=== PATIENT | female | born 1950 | race Caucasian/White ===

== ENCOUNTER 2019-03-22 09:45 | Inpatient (IN) | payer OTHER ==
[2019-03-22 09:58] VITALS: BMI 34.3
--- NOTE | 2019-03-22 10:36 | PDOC ---
History of Present Illness - General Chief Complaint: Shortness of Breath Stated Complaint: SOB/ CHEST PAIN Time Seen by Provider: 03/22/19 10:16 Past History - Past Medical History Allergies/Adverse Reactions: Allergies Allergy/AdvReac Type Severity Reaction Status Date / Time Penicillins Allergy Verified 03/22/19 09:58 Home Medications: Ambulatory Orders Allopurinol [Zyloprim -] 100 mg PO BID 03/22/19 Amiodarone HCl 200 mg PO DAILY 03/22/19 Cyanocobalamin (Vitamin B-12) [Vitamin B-12] 1,000 mcg PO DAILY 03/22/19 Doxazosin Mesylate 2 mg PO DAILY 03/22/19 Ergocalciferol (Vitamin D2) [Vitamin D2] 1 cap PO WEEKLY 03/22/19 Ergocalciferol (Vitamin D2) [Vitamin D2] 50,000 unit PO WEEKLY 03/22/19 Folic Acid - 1 mg PO DAILY 03/22/19 Furosemide 20 mg PO DAILY 03/22/19 Hydralazine HCl 100 mg PO TID 03/22/19 Levothyroxine [Synthroid -] 50 mcg PO DAILY 03/22/19 Metoprolol Succinate 200 mg PO DAILY 03/22/19 [place]-3/Dha/Epa/Fish Oil [[place] 3 500 Softgel] 350 mg PO DAILY 03/22/19 Potassium Chloride [Klor-Con M10] 10 mg PO DAILY 03/22/19 Rivaroxaban [Xarelto -] 20 mg PO DAILY 03/22/19 Rosuvastatin Calcium 10 mg PO DAILY 03/22/19 Cancer: Yes (uterine with spot on her kidney) COPD: No Diabetes: Yes HTN: Yes - Psycho Social/Smoking Cessation Hx Smoking History: Never smoked *Physical Exam - Vital Signs Last Vital Signs Temp Pulse Resp BP Pulse Ox 97.9 F 82 18 101/34 L 99 03/22/19 09:53 03/22/19 09:53 03/22/19 09:53 03/22/19 09:53 03/22/19 09:53 ED Treatment Course - LABORATORY CBC & Chemistry Diagram: 03/22/19 10:39 03/22/19 19:32 Medical Decision Making - Medical Decision Making HPI: 68yo F with PMH of uterine CA (with spot on her kidney), afib on xarelto, HTN, HLD, afib, gout, thyroid disorder, "low blood counts" presenting with weakness, dyspnea on exertion, poor appetite, and an abnormal feeling in her chest. Patient states she last received a radiation treatment five weeks ago and had a total hysterectomy in October 2018. She was told she had "low blood counts" by her doctor and referred to a GI specialist and has an appointment on 04/10. Denies melena, hematochezia, or hematemesis. The chest sensation is described as "gas" and she has never had it before. No associated nausea, vomiting, or diaphoresis. The patient cannot walk to the bathroom without feeling short of breath. Feels like she has enough help at home. No fevers or chills. PCP: Dr. Zhou Faculty Research Assistant Onc: Dr. Berger ([place]) Urologist: Dr. Zhang Rad Onc: Dr. Caro GI: has an appointment to see Dr. Garcia on 04/10 ROS: Constitutional: no fever, +poor appetite HEENT: no throat pain, no dysphagia Cardiovascular: +chest pain, no palpitations Respiratory: no cough, +dyspnea on exertion Gastrointestinal: no abdominal pain, no nausea Genitourinary: no dysuria, no hematuria Musculoskeletal: no myalgia, no arthralgia Skin: no rash, no itching Neurologic: no headache, +weakness PE: General: Awake, alert, and fully oriented, in no acute distress Head: No signs of trauma Eyes: EOMI, sclera anicteric ENT: Moist mucus membranes Neck: Normal ROM, supple Lungs: Lungs clear, Normal breath sounds Cardio: Irregular rhythm, S1 and S2 present Abdomen: Soft, nontender. No guarding, no rebound, no masses Extremities: Normal range of motion, Distal pulses present SKIN: Warm, Dry, normal turgor Neurologic: Cranial nerves II through XII grossly intact. Normal speech ED Course/MDM: DDX including but not limited to anemia, metabolic derangement, PE, ACS, GI bleed Labs, EKG, CXR Fluids Pepcid 03/22/19 10:36 CBC WBC 5.9 K/mm3 (4.0-10.0) 03/22/19 10:39 RBC 2.32 M/mm3 (3.60-5.2) L 03/22/19 10:39 Hgb 8.6 GM/dL (10.7-15.3) L 03/22/19 10:39 Hct 24.5 % (32.4-45.2) L D 03/22/19 10:39 MCV 105.5 fl (80-96) H 03/22/19 10:39 MCH 36.8 pg (25.7-33.7) H D 03/22/19 10:39 MCHC 34.9 g/dl (32.0-36.0) 03/22/19 10:39 RDW 17.1 % (11.6-15.6) H 03/22/19 10:39 Plt Count 285 K/MM3 (134-434) D 03/22/19 10:39 MPV 6.7 fl (7.5-11.1) L D 03/22/19 10:39 Absolute Neuts (auto) 5.4 K/mm3 (1.5-8.0) 03/22/19 10:39 Neutrophils % 91.0 % (42.8-82.8) H 03/22/19 10:39 Lymphocytes % 3.3 % (8-40) L 03/22/19 10:39 Monocytes % 5.2 % (3.8-10.2) 03/22/19 10:39 Eosinophils % 0.4 % (0-4.5) 03/22/19 10:39 Basophils % 0.1 % (0-2.0) 03/22/19 10:39 Nucleated RBC % 0 % (0-0) 03/22/19 10:39 No leukocytosis Hgb is low CMP Sodium 142 mmol/L (136-145) 03/22/19 10:39 Potassium 3.7 mmol/L (3.5-5.1) 03/22/19 10:39 Chloride 105 mmol/L (98-107) 03/22/19 10:39 Carbon Dioxide 25 mmol/L (21-32) 03/22/19 10:39 Anion Gap 11 MMOL/L (8-16) 03/22/19 10:39 BUN 26.5 mg/dL (7-18) H 03/22/19 10:39 Creatinine 1.6 mg/dL (0.55-1.3) H 03/22/19 10:39 Est GFR (CKD-EPI)AfAm 38.52 03/22/19 10:39 Est GFR (CKD-EPI)NonAf 33.23 03/22/19 10:39 Random Glucose 174 mg/dL (74-106) H 03/22/19 10:39 Calcium 8.6 mg/dL (8.5-10.1) 03/22/19 10:39 Magnesium 2.2 mg/dL (1.8-2.4) 03/22/19 10:39 Total Bilirubin 1.5 mg/dL (0.2-1) H 03/22/19 10:39 AST 15 U/L (15-37) 03/22/19 10:39 ALT 20 U/L (13-61) 03/22/19 10:39 Alkaline Phosphatase 97 U/L (45-117) 03/22/19 10:39 Troponin I < 0.02 ng/ml (0.00-0.05) 03/22/19 10:39 Total Protein 7.5 g/dl (6.4-8.2) 03/22/19 10:39 Albumin 2.9 g/dl (3.4-5.0) L 03/22/19 10:39 Electrolytes unremarkable Cr elevated Tpn undetectable CXR with opacity on Left lower lobe D-dimer elevated While PE is a possibility, elevated Cr precludes our ability to obtain CT with contrast. Patient without tachycardia or hypoxia. I believe PNA or metastasis better explains patient's presentation especially given abnormal CXR Decision made to order CT Chest without contrast to better characterize this abnormality seen on chest xray 03/22/19 14:00 Dr. Wallace received verbal report regarding Lower lobe PNA We will cover with Vancomycin, Aztreonam, and Azithromycin (patient is pcn allergic) CURB-65 score of 3 Plan for admission 03/22/19 15:[address] Zhou, Awaiting callback from JON Aviles 03/22/19 15:[address] Zhou 03/22/19 16:35 Discussed case with JON Aviles who accepted patient for admission under Dr. Zhou 03/22/19 16:[address], as read by Imaging tour production supervisor: "Findings: There is a heterogeneous area of consolidation within the anterior aspect of the right lower lobe associated with some heterogeneous right lower lobe groundglass opacities. There is also some subtle heterogeneous opacity within the anterior aspect of the left lobe. These findings are most consistent with pneumonia. The remainder of the pulmonary parenchyma is clear. Visualized portions of the airway are within normal limits. There is a small left and tiny right pleural effusions. There are no enlarged axillary, hilar or mediastinal lymph nodes, by size criteria. Within the medial aspect of segment 2 of the liver there is a 1.8 cm heterogeneously hypodense nodule which is indeterminate but could represent a cyst. The remainder of the wrist lies portions of the upper abdomen are unremarkable. The visualized bony structures are unremarkable for the patient's age. Impression: 1. There is a consolidation within the left lower and upper lobes most consistent with pneumonia. 2. Hypodense nodule within the left lateral lobe of the liver which is not completely characterized. Recommend further evaluation with a targeted hepatic sonogram to assess for cyst versus solid neoplasm. 3. Small left and tiny right pleural effusions." Discharge - Discharge Information Problems reviewed: Yes Clinical Impression/Diagnosis: Pneumonia Qualifiers: Pneumonia type: due to unspecified organism Laterality: left Lung location: lower lobe of lung Qualified Code(s): J18.1 - Lobar pneumonia, unspecified organism Condition: Guarded - Admission Yes - Follow up/Referral - Patient Discharge Instructions - Post Discharge Activity
[2019-03-22 10:52] LABS: BASO % 0.1 % (0-2.0); EOS % 0.4 % (0-4.5); HEMATOCRIT 24.5 % (32.4-45.2); HEMOGLOBIN 8.6 GM/dL (10.7-15.3); LYMPH % 3.3 % (8-40); MCH 36.8 pg (25.7-33.7); MCHC 34.9 g/dl (32.0-36.0); MEAN CELL VOLUME 105.5 fl (80-96); MEAN PLT VOLUME 6.7 fl (7.5-11.1); MONO % 5.2 % (3.8-10.2); PLATELET COUNT 285 K/MM3 (134-434); RBC 2.32 M/mm3 (3.60-5.2); RDW 17.1 % (11.6-15.6); WHITE BLOOD COUNT 5.9 K/mm3 (4.0-10.0)
--- NOTE | 2019-03-22 10:52 | PDOC ---
Attending Attestation - Resident Resident Name: Georgette Stahl - ED Attending Attestation I have performed the following: I have examined & evaluated the patient, The case was reviewed & discussed with the resident, I agree w/resident's findings & plan, Exceptions are as noted - HPI HPI: 03/22/19 12:26 68y F hx of uterine ca (with met to kidney, sp hysterecomy, sp recent radiation therapy for her kidney met), afib on xaralto, htn, hl, recently dx anemia, presents with SOB/CLAROS for the past few days and mild R sided cp with inhalation. pt deines any exertional cp, cough, feve/chills, hemoptysis, orthopnea, incerased leg swelling, diarrhea, dysuria. Pt notes her exercise tolerance is significantly deminished - she was formerly able to get up her stairs slowly in one attempt, but since sat, notes she has needed to get up on he hands and knees. PCP: Dr. Zhou Advance Agent Onc: Dr. Berger ([place]) Urologist: Dr. Zhang Rad Onc: Dr. Caro GI: has an appointment to see Dr. Garcia on 04/10 - Physicial Exam PE: 03/22/19 12:31 GENERAL: The patient is awake, alert, and fully oriented, Nontoxic - in no acute distress. HEAD: Normocephalic, atraumatic. EYES: extraocular movements intact, sclera anicteric, conjunctiva clear. LUNGS: Breath sounds equal, clear to auscultation bilaterally. No wheezes, no rhonchi, no rales. HEART: Regular rate and rhythm, ABDOMEN: Soft, nontender, No guarding, no rebound. No CVA tenderness NEUROLOGICAL: No facial assymetry, Normal speech, PSYCH: Normal mood, normal affect. SKIN: Warm, Dry, normal turgor, - Medical Decision Making 03/22/19 12:32 ddx - pe - but pt already on ac, pna cxr noted for LLL infiltrate - will obtain CT to further evalutae this infiltrate anticipate admission for further management 03/22/19 15:42 ct noted for pna gallo treat with abx gallo admit for further managmnt
[2019-03-22 11:04] LABS: INR 3.8 (0.83-1.09); PROTHROMBIN TIME (PATIENT) 45.5 SEC (9.7-13.0)
[2019-03-22 11:05] LABS: ALBUMIN 2.9 g/dl (3.4-5.0); BILIRUBIN,TOTAL 1.5 mg/dL (0.2-1); BLOOD UREA NITROGEN 26.5 mg/dL (7-18); CALCIUM 8.6 mg/dL (8.5-10.1); CREATININE 1.6 mg/dL (0.55-1.3); MAGNESIUM 2.2 mg/dL (1.8-2.4); POTASSIUM 3.7 mmol/L (3.5-5.1); TOT PROT 7.5 g/dl (6.4-8.2)
[2019-03-22] MEDS ORDERED: SODIUM CHLORIDE 0.9% 500 ML INFUS.BAG IV ONE (11:16)
[2019-03-22] MEDS ORDERED: FAMOTIDINE 20 MG/50 ML IVPB 20 MG/50 ML MG IVPB ONE ×2 (11:39→11:49)
[2019-03-22 15:00] LABS: ANISOCYTOSIS 1+; MACROCYTOSIS 1+; OVALOCYTE 1+; PLATELET ESTIMATE NORMAL; TOXIC GRANULATION 1+
[2019-03-22] MEDS ORDERED: VANCOMYCIN 1,000 MG in DEXTROSE 5%-WATER - 250 ML IVPB ONE (15:11)
[2019-03-22] MEDS ORDERED: AZITHROMYCIN IVPB 500 MG in DEXTROSE 5%-WATER - 250 ML IVPB ONE (15:14)
[2019-03-22] MEDS ORDERED: AZITHROMYCIN IVPB 500 MG/250 ML BAG IVPB ONE (16:00)
[2019-03-22] MEDS: AZTREONAM 2 GM in DEXTROSE 5%-WATER - 50 ML IVPB ONE ×2 (16:51→18:13)
[2019-03-22] MEDS ORDERED: ACETAMINOPHEN 325 MG TABLET (FP) PO PRN (19:01)
[2019-03-22] MEDS ORDERED: BENZOCAINE/MENTH/CETYLPYRD CL 1 EACH LOZENGE MM PRN (19:05)
[2019-03-22] MEDS ORDERED: guaiFENesin/D-METHORPHAN HB 10 ML UNIT-DOSE CUPS PO PRN (19:05)
[2019-03-22 20:30] LABS: ALBUMIN 2.7 g/dl (3.4-5.0); BILIRUBIN,TOTAL 1.2 mg/dL (0.2-1); BLOOD UREA NITROGEN 25.3 mg/dL (7-18); CALCIUM 7.4 mg/dL (8.5-10.1); CREATININE 1.5 mg/dL (0.55-1.3); POTASSIUM 3.5 mmol/L (3.5-5.1); TOT PROT 6.2 g/dl (6.4-8.2)
[2019-03-22] MEDS: ALLOPURINOL 100 MG TABLET (FP) PO SCH ×2 (21:05→21:08)
[2019-03-23 07:44] LABS: BASO % 0.3 % (0-2.0); EOS % 0.7 % (0-4.5); HEMATOCRIT 20.3 % (32.4-45.2); LYMPH % 4.7 % (8-40); MCH 36.4 pg (25.7-33.7); MCHC 34.3 g/dl (32.0-36.0); MEAN CELL VOLUME 106.1 fl (80-96); MEAN PLT VOLUME 7.2 fl (7.5-11.1); MONO % 6.9 % (3.8-10.2); NEUT % 87.4 % (42.8-82.8); PLATELET COUNT 271 K/MM3 (134-434); RBC 1.92 M/mm3 (3.60-5.2); RDW 17.1 % (11.6-15.6); WHITE BLOOD COUNT 5.4 K/mm3 (4.0-10.0)
[2019-03-23] MEDS: LEVOTHYROXINE NA 50 MCG TABLET (FP) PO SCH (08:16)
--- NOTE | 2019-03-23 09:59 | HP ---
Admitting History and Physical - Primary Care Physician PCP: Rosy Zhou - Admission Chief Complaint: Difficulty breathing History of Present Illness: Patient is a 68 y/o female with past medical history of Uterine CA (with mets to kidney, s/p hysterectomy, s/p recent RT [address] Berger at [facility]), Afib on Xarelto, HTN, HLD, Anemia. Patient presented to ER after experiencing difficulty breathing x 3-4 days at home. She states pain was exacerbated with movement and felt chest pain when she would take a deep breath. Denies fever, chills, dizziness, or cough. History Source: Patient Limitations to Obtaining History: No Limitations - Past Medical History Cardiovascular: Yes: AFIB, HTN, Hyperlipdemia Renal/: Yes: Other (Kidney Metastasis) Heme/Onc: Yes: Anemia, Current Radiation Therapy - Past Surgical History Past Surgical History: Yes: Hysterectomy - Smoking History Smoking history: Never smoked - Social History ADL: Independent History of Recent Travel: No Home Medications - Allergies Allergies/Adverse Reactions: Allergies Allergy/AdvReac Type Severity Reaction Status Date / Time Penicillins Allergy Verified 03/22/19 09:58 - Home Medications Home Medications: Ambulatory Orders Allopurinol [Zyloprim -] 100 mg PO BID 03/22/19 Amiodarone HCl 200 mg PO DAILY 03/22/19 Cyanocobalamin (Vitamin B-12) [Vitamin B-12] 1,000 mcg PO DAILY 03/22/19 Doxazosin Mesylate 2 mg PO DAILY 03/22/19 Ergocalciferol (Vitamin D2) [Vitamin D2] 1 cap PO WEEKLY 03/22/19 Ergocalciferol (Vitamin D2) [Vitamin D2] 50,000 unit PO WEEKLY 03/22/19 Folic Acid - 1 mg PO DAILY 03/22/19 Furosemide 20 mg PO DAILY 03/22/19 Hydralazine HCl 100 mg PO TID 03/22/19 Levothyroxine [Synthroid -] 50 mcg PO DAILY 03/22/19 Metoprolol Succinate 200 mg PO DAILY 03/22/19 [place]-3/Dha/Epa/Fish Oil [[place] 3 500 Softgel] 350 mg PO DAILY 03/22/19 Potassium Chloride [Klor-Con M10] 10 mg PO DAILY 03/22/19 Rivaroxaban [Xarelto -] 20 mg PO DAILY 03/22/19 Rosuvastatin Calcium 10 mg PO DAILY 03/22/19 Review of Systems - Review of Systems Constitutional: reports: No Symptoms Eyes: reports: No Symptoms HENT: reports: No Symptoms Neck: reports: No Symptoms Cardiovascular: reports: Chest Pain Respiratory: reports: SOB, SOB on Exertion Gastrointestinal: reports: No Symptoms Genitourinary: reports: No Symptoms Breasts: reports: No Symptoms Reported Musculoskeletal: reports: No Symptoms Integumentary: reports: No Symptoms Neurological: reports: No Symptoms Endocrine: reports: No Symptoms Hematology/Lymphatic: reports: No Symptoms Psychiatric: reports: No Symptoms Physical Examination Vital Signs: Vital Signs Temperature 99 F 03/22/19 22:50 Pulse Rate 72 03/22/19 22:50 Respiratory Rate 18 03/22/19 22:50 Blood Pressure 111/44 L 03/22/19 22:50 O2 Sat by Pulse Oximetry (%) 97 03/22/19 22:50 Constitutional: Yes: No Distress, Calm Eyes: Yes: Conjunctiva Clear HENT: Yes: Atraumatic Cardiovascular: Yes: Regular Rate and Rhythm Respiratory: Yes: Regular, Diminished, On Nasal O2, SOB on Exertion Gastrointestinal: Yes: Normal Bowel Sounds, Soft Musculoskeletal: Yes: WNL Extremities: Yes: WNL Edema: No Neurological: Yes: Alert, Oriented Psychiatric: Yes: Alert, Oriented Labs: CBC, BMP 03/23/19 06:45 03/22/19 19:32 Imaging - Results Cat Scan: Report Reviewed Problem List - Problems (1) Afib Assessment/Plan: -Xarelto -Amiodarone for rate control Code(s): I48.91 - UNSPECIFIED ATRIAL FIBRILLATION (2) HTN (hypertension) Assessment/Plan: -low Na diet -Cardura Code(s): I10 - ESSENTIAL (PRIMARY) HYPERTENSION (3) Uterine cancer Assessment/Plan: -Oncology consult -last RT 1 month ago Code(s): C55 - MALIGNANT NEOPLASM OF UTERUS, PART UNSPECIFIED (4) SOB (shortness of breath) Assessment/Plan: -Pulm Consult -Bronchodilators -O2 via NC -Chest CT scan shows 2.2 x 2.1cm subpleural mass MADHAVI anterolaterally, LLL mass measuring 4.4 x 7.1cm, prominence of interstitial markings within the left base suggesting fluid or lymphangitic spread, 5.8mm nodule noted within the lateral segment of the right middle lobe, small effusion on the left, trace effusion on the right, left hilar adenopathy measuring 1.8cm, pretracheal lymph node measuring 5mm, 1.8 x 1.8 low-density lesion segment IVb of the liver is noted Code(s): R06.02 - SHORTNESS OF BREATH (5) Pneumonia Assessment/Plan: -Pulm Consult -Bronchodilators -O2 via NC -Chest CT scan shows 2.2 x 2.1cm subpleural mass MADHAVI anterolaterally, LLL mass measuring 4.4 x 7.1cm, prominence of interstitial markings within the left base suggesting fluid or lymphangitic spread, 5.8mm nodule noted within the lateral segment of the right middle lobe, small effusion on the left, trace effusion on the right, left hilar adenopathy measuring 1.8cm, pretracheal lymph node measuring 5mm, 1.8 x 1.8 low-density lesion segment IVb of the liver is noted -ID consult -no leukocytosis -low grade temps -Azithromycin, Ertapenem -BC pending -Urine Legiionella pending Code(s): J18.9 - PNEUMONIA, UNSPECIFIED ORGANISM Qualifiers: Pneumonia type: due to unspecified organism Laterality: left Lung location: lower lobe of lung Qualified Code(s): J18.1 - Lobar pneumonia, unspecified organism (6) HLD (hyperlipidemia) Assessment/Plan: -Rosuvastatin Code(s): E78.5 - HYPERLIPIDEMIA, UNSPECIFIED (7) Anemia Assessment/Plan: -Hg 7.0 -will transfuse 1U PRBC -monitor Hg daily -transfuse for Hg <7.0 -Stool OB -iron panel Code(s): D64.9 - ANEMIA, UNSPECIFIED (8) Liver lesion Assessment/Plan: -GI consult -Abdominal US Code(s): K76.9 - LIVER DISEASE, UNSPECIFIED Assessment/Plan see problem list
[2019-03-23] MEDS ORDERED: AZITHROMYCIN IVPB 250 MG in DEXTROSE 5%-WATER - 250 ML IVPB SCH (10:00)
[2019-03-23] MEDS ORDERED: ERTAPENEM SODIUM 1 GM in SODIUM CHLORIDE 50 ML IVPB SCH (10:00)
[2019-03-23] MEDS ORDERED: DOXAZOSIN MESYLATE 2 MG TABLET (FP) PO SCH (10:00)
[2019-03-23] MEDS: FUROSEMIDE 20 MG TABLET (FP) PO SCH (10:25)
[2019-03-23] MEDS: CYANOCOBALAMIN 1,000 MCG TABLET (FP) PO SCH (10:25)
[2019-03-23] MEDS: AMIODARONE HCL 200 MG TABLET (FP) PO SCH (10:25)
[2019-03-23] MEDS: ROSUVASTATIN CA 10 MG TABLET (FP) PO SCH (10:25)
[2019-03-23] MEDS: POTASSIUM CHLORIDE TABS 10 MEQ TABLET.ER (FP) PO SCH (10:25)
[2019-03-23] MEDS: FOLIC ACID 1 MG TABLET (FP) PO SCH (10:26)
[2019-03-23] MEDS: RIVAROXABAN 20 MG TABLET PO SCH (10:27)
[2019-03-23] MEDS: ERGOCALCIFEROL (VIT D2) 50,000 UNIT (1.25 MG) CAPSULE PO SCH (10:29)
[2019-03-23] MEDS: DOXAZOSIN MESYLATE 2 MG TABLET (FP) PO SCH (10:29)
--- NOTE | 2019-03-23 10:29 | EKG ---
Test Reason : Blood Pressure : / mmHG Vent. Rate : 080 BPM Atrial Rate : 080 BPM P-R Int : 146 ms QRS Dur : 094 ms QT Int : 386 ms P-R-T Axes : 000 003 073 degrees QTc Int : 445 ms SINUS RHYTHM WITH PREMATURE SUPRAVENTRICULAR COMPLEXES AND WITH FREQUENT PREMATURE VENTRICULAR COMPLEXES INCOMPLETE RIGHT BUNDLE BRANCH BLOCK NONSPECIFIC ST AND T WAVE ABNORMALITY ABNORMAL ECG WHEN COMPARED WITH ECG OF 10-JUL-2011 11:09, PREMATURE SUPRAVENTRICULAR COMPLEXES ARE NOW PRESENT Confirmed by DAVINA SPEARS MD ([id number]) on 03/23/2019 10:28:30 AM Referred By: Confirmed By:DAVINA SPEARS MD
[2019-03-23] MEDS: ALLOPURINOL 100 MG TABLET (FP) PO SCH ×2 (10:30→21:36)
--- NOTE | 2019-03-23 10:53 | CON.PULM ---
Consult Consult Specialty:: PULMONARY Referred by:: Dr Zhou Reason for Consultation:: lung mass - History of Present Illness Chief Complaint: shortness of breath History of Present Illness: 68yo female with h/o HTN, hyperlipidemia, anemia, atrial fibrillation, uterine ca s/p hysterectomy/RT who was admitted with shortness of breath. Denies chest pain or discomfort to me but per chart had been experiencing left sided pleuritic chest pain. She denies fevers, chills or sweats. No unintentional weight loss. CT chest showing MADHAVI nodule and LLL mass like consolidation. She denies any prior lung involvement but last CXR was in October during her hysterectomy. She had a recent CT A/P 3 weeks ago as an outpt, results pending. - History Source History Provided By: Patient, Family Member, Medical Record Limitations to Obtaining History: No Limitations - Past Medical History Cardio/Vascular: Yes: AFIB, HTN, Hyperlipdemia Renal/: Yes: Other (Kidney Metastasis) - Past Surgical History Past Surgical History: Yes: Hysterectomy - Smoking History Smoking history: Never smoked - Social History ADL: Independent History of Recent Travel: No Home Medications - Allergies Allergies/Adverse Reactions: Allergies Allergy/AdvReac Type Severity Reaction Status Date / Time Penicillins Allergy Verified 03/22/19 09:58 - Home Medications Home Medications: Ambulatory Orders Allopurinol [Zyloprim -] 100 mg PO BID 03/22/19 Amiodarone HCl 200 mg PO DAILY 03/22/19 Cyanocobalamin (Vitamin B-12) [Vitamin B-12] 1,000 mcg PO DAILY 03/22/19 Doxazosin Mesylate 2 mg PO DAILY 03/22/19 Ergocalciferol (Vitamin D2) [Vitamin D2] 1 cap PO WEEKLY 03/22/19 Ergocalciferol (Vitamin D2) [Vitamin D2] 50,000 unit PO WEEKLY 03/22/19 Folic Acid - 1 mg PO DAILY 03/22/19 Furosemide 20 mg PO DAILY 03/22/19 Hydralazine HCl 100 mg PO TID 03/22/19 Levothyroxine [Synthroid -] 50 mcg PO DAILY 03/22/19 Metoprolol Succinate 200 mg PO DAILY 03/22/19 [place]-3/Dha/Epa/Fish Oil [[place] 3 500 Softgel] 350 mg PO DAILY 03/22/19 Potassium Chloride [Klor-Con M10] 10 mg PO DAILY 03/22/19 Rivaroxaban [Xarelto -] 20 mg PO DAILY 03/22/19 Rosuvastatin Calcium 10 mg PO DAILY 03/22/19 Review of Systems - Review of Systems Constitutional: denies: Chills, Fever, Weakness Eyes: denies: Recent Change in Vision HENT: denies: Nasal Congestion, Throat Pain Neck: denies: Stiffness, Tenderness Cardiovascular: reports: Chest Pain, Shortness of Breath. denies: Edema, Palpitations Respiratory: denies: Cough, Hemoptysis, Wheezing Gastrointestinal: denies: Abdominal Pain, Nausea, Vomiting Genitourinary: denies: Dysuria, Hematuria Neurological: denies: Dizziness, Headache Endocrine: denies: Unexplained Weight Loss Physical Exam Vital Sings: Vital Signs Temperature 99 F 03/22/19 22:50 Pulse Rate 72 03/22/19 22:50 Respiratory Rate 18 03/22/19 22:50 Blood Pressure 111/44 L 03/22/19 22:50 O2 Sat by Pulse Oximetry (%) 97 03/22/19 22:50 Constitutional: Yes: Calm Eyes: Yes: Conjunctiva Clear, EOM Intact HENT: Yes: Atraumatic, Normocephalic Neck: Yes: Supple, Trachea Midline Cardiovascular: Yes: Regular Rate and Rhythm Respiratory: Yes: Diminished (decreased breath sounds at the bases) ...Clubbing: No Gastrointestinal: Yes: Normal Bowel Sounds, Soft. No: Tenderness Edema: No Neurological: Yes: Alert, Oriented Labs: CBC, BMP 03/23/19 06:45 03/22/19 19:32 Imaging - Results Chest X-ray: Report Reviewed, Image Reviewed Cat Scan: Report Reviewed, Image Reviewed (MADHAVI pleural based nodule, left hilar lymphadenopathy, LLL mass like consolidation) Problem List - Problems (1) SOB (shortness of breath) Code(s): R06.02 - SHORTNESS OF BREATH (2) Afib Code(s): I48.91 - UNSPECIFIED ATRIAL FIBRILLATION (3) Anemia Code(s): D64.9 - ANEMIA, UNSPECIFIED (4) HLD (hyperlipidemia) Code(s): E78.5 - HYPERLIPIDEMIA, UNSPECIFIED (5) HTN (hypertension) Code(s): I10 - ESSENTIAL (PRIMARY) HYPERTENSION (6) Liver lesion Code(s): K76.9 - LIVER DISEASE, UNSPECIFIED (7) Pneumonia Code(s): J18.9 - PNEUMONIA, UNSPECIFIED ORGANISM Qualifiers: Pneumonia type: due to unspecified organism Laterality: left Lung location: lower lobe of lung Qualified Code(s): J18.1 - Lobar pneumonia, unspecified organism (8) Uterine cancer Code(s): C55 - MALIGNANT NEOPLASM OF UTERUS, PART UNSPECIFIED Assessment/Plan Uterine Ca s/p Hysterectomy/RT Lung Nodule/Mass/Liver Lesion suspect metastatic disease r/o Pneumonia Atrial Fibrillation HTN Hyperlipidemia - would treat for pneumonia empirically although imaging suggestive of metastatic disease - obtain results of last CT A/P - will likely need biopsy of lung mass via CT guided needle biopsy or bronchoscopy - DVT prophylaxis Thank you for this consult Ventura Johnson MD
--- NOTE | 2019-03-23 11:31 | CONSULT ---
Consult - text type - Consultation Consultation Note: Hematology and oncology consult Subjective: The patient is a 68 yo f w/ PMH Uterine ca (s/p total hysterectomy and b/l oophrectomy w/ radiation), afib on xeralto, HTN, Anemia who comes into the ED c/ o progressively worsening SOB and dyspnea on exertion. The patient associates these symptoms w/ mild right sided CP. CT chest from the ED showed several left sided masses and nodules with associated lymphadenopathy. Hematology/oncology were called for assistance with management. Patient states that she was diagnosed with uterine cancer in august of 2018. She underwent a total hysterectomy and b/l oophrectomy in october of 2018 w/ Dr. Berger (district associate judge onc) at [place]. She subsequently underwent pelvic radiation with Dr. German. Patient states that she did not receive chemotherapy. A abdomen/ pelvic CT done recently at [facility] showed a "spot on the kidney" per the patient, and she has been seeing a urology oncologist (Dr. Zhang) to follow with this finding. Per the patient, she did not receive any treatment for this and it was never biopsied. In the emergency department, A CT of the chest was performed. The CT revealed a 2.2 x 2.1 cm subplural mass in the left upper lobe, a 4.4 x 7.1 cm mass in the left lower lobe, 5.8 mm nodule, left hilar adenopathy and a pre-tracheal lymph node measuring 5 mm. The patient was admitted for the treatment of community acquired versus post obstructive pneumonia. On my interview, the patient was found lying in bed on supplemental O2. She was slightly short of breath but could speak in full sentences. The patient states that her shortness of breath is unchanged since admission. Patient denies abdominal pain, fever, constipation, diarrhea, bleeding, cough, hemoptysis. Family History: Mother w/ breast ca, father with laryngeal Ca (was a smoker) Social Hx: Former smoker. Patient denies recreational drug or alcohol use. Objective: Vital Signs Temperature 98.8 F 03/23/19 10:00 Pulse Rate 66 03/23/19 10:00 Respiratory Rate 18 03/23/19 10:00 Blood Pressure 121/67 03/23/19 10:00 O2 Sat by Pulse Oximetry (%) 97 03/22/19 22:50 Physical Exam: General: Patient well appearing and sitting up in bed. Lungs: Crackles on the left in the mid lung field Heart: regular rate a rhythm, s1, s2 heard. No murmurs, gallops or rubs auscultated Abdomen: soft, nontender, nondistended, bowel sounds heard CBC, BMP 03/23/19 06:45 03/22/19 19:32 Assessment and plan: The patient is a 68 yo f w/ PMH Uterine ca (s/p total hysterectomy and b/l oophrectomy w/ radiation), afib on xeralto, HTN, Anemia who comes into the ED c/ o progressively worsening SOB and dyspnea on exertion. She was found to have several masses and lymphadenopathy in the left lung on CT chest. She has been admitted for the treatment of pneumonia and further evaluation of these lung masses. #Shortness of breath, dyspnea on exertion likely secondary to post obstructive versus community acquired pneumonia. -Antibiotics per ID -blood cultures pending #New masses, nodules and lymphadenopathy in the lung rule out metastatic disease. -Patient follows at [facility] for the majority of her medical care (see HPI) -will contact Dr. German, who has treated her in the past, for more information regarding her disease staging and history. -Patient may elect to follow-up with her oncologists at [place]. #Anemia possibly secondary chronic disease versus iron deficiency -hemoglobin 7.0 today -iron found to be low this admission. -Last colonoscopy was six years ago and was unremarkable -patient had recent endoscopy which was unremarkable -status post when units PRBC -follow-up post transfusion CBC -monitor daily CBCs
[2019-03-23] MEDS ORDERED: DEXTROSE 5%-WATER 100 ML IVPB ONE (12:19)
[2019-03-23] MEDS: CEFTRIAXONE 2 GM in DEXTROSE 5%-WATER 100 ML IVPB SCH (13:20)
[2019-03-23] MEDS: CLINDAMYCIN 600MG PREMIX IVPB 600 MG/50 ML BAG IVPB SCH ×2 (13:21→17:02)
--- NOTE | 2019-03-23 14:03 | CON.GI ---
Consult Consult Specialty:: GI Referred by:: Medicine Reason for Consultation:: anemia - History of Present Illness Chief Complaint: SOB History of Present Illness: 68F with h/o metastatic uterine ca s/p TAHBSO 10/2018 with pelvic RT completed one week ago, HTN, AF, presenting for evaluation of SOB. CT chest obtained and concerning for PNA vs metastasis, now receiving abx for PNA. GI consulted for anemia and for liver lesion. hgb 8.5, macrocytic, iron studies as per chart. Patient reports no abdominal pain, normal daily bm without bleeding. No N/V, no dysphagia, good appetite. Last colonoscopy 6 years ago, ? small polyps. Had EGD and colonoscopy 10 years ago that per her report were unremarkable. She has an appointment to see Dr. Garcia as an outpatient on 04/10. Liver lesion - seen on CT chest. Patient denies prior knowledge of this. Had CT A/P recently as part of renal lesion eval at [facility]. - History Source History Provided By: Patient, Family Member - Past Medical History Cardio/Vascular: Yes: AFIB, HTN, Hyperlipdemia Renal/: Yes: Other (Kidney Metastasis) - Past Surgical History Past Surgical History: Yes: Hysterectomy - Smoking History Smoking history: Never smoked - Social History ADL: Independent History of Recent Travel: No Home Medications - Allergies Allergies/Adverse Reactions: Allergies Allergy/AdvReac Type Severity Reaction Status Date / Time Penicillins Allergy Verified 03/22/19 09:58 - Home Medications Home Medications: Ambulatory Orders Allopurinol [Zyloprim -] 100 mg PO BID 03/22/19 Amiodarone HCl 200 mg PO DAILY 03/22/19 Cyanocobalamin (Vitamin B-12) [Vitamin B-12] 1,000 mcg PO DAILY 03/22/19 Doxazosin Mesylate 2 mg PO DAILY 03/22/19 Ergocalciferol (Vitamin D2) [Vitamin D2] 1 cap PO WEEKLY 03/22/19 Ergocalciferol (Vitamin D2) [Vitamin D2] 50,000 unit PO WEEKLY 03/22/19 Folic Acid - 1 mg PO DAILY 03/22/19 Furosemide 20 mg PO DAILY 03/22/19 Hydralazine HCl 100 mg PO TID 03/22/19 Levothyroxine [Synthroid -] 50 mcg PO DAILY 03/22/19 Metoprolol Succinate 200 mg PO DAILY 03/22/19 Jenkins-3/Dha/Epa/Fish Oil [Jenkins 3 500 Softgel] 350 mg PO DAILY 03/22/19 Potassium Chloride [Klor-Con M10] 10 mg PO DAILY 03/22/19 Rivaroxaban [Xarelto -] 20 mg PO DAILY 03/22/19 Rosuvastatin Calcium 10 mg PO DAILY 03/22/19 Review of Systems - Review of Systems Constitutional: reports: No Symptoms Eyes: reports: No Symptoms HENT: reports: No Symptoms Neck: reports: No Symptoms Cardiovascular: reports: Shortness of Breath Respiratory: reports: SOB Gastrointestinal: reports: No Symptoms Musculoskeletal: reports: No Symptoms Integumentary: reports: No Symptoms Hematology/Lymphatic: reports: No Symptoms Psychiatric: reports: No Symptoms Physical Exam-GI Vital Signs: Vital Signs Temperature 98.8 F 03/23/19 10:00 Pulse Rate 66 03/23/19 10:00 Respiratory Rate 18 03/23/19 10:00 Blood Pressure 121/67 03/23/19 10:00 O2 Sat by Pulse Oximetry (%) 97 03/22/19 22:50 Constitutional: Yes: Well Nourished, No Distress Eyes: Yes: Conjunctiva Clear Cardiovascular: Yes: Regular Rate and Rhythm Respiratory: Yes: CTA Bilaterally ...Palpate: Yes: Soft. No: Guarding, Tenderness ...Rectal Exam: Yes: Deferred Musculoskeletal: Yes: WNL Integumentary: Yes: WNL Neurological: Yes: Alert, Oriented Psychiatric: Yes: Alert, Oriented Labs: CBC, BMP 03/23/19 06:45 03/22/19 19:32 INR, PTT INR 3.80 (0.83-1.09) H 03/22/19 10:39 Imaging - Results Cat Scan: Report Reviewed Assessment/Plan 68F with anemia - mixed picture with a component of Fe deficiency. Patient was not put on iron after JODY in 10/2018 so could represent operative blood loss that has not recovered as yet. Drop to 7 from 8.6 in the absence of overt bleeding may be bone marrow related. Would favor endoscopic evaluation, but given lung findings, would defer until patient is optimized from a pulmonary perspective. Patient prefers to follow up with Dr. Garcia as an outpatient regarding procedures, which is reasonable as there is no overt bleeding and the appt is in 2.5 weeks. Regarding liver lesion, would ask that primary team obtain records of CT [facility]. Discussed in detail with patient and
--- NOTE | 2019-03-23 14:32 | CONSULT ---
Consult Consult Specialty:: Infectious Disease Referred by:: Stefan Jarrett Reason for Consultation:: PNA - History of Present Illness Chief Complaint: SOB x 3 days History of Present Illness: Pt is a 68 yo f with PMHx Uterine ca (s/p THBO w/ radiation, with kidney mets), afib on xarelto, HTN, Anemia, gout, hypothyroidism, DM presenting from home with 3 days hx of worsening SOB. Pt denies cough, or sputum production, no hemoptysis, no chest pain, denies fevers,or chills, no leg swelling. Has dyspnea on exertion but no orthopnea. Pt Had 5 weeks of radiation, last session 4 weeks ago. Was noted to have been anemic from PCP's office _ Dr Zhou and scheduled for GI follow up. She had her surgery at [facility] and was being followed up for possible kidney mets. No sick contacts, denies pneumonia vaccine, or flu vaccine. No hematuria, no rectal bleed, no abdominal pain. No weight loss. Pt first diagnosed with afib during cancer diagnosis this year, surgery October 2018. PMHx: As Above PShx s/p total hysterctomy with b/l oophorectomy Allergies: Penicillin- rash Social hx: Worked a s a homemaker Lives with Smoked from age 11 years to about 42 years (quit 28 years a go 1PPD) - History Source History Provided By: Patient, Medical Record Limitations to Obtaining History: No Limitations - Past Medical History Cardio/Vascular: Yes: AFIB, HTN, Hyperlipdemia Renal/: Yes: Other (Kidney Metastasis) Heme/Onc: Yes: Anemia, Cancer Endocrine: Yes: Hypothyroidism - Past Surgical History Past Surgical History: Yes: Hysterectomy - Alcohol/Substance Use Hx Alcohol Use: Yes Number of Drinks Daily: 2 - Smoking History Smoking history: Former smoker Have you smoked in the past 12 months: No Aproximately how many cigarettes per day: 20 If you are a former smoker, when did you quit?: 28 years ago - Social History Usual Living Arrangement: With Spouse ADL: Independent History of Recent Travel: No Home Medications - Allergies Allergies/Adverse Reactions: Allergies Allergy/AdvReac Type Severity Reaction Status Date / Time Penicillins Allergy Verified 03/22/19 09:58 - Home Medications Home Medications: Ambulatory Orders Allopurinol [Zyloprim -] 100 mg PO BID 03/22/19 Amiodarone HCl 200 mg PO DAILY 03/22/19 Cyanocobalamin (Vitamin B-12) [Vitamin B-12] 1,000 mcg PO DAILY 03/22/19 Doxazosin Mesylate 2 mg PO DAILY 03/22/19 Ergocalciferol (Vitamin D2) [Vitamin D2] 1 cap PO WEEKLY 03/22/19 Ergocalciferol (Vitamin D2) [Vitamin D2] 50,000 unit PO WEEKLY 03/22/19 Folic Acid - 1 mg PO DAILY 03/22/19 Furosemide 20 mg PO DAILY 03/22/19 Hydralazine HCl 100 mg PO TID 03/22/19 Levothyroxine [Synthroid -] 50 mcg PO DAILY 03/22/19 Metoprolol Succinate 200 mg PO DAILY 03/22/19 Pauline-3/Dha/Epa/Fish Oil [Pauline 3 500 Softgel] 350 mg PO DAILY 03/22/19 Potassium Chloride [Klor-Con M10] 10 mg PO DAILY 03/22/19 Rivaroxaban [Xarelto -] 20 mg PO DAILY 03/22/19 Rosuvastatin Calcium 10 mg PO DAILY 03/22/19 Family Medical History Family Hx Cancer: Mother (Breast cancer), Father (Thraot cancer) Review of Systems - Review of Systems Constitutional: denies: Chills, Fever, Night Sweats Eyes: denies: Blurred Vision HENT: denies: Difficult Swallowing, Nasal Congestion Cardiovascular: reports: Shortness of Breath. denies: Chest Pain, Edema Respiratory: reports: SOB on Exertion. denies: Cough, Hemoptysis Gastrointestinal: denies: Abdominal Pain Genitourinary: denies: Burning, Hematuria Musculoskeletal: denies: Back Pain Neurological: denies: Change in LOC, Confusion Physical Exam Vital Signs: Vital Signs Temperature 98.8 F 03/23/19 10:00 Pulse Rate 66 03/23/19 10:00 Respiratory Rate 18 03/23/19 10:00 Blood Pressure 121/67 03/23/19 10:00 O2 Sat by Pulse Oximetry (%) 97 03/22/19 22:50 Constitutional: Yes: Anxious, Obese Eyes: Yes: Conjunctiva Clear. No: PERRL, Sclera Icterus HENT: Yes: Atraumatic, Other (reddish macule tip of nose and L nose). No: Drooling, Epistaxis, Nasal Congestion Neck: Yes: Supple Cardiovascular: Yes: Regular Rate and Rhythm, S1, S2 Respiratory: Yes: Rales Gastrointestinal: Yes: Abdomen, Obese Edema: No Neurological: Yes: Alert, Oriented ...Motor Strength: WNL Psychiatric: Yes: Alert, Oriented Labs: CBC, BMP 03/23/19 06:45 03/22/19 19:32 Imaging - Results Chest X-ray: Report Reviewed, Image Reviewed (Lingular atelectasis/infiltrate with fulness of L hilumand ill defined density MADHAVI above atelectasis. Claear apex on L. Clear R lung and large heart) Cat Scan: Report Reviewed, Image Reviewed (2.2 x2.1 subpleural mass MADHAVI and ant lat LL mass 4.4 x7.1 cm. Prominenct interstitial lung markingsL base suggesting fluid/lymphagitic spread 5.8mm nodule R segment of ZR mid lobe. Pleural effusion , mild on L, trace on R. Hiatal hernia. 1.8x1.8 lesion of liver) Assessment/Plan Ambulatory Orders Allopurinol [Zyloprim -] 100 mg PO BID 03/22/19 Amiodarone HCl 200 mg PO DAILY 03/22/19 Cyanocobalamin (Vitamin B-12) [Vitamin B-12] 1,000 mcg PO DAILY 03/22/19 Doxazosin Mesylate 2 mg PO DAILY 03/22/19 Ergocalciferol (Vitamin D2) [Vitamin D2] 1 cap PO WEEKLY 03/22/19 Ergocalciferol (Vitamin D2) [Vitamin D2] 50,000 unit PO WEEKLY 03/22/19 Folic Acid - 1 mg PO DAILY 03/22/19 Furosemide 20 mg PO DAILY 03/22/19 Hydralazine HCl 100 mg PO TID 03/22/19 Levothyroxine [Synthroid -] 50 mcg PO DAILY 03/22/19 Metoprolol Succinate 200 mg PO DAILY 03/22/19 Pauline-3/Dha/Epa/Fish Oil [Pauline 3 500 Softgel] 350 mg PO DAILY 03/22/19 Potassium Chloride [Klor-Con M10] 10 mg PO DAILY 03/22/19 Rivaroxaban [Xarelto -] 20 mg PO DAILY 03/22/19 Rosuvastatin Calcium 10 mg PO DAILY 03/22/19 Current Medications Acetaminophen (Tylenol -) 650 mg PO Q4H PRN PRN Reason: PAIN OR FEVER Albuterol Sulfate (Ventolin 0.083% Nebulizer Soln -) 1 amp NEB Q6H PRN PRN Reason: SHORT OF BREATH/WHEEZING Allopurinol (Zyloprim -) 100 mg PO BID [facility] Last Admin: 03/23/19 10:30 Dose: 100 mg Amiodarone HCl (Cordarone -) 200 mg PO DAILY [facility] Last Admin: 03/23/19 10:25 Dose: 200 mg Benzocaine/Menthol (Cepacol Lozenge -) 1 each MM PRN PRN PRN Reason: SORE THROAT Cyanocobalamin (Vitamin B12 -) 1,000 mcg PO DAILY [facility] Last Admin: 03/23/19 10:25 Dose: 1,000 mcg Doxazosin Mesylate (Cardura -) 2 mg PO DAILY [facility] Last Admin: 03/23/19 10:29 Dose: 2 mg Ergocalciferol (Drisdol -) 50,000 unit PO Q7D@1000 [facility] Last Admin: 03/23/19 10:29 Dose: 50,000 unit Folic Acid (Folic Acid -) 1 mg PO DAILY [facility] Last Admin: 03/23/19 10:26 Dose: 1 mg Furosemide (Lasix -) 20 mg PO DAILY [facility] Last Admin: 03/23/19 10:25 Dose: 20 mg Guaifenesin (Robitussin Dm -) 10 ml PO Q4H PRN PRN Reason: COUGH Ceftriaxone Sodium 2 gm/ (Dextrose) 100 mls @ 100 mls/hr IVPB DAILY [facility]; Protocol Last Admin: 03/23/19 13:20 Dose: 100 mls/hr Clindamycin Phosphate (Cleocin 600 Mg Premix Ivpb -) 600 mg in 50 mls @ 100 mls /hr IVPB Q8H-IV [facility]; Protocol Last Admin: 03/23/19 13:21 Dose: 100 mls/hr Levothyroxine Sodium (Synthroid -) 50 mcg PO DAILY@0700 [facility] Last Admin: 03/23/19 08:16 Dose: 50 mcg Metoprolol Succinate (Toprol Xl -) 200 mg PO DAILY [facility] Last Admin: 03/23/19 10:26 Dose: 200 mg Potassium Chloride (K-Dur -) 10 meq PO DAILY [facility] Last Admin: 03/23/19 10:25 Dose: 10 meq Rivaroxaban (Xarelto) 20 mg PO DAILY [facility] Last Admin: 03/23/19 10:27 Dose: 20 mg Rosuvastatin Calcium (Crestor -) 10 mg PO DAILY [facility] Last Admin: 03/23/19 10:25 Dose: 10 mg Assessment/Plan: Pt is a 68 yo f with PMHx Uterine ca (s/p THBO w/ radiation, with kidney mets), afib on xarelto, HTN, Anemia, gout, hypothyroidism, DM presenting from home with 3 days hx of worsening SOB. Uterine ca (s/p THBO w/ radiation, with kidney mets), afib on xarelto, HTN, Anemia, gout, hypothyroidism, DM worsening SOB Possible symptomatic anemia Possible post obstructive PNA MADHAVI nodule LL consolidation Possible liver mets Penicilin allergy-rash Rash on nose Plan: Possible post obstructive PNA PSI-96, risk class IV, 8.2-9.3% Sputum cx Legionella AG Bcx- pending Ceftriaxone 2g daily- will monitor (allergy to pen-rash) Clindamycin 600mg Q6H D/W Dr Jamari [facility] PGY 3 Visit type - Emergency Visit Emergency Visit: Yes ED Registration Date: 03/22/19 Care time: The patient presented to the Emergency Department on the above date and was hospitalized for further evaluation of their emergent condition. - New Patient This patient is new to me today: Yes Date on this admission: 03/23/19 - Critical Care Critical Care patient: No ATTENDING PHYSICIAN STATEMENT I saw and evaluated the patient. I reviewed the resident's note and discussed the case with the resident. I agree with the resident's findings and plan as documented. SUBJECTIVE: OBJECTIVE: ASSESSMENT AND PLAN:
[2019-03-23] MEDS ORDERED: FUROSEMIDE 40 MG/4 ML INJECTABLE VIAL IVPUSH ONE (18:31)
[2019-03-23] MEDS: ALBUTEROL SO4 0.083% IH SOL 2.5 MG/3 ML VIAL.NEB. NEB PRN (20:00)
--- NOTE | 2019-03-23 20:58 | PN ---
Teaching Attending Note Name of Resident: Shankar Boothe ATTENDING PHYSICIAN STATEMENT I saw and evaluated the patient. I reviewed the resident's note and discussed the case with the resident. I agree with the resident's findings and plan as documented. SUBJECTIVE: Patient seen and examined Hx of uterine Ca - s/p TAHBSO followed by pelvic RT. Presents with SOB , left sided chest pain. CT with pleural based MADHAVI nodule and left lung mass vs consolidation Patient is tachyneic at rest on oxygen FH- mother with breast ca, father with throat ca. PMH - atrial fib HBP, anemia - requiring transfusion in past Last Vital Signs Temp Pulse Resp BP Pulse Ox 99.3 F 60 18 114/51 L 97 03/23/19 15:00 03/23/19 15:00 03/23/19 15:00 03/23/19 15:00 03/22/19 22:50 HEENT: SUKHDE[place], EOM Intact Oropharynx: No thrush, No mucositis Neck: Supple Nodes: Without adenopathy Breasts: Without masses Cor: atrial fib , systolic murmur Lungs:rales LLL Abd: Soft, Normal bowel sounds, No organomegaly Ext:No significant edema Skin: No rashes, Integument intact CBC, BMP 03/23/19 06:45 03/22/19 19:32 Current Medications Generic Name Dose Route Start Last Admin Trade Name Freq PRN Reason Stop Dose Admin Acetaminophen 650 mg 03/22/19 19:01 Tylenol - PO Q4H PRN PAIN OR FEVER Albuterol Sulfate 1 amp 03/22/19 19:01 Ventolin 0.083% Nebulizer Soln - NEB Q6H PRN SHORT OF BREATH/WHEEZING Allopurinol 100 mg 03/22/19 22:00 03/23/19 10:30 Zyloprim - PO 100 mg BID [facility] Administration Amiodarone HCl 200 mg 03/23/19 10:00 03/23/19 10:25 Cordarone - PO 200 mg DAILY [facility] Administration Benzocaine/Menthol 1 each 03/22/19 19:05 Cepacol Lozenge - MM PRN PRN SORE THROAT Cyanocobalamin 1,000 mcg 03/23/19 10:00 03/23/19 10:25 Vitamin B12 - PO 1,000 mcg DAILY [facility] Administration Doxazosin Mesylate 2 mg 03/23/19 10:00 03/23/19 10:29 Cardura - PO 2 mg DAILY [facility] Administration Ergocalciferol 50,000 unit 03/23/19 10:00 03/23/19 10:29 Drisdol - PO 50,000 unit Q7D@1000 [facility] Administration Folic Acid 1 mg 03/23/19 10:00 03/23/19 10:26 Folic Acid - PO 1 mg DAILY [facility] Administration Furosemide 20 mg 03/23/19 10:00 03/23/19 10:25 Lasix - PO 20 mg DAILY [facility] Administration Guaifenesin 10 ml 03/22/19 19:05 Robitussin Dm - PO Q4H PRN COUGH Ceftriaxone Sodium 2 gm/ 100 mls @ 100 mls/hr 03/23/19 12:15 03/23/19 13:20 Dextrose IVPB 100 mls/hr DAILY [facility] Administration Protocol Clindamycin Phosphate 600 mg in 50 mls @ 100 mls/hr 03/23/19 12:00 03/23/19 17:02 Cleocin 600 Mg Premix Ivpb - IVPB 100 mls/hr Q8H-IV [facility] Administration Protocol Levothyroxine Sodium 50 mcg 03/23/19 07:00 03/23/19 08:16 Synthroid - PO 50 mcg DAILY@0700 [facility] Administration Metoprolol Succinate 200 mg 03/23/19 10:00 03/23/19 10:26 Toprol Xl - PO 200 mg DAILY [facility] Administration Potassium Chloride 10 meq 03/23/19 10:00 03/23/19 10:25 K-Dur - PO 10 meq DAILY [facility] Administration Rivaroxaban 20 mg 03/23/19 10:00 03/23/19 10:27 Xarelto PO 20 mg DAILY [facility] Administration Rosuvastatin Calcium 10 mg 03/23/19 10:00 03/23/19 10:25 Crestor - PO 10 mg DAILY [facility] Administration Impression: Endometrial ca--s/p JODY-BSO/RT Pleural based MADHAVI mass Left lung consolidation - mass vs pneumonia Liver lesion Atrial fib A/C Anemia Iron studies compatible with iron deficiency and chronic disease Has mild renal insufficiency Macrocytic anemia despite low Fe++ with normal LFT's, B-12, folate, ( receiving therapy),mild chemical hypothyroidism Plan: Stool guaics antibiotic therapy Will need biopsy of lung in future PET in future would also be useful Needs flow cytometry, retic . Macrocytosis - currently not explained [place] is that care will return to [facility] in future . If not , need details of endometrial ca--? MSI, tissue in future with MSI, PDL-1. and foundation studies OBJECTIVE: ASSESSMENT AND PLAN:
--- NOTE | 2019-03-23 21:17 | PN ---
Teaching Attending Note Name of Resident: Mercy Lyons ATTENDING PHYSICIAN STATEMENT I saw and evaluated the patient. I reviewed the resident's note and discussed the case with the resident. I agree with the resident's findings and plan as documented. SUBJECTIVE: OBJECTIVE: ASSESSMENT AND PLAN: ENDOMETRIAL CA PROBABLE LUNG METS ? POST OBSTRUCTVE PNEUMONIA SOFT TISSUE INFECTION, NOSE PCN ALLERGY AWAIT C/S EMPIRIC CLINDAMYCIN/ CEFTRIAXONE LUNG BX
[2019-03-24] MEDS: CLINDAMYCIN 600MG PREMIX IVPB 600 MG/50 ML BAG IVPB SCH ×3 (02:32→17:21)
[2019-03-24] MEDS: LEVOTHYROXINE NA 50 MCG TABLET (FP) PO SCH ×2 (06:05→11:55)
[2019-03-24] MEDS: ALBUTEROL SO4 0.083% IH SOL 2.5 MG/3 ML VIAL.NEB. NEB PRN ×2 (06:11→19:57)
[2019-03-24 08:09] LABS: HEMATOCRIT 23.6 % (32.4-45.2); MCH 34.7 pg (25.7-33.7); MCHC 33.9 g/dl (32.0-36.0); MEAN CELL VOLUME 102.5 fl (80-96); MEAN PLT VOLUME 7.1 fl (7.5-11.1); PLATELET COUNT 325 K/MM3 (134-434); RBC 2.31 M/mm3 (3.60-5.2); RDW 20.1 % (11.6-15.6); WHITE BLOOD COUNT 7.4 K/mm3 (4.0-10.0)
[2019-03-24 08:33] LABS: ALBUMIN 2.7 g/dl (3.4-5.0); BILIRUBIN,TOTAL 0.9 mg/dL (0.2-1); BLOOD UREA NITROGEN 20.7 mg/dL (7-18); CALCIUM 7.8 mg/dL (8.5-10.1); CREATININE 1.4 mg/dL (0.55-1.3); POTASSIUM 3.6 mmol/L (3.5-5.1); TOT PROT 6.6 g/dl (6.4-8.2)
[2019-03-24] MEDS ORDERED: DEXTROSE 5%-WATER 100 ML IVPB ONE (09:41)
--- NOTE | 2019-03-24 10:02 | PN ---
Progress Note, Physician - Current Medication List Current Medications: Active Medications Acetaminophen (Tylenol -) 650 mg PO Q4H PRN PRN Reason: PAIN OR FEVER Last Admin: 03/23/19 21:36 Dose: 650 mg Albuterol Sulfate (Ventolin 0.083% Nebulizer Soln -) 1 amp NEB Q6H PRN PRN Reason: SHORT OF BREATH/WHEEZING Last Admin: 03/24/19 06:11 Dose: 1 amp Allopurinol (Zyloprim -) 100 mg PO BID [facility] Last Admin: 03/23/19 21:36 Dose: 100 mg Amiodarone HCl (Cordarone -) 200 mg PO DAILY [facility] Last Admin: 03/23/19 10:25 Dose: 200 mg Benzocaine/Menthol (Cepacol Lozenge -) 1 each MM PRN PRN PRN Reason: SORE THROAT Cyanocobalamin (Vitamin B12 -) 1,000 mcg PO DAILY [facility] Last Admin: 03/23/19 10:25 Dose: 1,000 mcg Doxazosin Mesylate (Cardura -) 2 mg PO DAILY [facility] Last Admin: 03/23/19 10:29 Dose: 2 mg Ergocalciferol (Drisdol -) 50,000 unit PO Q7D@1000 [facility] Last Admin: 03/23/19 10:29 Dose: 50,000 unit Folic Acid (Folic Acid -) 1 mg PO DAILY [facility] Last Admin: 03/23/19 10:26 Dose: 1 mg Furosemide (Lasix -) 20 mg PO DAILY [facility] Last Admin: 03/23/19 10:25 Dose: 20 mg Guaifenesin (Robitussin Dm -) 10 ml PO Q4H PRN PRN Reason: COUGH Ceftriaxone Sodium 2 gm/ (Dextrose) 100 mls @ 100 mls/hr IVPB DAILY [facility]; Protocol Last Admin: 03/23/19 13:20 Dose: 100 mls/hr Clindamycin Phosphate (Cleocin 600 Mg Premix Ivpb -) 600 mg in 50 mls @ 100 mls /hr IVPB Q8H-IV [facility]; Protocol Last Admin: 03/24/19 02:32 Dose: 100 mls/hr Levothyroxine Sodium (Synthroid -) 50 mcg PO DAILY@0700 [facility] Last Admin: 03/24/19 06:05 Dose: Not Given Metoprolol Succinate (Toprol Xl -) 200 mg PO DAILY [facility] Last Admin: 03/23/19 10:26 Dose: 200 mg Potassium Chloride (K-Dur -) 10 meq PO DAILY [facility] Last Admin: 03/23/19 10:25 Dose: 10 meq Rivaroxaban (Xarelto) 20 mg PO DAILY [facility] Last Admin: 03/23/19 10:27 Dose: 20 mg Rosuvastatin Calcium (Crestor -) 10 mg PO DAILY [facility] Last Admin: 03/23/19 10:25 Dose: 10 mg - Objective Vital Signs: Vital Signs Temperature 98.1 F 03/24/19 06:33 Pulse Rate 64 03/24/19 06:33 Respiratory Rate 20 03/24/19 08:52 Blood Pressure 127/62 03/24/19 06:33 O2 Sat by Pulse Oximetry (%) 95 03/24/19 08:52 Labs: CBC, BMP 03/24/19 07:33 03/24/19 07:33 INR, PTT INR 3.80 (0.83-1.09) H 03/22/19 10:39 Assessment/Plan - Problems (1) Afib Assessment/Plan: -Xarelto--hold--cardio -Amiodarone for rate control Code(s): I48.91 - UNSPECIFIED ATRIAL FIBRILLATION (2) HTN (hypertension) Assessment/Plan: -low Na diet -Cardura Code(s): I10 - ESSENTIAL (PRIMARY) HYPERTENSION (3) Uterine cancer Assessment/Plan: -Oncology consult -last RT 1 month ago Code(s): C55 - MALIGNANT NEOPLASM OF UTERUS, PART UNSPECIFIED (4) SOB (shortness of breath) Assessment/Plan: -Pulm Consult -Bronchodilators -O2 via NC -Chest CT scan shows 2.2 x 2.1cm subpleural mass MADHAVI anterolaterally, LLL mass measuring 4.4 x 7.1cm, prominence of interstitial markings within the left base suggesting fluid or lymphangitic spread, 5.8mm nodule noted within the lateral segment of the right middle lobe, small effusion on the left, trace effusion on the right, left hilar adenopathy measuring 1.8cm, pretracheal lymph node measuring 5mm, 1.8 x 1.8 low-density lesion segment IVb of the liver is noted -Pet Scan Code(s): R06.02 - SHORTNESS OF BREATH (5) Pneumonia Assessment/Plan: -Pulm Consult -Bronchodilators -O2 via NC -Chest CT scan shows 2.2 x 2.1cm subpleural mass MADHAVI anterolaterally, LLL mass measuring 4.4 x 7.1cm, prominence of interstitial markings within the left base suggesting fluid or lymphangitic spread, 5.8mm nodule noted within the lateral segment of the right middle lobe, small effusion on the left, trace effusion on the right, left hilar adenopathy measuring 1.8cm, pretracheal lymph node measuring 5mm, 1.8 x 1.8 low-density lesion segment IVb of the liver is noted -ID consult -no leukocytosis -low grade temps -Azithromycin, Ertapenem -BC pending -Urine Legiionella pending Code(s): J18.9 - PNEUMONIA, UNSPECIFIED ORGANISM Qualifiers: Pneumonia type: due to unspecified organism Laterality: left Lung location: lower lobe of lung Qualified Code(s): J18.1 - Lobar pneumonia, unspecified organism (6) HLD (hyperlipidemia) Assessment/Plan: -Rosuvastatin Code(s): E78.5 - HYPERLIPIDEMIA, UNSPECIFIED (7) Anemia Assessment/Plan: -Hg 7.0 -will transfuse 1U PRBC -monitor Hg daily -transfuse for Hg <7.0 -Stool OB -iron panel Code(s): D64.9 - ANEMIA, UNSPECIFIED (8) Liver lesion Assessment/Plan: -GI consult -Abdominal US Code(s): K76.9 - LIVER DISEASE, UNSPECIFIED
--- NOTE | 2019-03-24 10:52 | PN ---
Progress Note (short form) - Note Progress Note: PULMONARY Feels better today. Less short of breath and chest pain resolved. Vital Signs Period Temp Pulse Resp BP Sys/Kenney Pulse Ox Last 24 Hr 98.1 F-100.0 F 60-78 13-24 114-153/46-64 95-97 Gen: less tachypneic Heart: RRR Lung: decreased breath sounds at the bases Abd: soft, nontender Ext: no edema CBC, BMP 03/24/19 07:33 03/24/19 07:33 Active Medications Acetaminophen (Tylenol -) 650 mg PO Q4H PRN PRN Reason: PAIN OR FEVER Last Admin: 03/23/19 21:36 Dose: 650 mg Albuterol Sulfate (Ventolin 0.083% Nebulizer Soln -) 1 amp NEB Q6H PRN PRN Reason: SHORT OF BREATH/WHEEZING Last Admin: 03/24/19 06:11 Dose: 1 amp Allopurinol (Zyloprim -) 100 mg PO BID [facility] Last Admin: 03/23/19 21:36 Dose: 100 mg Amiodarone HCl (Cordarone -) 200 mg PO DAILY [facility] Last Admin: 03/23/19 10:25 Dose: 200 mg Benzocaine/Menthol (Cepacol Lozenge -) 1 each MM PRN PRN PRN Reason: SORE THROAT Cyanocobalamin (Vitamin B12 -) 1,000 mcg PO DAILY [facility] Last Admin: 03/23/19 10:25 Dose: 1,000 mcg Doxazosin Mesylate (Cardura -) 2 mg PO DAILY [facility] Last Admin: 03/23/19 10:29 Dose: 2 mg Ergocalciferol (Drisdol -) 50,000 unit PO Q7D@1000 [facility] Last Admin: 03/23/19 10:29 Dose: 50,000 unit Folic Acid (Folic Acid -) 1 mg PO DAILY [facility] Last Admin: 03/23/19 10:26 Dose: 1 mg Furosemide (Lasix -) 20 mg PO DAILY [facility] Last Admin: 03/23/19 10:25 Dose: 20 mg Guaifenesin (Robitussin Dm -) 10 ml PO Q4H PRN PRN Reason: COUGH Ceftriaxone Sodium 2 gm/ (Dextrose) 100 mls @ 100 mls/hr IVPB DAILY [facility]; Protocol Last Admin: 03/23/19 13:20 Dose: 100 mls/hr Clindamycin Phosphate (Cleocin 600 Mg Premix Ivpb -) 600 mg in 50 mls @ 100 mls /hr IVPB Q8H-IV [facility]; Protocol Last Admin: 03/24/19 02:32 Dose: 100 mls/hr Levothyroxine Sodium (Synthroid -) 50 mcg PO DAILY@0700 [facility] Last Admin: 03/24/19 06:05 Dose: Not Given Metoprolol Succinate (Toprol Xl -) 200 mg PO DAILY [facility] Last Admin: 03/23/19 10:26 Dose: 200 mg Potassium Chloride (K-Dur -) 10 meq PO DAILY [facility] Last Admin: 03/23/19 10:25 Dose: 10 meq Rivaroxaban (Xarelto) 20 mg PO DAILY [facility] Last Admin: 03/23/19 10:27 Dose: 20 mg Rosuvastatin Calcium (Crestor -) 10 mg PO DAILY [facility] Last Admin: 03/23/19 10:25 Dose: 10 mg A/P Uterine Ca s/p Hysterectomy/RT Lung Nodule/Mass/Liver Lesion suspect metastatic disease r/o Pneumonia Atrial Fibrillation HTN Hyperlipidemia - continue antibiotics - obtain results of last CT A/P - repeat CT chest in 3-4 weeks to reassess lung nodules/mass - will need biopsy of lung mass via CT guided needle biopsy or bronchoscopy if findings persist - DVT prophylaxis Problem List - Problems (1) SOB (shortness of breath) Code(s): R06.02 - SHORTNESS OF BREATH (2) Afib Code(s): I48.91 - UNSPECIFIED ATRIAL FIBRILLATION (3) Anemia Code(s): D64.9 - ANEMIA, UNSPECIFIED (4) HLD (hyperlipidemia) Code(s): E78.5 - HYPERLIPIDEMIA, UNSPECIFIED (5) HTN (hypertension) Code(s): I10 - ESSENTIAL (PRIMARY) HYPERTENSION (6) Liver lesion Code(s): K76.9 - LIVER DISEASE, UNSPECIFIED (7) Pneumonia Code(s): J18.9 - PNEUMONIA, UNSPECIFIED ORGANISM Qualifiers: Pneumonia type: due to unspecified organism Laterality: left Lung location: lower lobe of lung Qualified Code(s): J18.1 - Lobar pneumonia, unspecified organism (8) Uterine cancer Code(s): C55 - MALIGNANT NEOPLASM OF UTERUS, PART UNSPECIFIED
[2019-03-24] MEDS: CYANOCOBALAMIN 1,000 MCG TABLET (FP) PO SCH (11:42)
[2019-03-24] MEDS: POTASSIUM CHLORIDE TABS 10 MEQ TABLET.ER (FP) PO SCH (11:42)
[2019-03-24] MEDS: ROSUVASTATIN CA 10 MG TABLET (FP) PO SCH (11:43)
[2019-03-24] MEDS: FUROSEMIDE 20 MG TABLET (FP) PO SCH (11:43)
[2019-03-24] MEDS: ALLOPURINOL 100 MG TABLET (FP) PO SCH ×2 (11:44→21:01)
[2019-03-24] MEDS: RIVAROXABAN 20 MG TABLET PO SCH (11:44)
[2019-03-24] MEDS: AMIODARONE HCL 200 MG TABLET (FP) PO SCH (11:44)
[2019-03-24] MEDS: FOLIC ACID 1 MG TABLET (FP) PO SCH (11:44)
[2019-03-24] MEDS ORDERED: PT OWN MED DRAWER 7, Y5N ONE (11:54)
--- NOTE | 2019-03-24 11:55 | CON.CARD ---
Consult Consult Specialty:: Cardiology Referred by:: Dr. Zhou Reason for Consultation:: Afib - History of Present Illness Chief Complaint: chest pain, sob. History of Present Illness: 68 yo f with PMHx Uterine ca (s/p THBO w/ radiation, with kidney mets), afib on xarelto, HTN, Anemia, gout, hypothyroidism, DM admitted with 3 days hx of worsening SOB. Noted to be anemic in PMD's office. Diagnosed with Pafib 10/2018 prior to hysterectomy for severe uterine bleeding. started on amiodarone at that time with a plan for 6 months of amio. started on xarelto after hysterectomy. denies chest pain, palpitations, pnd, orthopnea, LE edema. - History Source History Provided By: Patient, Family Member Limitations to Obtaining History: No Limitations - Past Medical History Cardio/Vascular: Yes: AFIB, HTN, Hyperlipdemia Renal/: Yes: Other (Kidney Metastasis) Endocrine: Yes: Hypothyroidism - Past Surgical History Past Surgical History: Yes: Hysterectomy - Alcohol/Substance Use Hx Alcohol Use: Yes Number of Drinks Daily: 2 - Smoking History Smoking history: Former smoker Have you smoked in the past 12 months: No Aproximately how many cigarettes per day: 20 If you are a former smoker, when did you quit?: 28 years ago - Social History Usual Living Arrangement: With Spouse ADL: Independent History of Recent Travel: No Home Medications - Allergies Allergies/Adverse Reactions: Allergies Allergy/AdvReac Type Severity Reaction Status Date / Time Penicillins Allergy Verified 03/22/19 09:58 - Home Medications Home Medications: Ambulatory Orders Allopurinol [Zyloprim -] 100 mg PO BID 03/22/19 Amiodarone HCl 200 mg PO DAILY 03/22/19 Cyanocobalamin (Vitamin B-12) [Vitamin B-12] 1,000 mcg PO DAILY 03/22/19 Doxazosin Mesylate 2 mg PO DAILY 03/22/19 Ergocalciferol (Vitamin D2) [Vitamin D2] 1 cap PO WEEKLY 03/22/19 Ergocalciferol (Vitamin D2) [Vitamin D2] 50,000 unit PO WEEKLY 03/22/19 Folic Acid - 1 mg PO DAILY 03/22/19 Furosemide 20 mg PO DAILY 03/22/19 Hydralazine HCl 100 mg PO TID 03/22/19 Levothyroxine [Synthroid -] 50 mcg PO DAILY 03/22/19 Metoprolol Succinate 200 mg PO DAILY 03/22/19 Mil[place]-3/Dha/Epa/Fish Oil [[place]aca 3 500 Softgel] 350 mg PO DAILY 03/22/19 Potassium Chloride [Klor-Con M10] 10 mg PO DAILY 03/22/19 Rivaroxaban [Xarelto -] 20 mg PO DAILY 03/22/19 Rosuvastatin Calcium 10 mg PO DAILY 03/22/19 Review of Systems - Review of Systems Constitutional: reports: Malaise, Weakness. denies: No Symptoms, Chills, Diaphoresis, Fever, Lethargy, Loss of Appetite, Night Sweats, Unintentional Wgt. Loss, Other Eyes: denies: No Symptoms, Blind Spots, Blurred Vision, Double Vision, Eye Pain , Floaters, Photophobia, Recent Change in Vision, Other HENT: denies: No Symptoms, Difficult Swallowing, Ear Discharge, Ear Pain, Epistaxis, Gingival Bleeding, Hearing Loss, Mouth Swelling, Nasal Congestion, Ocular Prosthesis, Throat Pain, Toothache, Ringing in Ears, Other Neck: denies: No Symptoms, Decreased ROM, Lumps, Pain on Movement, Stiffness, Swollen Glands, Tenderness, Other Cardiovascular: denies: No Symptoms, Chest Pain, Edema, Palpitations, Shortness of Breath, Other Respiratory: reports: Cough, SOB. denies: No Symptoms, Exercise Intolerance, Hemoptysis, Orthopnea, PND, Snoring, SOB on Exertion, Wheezing, Other Gastrointestinal: denies: No Symptoms, Abdominal Pain, Bloating, Constipation, Diarrhea, Dysphagia, Indigestion, Melena, Nausea, Rectal Bleeding, Vomiting, Vomiting Blood, Other Genitourinary: denies: No Symptoms, Burning, Discharge, Dysuria, Flank Pain, Frequency, Hematuria, Incontinence, Lesions, Menses, Pain, Testicular Mass, Testicular Pain, Testicular Swelling, Urgency, Vaginal Bleeding, Other Breasts: denies: No Symptoms Reported, See HPI, Breast Implants, Discharge from Nipple, Lumps, Pain, Skin Changes, Other Musculoskeletal: denies: No Symptoms, Back Pain, Crepitus, Decreased ROM, Extremity Pain, Joint Pain, Joint Swelling, Muscle Pain, Muscle Cramps, Muscle Weakness, Other Integumentary: denies: No Symptoms, Blister, Bruising, Change in Color, Eczema, Erythema, Incision, Lesions, Lump, Pallor, Pruritis, Rash, Wound, Other Neurological: denies: No Symptoms, Change in LOC, Change in Speech, Confusion, Dizziness, Headache, Incoordination, Numbness, Parasthesia, Pre-Existing Deficit , Seizure, Syncope, Tremors, Unsteady Gait, Weakness, Other Endocrine: denies: No Symptoms, Excessive Sweating, Flushing, Increased Hunger, Increased Thirst, Intolerance to Cold, Intolerance to Heat, Unexplained Weight Gain, Unexplained Weight Loss, Other Hematology/Lymphatic: denies: No Symptoms, Easily Bruised, Excessive Bleeding, Swollen Glands, Other Psychiatric: denies: No Symptoms, Altered Sleep Pattern, Anxiety, Depression, Hallucinations, Panic, Paranoia, Suicidal, Other - Risk Factors Known Risk Factors: Yes: Hypercholesterolemia, Hypertension Vital Signs: Vital Signs Temperature 98.7 F 03/24/19 10:41 Pulse Rate 78 03/24/19 10:41 Respiratory Rate 13 03/24/19 10:41 Blood Pressure 144/62 03/24/19 10:41 O2 Sat by Pulse Oximetry (%) 97 03/24/19 10:43 Constitutional: Yes: No Distress, Calm Eyes: Yes: Conjunctiva Clear, EOM Intact HENT: Yes: Atraumatic, Normocephalic Neck: Yes: Supple, Trachea Midline Respiratory: Yes: Regular, Rhonchi Gastrointestinal: Yes: Normal Bowel Sounds, Soft. No: Distention, Tenderness Cardiovascular: Yes: Regular Rate and Rhythm. No: Bradycardia, Tachycardia, Pulse Irregular, Gallop, Rub, Varicosities JVD: No Carotid Bruit: No PMI: Non-Displaced Heart Sounds: Yes: S1, S2. No: Split S2, S3, S4, Clicks, Gallop, Rub, Bruit Murmur: No: Systolic Murmur, Diastolic Murmur Musculoskeletal: Yes: WNL Extremities: Yes: WNL Edema: No Peripheral Pulses WNL: Yes Peripheral Pulses: 2+ Left Doralis Pedis, 2+ Right Dorsalis Pedis Neurological: Yes: Alert, Oriented Psychiatric: Yes: Alert, Oriented - Other Data Labs, Other Data: CBC, BMP 03/24/19 07:33 03/24/19 07:33 INR, PTT INR 3.80 (0.83-1.09) H 03/22/19 10:39 nsr 80bpm, pvcs, apcs Echo: Report Reviewed Imaging - Results Chest X-ray: Report Reviewed, Image Reviewed EKG: Report Reviewed, Image Reviewed Other: Report Reviewed, Image Reviewed Assessment/Plan 68 yo f with PMHx Uterine ca (s/p THBO w/ radiation, with kidney mets), afib on xarelto, HTN, Anemia, gout, hypothyroidism, DM admitted with 3 days hx of worsening SOB. Noted to be anemic in PMD's office. Diagnosed with Pafib 10/2018 prior to hysterectomy for severe uterine bleeding. started on amiodarone at that time with a plan for 6 months of amio. started on xarelto after hysterectomy. denies chest pain, palpitations, pnd, orthopnea, LE edema. Afib-known Pafib dx 10/2018 prior to hysterectomy -had significant uterine bleeding at that time and was not started on AC until after hysterectomy when xarelto was started -started on amiodarone 10/2018 with a plan for a 6 month treatment course -currently in NSR -anemic but no known current bleeding source identified -If concern for bleeding as source of anemia then would hold Xarelto. If from other sources it can be continued. 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 Newton as outpatient. No other additional inpatient cardiac work up is needed at this time. Will see as needed. Please call with any further questions.
[2019-03-24] MEDS: DOXAZOSIN MESYLATE 2 MG TABLET (FP) PO SCH ×2 (12:58→12:59)
[2019-03-24] MEDS: CEFTRIAXONE 2 GM in DEXTROSE 5%-WATER 100 ML IVPB SCH (12:59)
--- NOTE | 2019-03-24 13:58 | PN ---
Progress Note (short form) - Note Progress Note: Hematology and oncology follow-up Subjective: Patient seen and examined at bedside. She states that her breathing is improved today. She states it is a little easier on venturi mask, but wants NC as the mask is uncomfortable. Objective: Vital Signs Temperature 98.7 F 03/24/19 10:41 Pulse Rate 78 03/24/19 10:41 Respiratory Rate 13 03/24/19 10:41 Blood Pressure 144/62 03/24/19 10:41 O2 Sat by Pulse Oximetry (%) 97 03/24/19 10:43 Physical Exam: General: Patient well appearing and sitting up in bed. Lungs: Crackles heard at the left base Heart: regular rate a rhythm, s1, s2 heard. No murmurs, gallops or rubs auscultated Abdomen: soft, nontender, nondistended, bowel sounds heard CBC, BMP 03/24/19 07:33 03/24/19 07:33 Assessment and plan: The patient is a 68 yo f w/ PMH Uterine ca (s/p total hysterectomy and b/l oophrectomy w/ radiation), afib on xeralto, HTN, Anemia who comes into the ED c/ o progressively worsening SOB and dyspnea on exertion. She was found to have several masses and lymphadenopathy in the left lung on CT chest. She has been admitted for the treatment of pneumonia and further evaluation of these lung masses. #Shortness of breath, dyspnea on exertion likely secondary to post obstructive versus community acquired pneumonia. -Antibiotics per ID -blood cultures pending -improved today #New masses, nodules and lymphadenopathy in the lung rule out metastatic disease. -Patient follows at [facility] for the majority of her medical care (see HPI) -will contact Dr. German, who has treated her in the past, for more information regarding her disease staging and history. -Patient may elect to follow-up with her oncologists at [place]. -discussed the possibility of biopsy with patient; she states that she wants to think about whether she will have this procedure here or at [place]. Will continue to discuss. -Patient would also benefit from PET in the future #Anemia possibly secondary chronic disease versus iron deficiency -hemoglobin 8.0 today -iron found to be low this admission. -Last colonoscopy was six years ago and was unremarkable -patient had recent endoscopy which was unremarkable -status post 1 units PRBC yesterday -monitor daily CBCs -Hb transfusion goal should be 8 given cardiac comorbidities. <Shankar Boothe - Last Filed: 03/24/19 18:59> Teaching Attending Note Name of Resident: Shankar Boothe ATTENDING PHYSICIAN STATEMENT I saw and evaluated the patient. I reviewed the resident's note and discussed the case with the resident. I agree with the resident's findings and plan as documented. <Ruben Rocha - Last Filed: 03/24/19 20:57>
--- NOTE | 2019-03-24 14:03 | CONSULT ---
Consult - text type - Consultation Consultation Note: Renal consult for LUIS vs. CKD This is a 68 year old woman with history of uterine Ca with kidney meds s/p JODY on radiation tx, Afib on A/C, hypertension and hyperlipidemia who presented from home with SOB and found to have pleural lung mass/consolidation and noted to have Cr of 1.6-1.4. Denies any history of CKD. Has a metastatic lesion on her kidney. No radiation therapy was given to the kidney. Reprots good oral intake at home. Denies any N/V/D. No dysuria, frequency or urgency. s/p CT scan last week of the Abd/Pelvis, unclear if contrast was given. PMhx: As above Allergies: NKDA Family Hx: NC Social Hx; No T/A/D ROS: as per HPI Home Medications Medication Instructions Recorded Allopurinol [Zyloprim -] 100 mg PO BID 03/22/19 Amiodarone HCl 200 mg PO DAILY 03/22/19 Cyanocobalamin (Vitamin B-12) 1,000 mcg PO DAILY 03/22/19 [Vitamin B-12] Doxazosin Mesylate 2 mg PO DAILY 03/22/19 Ergocalciferol (Vitamin D2) 1 cap PO WEEKLY 03/22/19 [Vitamin D2] Ergocalciferol (Vitamin D2) 50,000 unit PO WEEKLY 03/22/19 [Vitamin D2] Folic Acid - 1 mg PO DAILY 03/22/19 Furosemide 20 mg PO DAILY 03/22/19 Hydralazine HCl 100 mg PO TID 03/22/19 Levothyroxine [Synthroid -] 50 mcg PO DAILY 03/22/19 Metoprolol Succinate 200 mg PO DAILY 03/22/19 [place]-3/Dha/Epa/Fish Oil [[place] 3 350 mg PO DAILY 03/22/19 500 Softgel] Potassium Chloride [Klor-Con M10] 10 mg PO DAILY 03/22/19 Rivaroxaban [Xarelto -] 20 mg PO DAILY 03/22/19 Rosuvastatin Calcium 10 mg PO DAILY 03/22/19 Vital Signs Temperature 98.7 F 03/24/19 10:41 Pulse Rate 78 03/24/19 10:41 Respiratory Rate 13 03/24/19 10:41 Blood Pressure 144/62 03/24/19 10:41 O2 Sat by Pulse Oximetry (%) 97 03/24/19 10:43 Intake & Output 03/21/19 03/22/19 03/23/19 03/24/19 23:59 23:59 23:59 23:59 Intake Total 1050 50 Balance 1050 50 Weight 90.804 kg NAD awake and alert neck supple no JVD Dec BS at lung bases, no rales soft NT/ND no LE edema CBC, BMP 03/24/19 07:33 03/24/19 07:33 Current Medications Acetaminophen (Tylenol -) 650 mg PO Q4H PRN PRN Reason: PAIN OR FEVER Last Admin: 03/23/19 21:36 Dose: 650 mg Albuterol Sulfate (Ventolin 0.083% Nebulizer Soln -) 1 amp NEB Q6H PRN PRN Reason: SHORT OF BREATH/WHEEZING Last Admin: 03/24/19 06:11 Dose: 1 amp Allopurinol (Zyloprim -) 100 mg PO BID [facility] Last Admin: 03/24/19 11:44 Dose: 100 mg Amiodarone HCl (Cordarone -) 200 mg PO DAILY [facility] Last Admin: 03/24/19 11:44 Dose: 200 mg Benzocaine/Menthol (Cepacol Lozenge -) 1 each MM PRN PRN PRN Reason: SORE THROAT Cyanocobalamin (Vitamin B12 -) 1,000 mcg PO DAILY [facility] Last Admin: 03/24/19 11:42 Dose: 1,000 mcg Doxazosin Mesylate (Cardura -) 2 mg PO DAILY [facility] Last Admin: 03/24/19 12:59 Dose: 2 mg Ergocalciferol (Drisdol -) 50,000 unit PO Q7D@1000 [facility] Last Admin: 03/23/19 10:29 Dose: 50,000 unit Folic Acid (Folic Acid -) 1 mg PO DAILY [facility] Last Admin: 03/24/19 11:44 Dose: 1 mg Furosemide (Lasix -) 20 mg PO DAILY [facility] Last Admin: 03/24/19 11:43 Dose: 20 mg Guaifenesin (Robitussin Dm -) 10 ml PO Q4H PRN PRN Reason: COUGH Ceftriaxone Sodium 2 gm/ (Dextrose) 100 mls @ 100 mls/hr IVPB DAILY [facility]; Protocol Last Admin: 03/24/19 12:59 Dose: 100 mls/hr Clindamycin Phosphate (Cleocin 600 Mg Premix Ivpb -) 600 mg in 50 mls @ 100 mls /hr IVPB Q8H-IV [facility]; Protocol Last Admin: 03/24/19 11:46 Dose: 100 mls/hr Levothyroxine Sodium (Synthroid -) 50 mcg PO DAILY@0700 [facility] Last Admin: 03/24/19 11:55 Dose: 50 mcg Metoprolol Succinate (Toprol Xl -) 200 mg PO DAILY [facility] Last Admin: 03/24/19 11:44 Dose: 200 mg Potassium Chloride (K-Dur -) 10 meq PO DAILY [facility] Last Admin: 03/24/19 11:42 Dose: 10 meq Rivaroxaban (Xarelto) 20 mg PO DAILY [facility] Last Admin: 03/24/19 11:44 Dose: 20 mg Rosuvastatin Calcium (Crestor -) 10 mg PO DAILY [facility] Last Admin: 03/24/19 11:43 Dose: 10 mg 68 year old woman with history of uterine Ca with kidney meds s/p JODY on radiation tx, Afib on A/C, hypertension and hyperlipidemia who presented from home with SOB and found to have pleural lung mass/consolidation and noted to have Cr of 1.6-1.4. 1. LUIS vs CKD 2. Pleural mass/consolidation 3. Uterine Ca with metastatic disease 4. Iron deficiency anemia 5. Hypertension Check urine studies for FeUra, UPCR, Urine Eosinphils Will try to obtain outpatient CT scan hold diuretics for now Give trial of IVF x 12 hours continue antibiotics as per primary team unlikely anemia is due to CKD alone Oncology follow up Thank you Juan Francisco Neely DO
[2019-03-24] MEDS: SODIUM CHLORIDE 1,000 ML IV SCH (14:21)
--- NOTE | 2019-03-24 17:59 | PN ---
Progress Note (short form) - Note Progress Note: Radiation Oncology Pt seen, chart films reviewed, dictated consult to follow. 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 She completed postop pelvic external beam RT (45Gy) on 02/20/19 with expected fatigue and loose BM, scheduled for office follow up tomorrow. She has a history of 2cm right renal lower pole mass which was being followed by her urologist, she had repeat CT scan at [facility] last month. Admitted to [facility] for SOB and pleuritic chest pain. Denies cough or hemoptysis but endorses fatigue. On antibiotics for presumed pneumonia. Chest CT reviewed with radiology, there is postobstructive left lower lung consolidation/mass and upper lobe mass suspicious for malignancy. Would consider CT biopsy to rule out a lung primary malignancy (former smoker) or metastasis (endometrial vs renal). Will need to review outside abdominal CT or repeat study. Continue present respiratory and ID mgt. Discussed with pt, , sister. They will further consider option to biopsy vs follow up CT scan.
--- NOTE | 2019-03-24 18:28 | PN ---
Progress Note (short form) - Note Progress Note: Patient seen, after returningGen: from [facility] [place]. Had increased dyspnea yesterday transitioning from NC to venturimask. Short of breath after transfer from wheel chair. Had low grade fever 100.0 overnight. Now with slight sputm production, no chest pain. Nose erythema and swelling improving, Facial redness improving. Vital Signs Temp 98.2 F 03/24/19 14:00 Pulse 67 03/24/19 14:00 Resp 20 03/24/19 14:00 BP 107/57 L 03/24/19 14:00 Pulse Ox 97 03/24/19 10:43 Intake & Output 03/23/19 03/24/19 03/24/19 23:59 11:59 23:59 Intake Total 1050 50 650 Balance 1050 50 650 Intake: IV 250 0 Saline lock 250 0 IVPB 450 50 150 Oral 500 Packed Cells 350 Other: Voiding Method Toilet Toilet # Unmeasured Voids Void 1 Bowel Movement Yes # Bowel Movements 1 Gen: Venturimask 40%, awake alert, oriented, not in any painful diistress HEENT: Red macules on face improving, nose tip swelling improving, L nose redness improved, R side of tongue with 0.5cm reddish growth with white coating Cards: S1, S2, Chest: Crackles lung bases Abd: Obese, non tender Extremities: Mild edema b/l CBC, BMP 03/24/19 07:33 03/24/19 07:33 Microbiology 03/22/19 16:30 Blood - Peripheral Venous Blood Culture - Preliminary NO GROWTH OBTAINED AFTER 48 HOURS, INCUBATION TO CONTINUE FOR 3 DAYS. 03/22/19 16:05 Blood - Peripheral Venous Blood Culture - Preliminary NO GROWTH OBTAINED AFTER 48 HOURS, INCUBATION TO CONTINUE FOR 3 DAYS. 03/22/19 22:50 Urine For Antigen Detection Legionella Antigen - Final 03/22/19 22:50 Urine For Antigen Detection Streptococcus pneumoniae Antigen (M - Final Current Medications Acetaminophen (Tylenol -) 650 mg PO Q4H PRN PRN Reason: PAIN OR FEVER Last Admin: 03/23/19 21:36 Dose: 650 mg Albuterol Sulfate (Ventolin 0.083% Nebulizer Soln -) 1 amp NEB Q6H PRN PRN Reason: SHORT OF BREATH/WHEEZING Last Admin: 03/24/19 06:11 Dose: 1 amp Allopurinol (Zyloprim -) 100 mg PO BID [facility] Last Admin: 03/24/19 11:44 Dose: 100 mg Amiodarone HCl (Cordarone -) 200 mg PO DAILY [facility] Last Admin: 03/24/19 11:44 Dose: 200 mg Benzocaine/Menthol (Cepacol Lozenge -) 1 each MM PRN PRN PRN Reason: SORE THROAT Cyanocobalamin (Vitamin B12 -) 1,000 mcg PO DAILY [facility] Last Admin: 03/24/19 11:42 Dose: 1,000 mcg Doxazosin Mesylate (Cardura -) 2 mg PO DAILY [facility] Last Admin: 03/24/19 12:59 Dose: 2 mg Ergocalciferol (Drisdol -) 50,000 unit PO Q7D@1000 [facility] Last Admin: 03/23/19 10:29 Dose: 50,000 unit Folic Acid (Folic Acid -) 1 mg PO DAILY [facility] Last Admin: 03/24/19 11:44 Dose: 1 mg Guaifenesin (Robitussin Dm -) 10 ml PO Q4H PRN PRN Reason: COUGH Ceftriaxone Sodium 2 gm/ (Dextrose) 100 mls @ 100 mls/hr IVPB DAILY [facility]; Protocol Last Admin: 03/24/19 12:59 Dose: 100 mls/hr Clindamycin Phosphate (Cleocin 600 Mg Premix Ivpb -) 600 mg in 50 mls @ 100 mls /hr IVPB Q8H-IV [facility]; Protocol Last Admin: 03/24/19 17:21 Dose: 100 mls/hr Sodium Chloride (Normal Saline -) 1,000 mls @ 83 mls/hr IV ASDIR [facility] Stop: 03/25/19 02:14 Last Admin: 03/24/19 14:21 Dose: 83 mls/hr Levothyroxine Sodium (Synthroid -) 50 mcg PO DAILY@0700 [facility] Last Admin: 03/24/19 11:55 Dose: 50 mcg Metoprolol Succinate (Toprol Xl -) 200 mg PO DAILY [facility] Last Admin: 03/24/19 11:44 Dose: 200 mg Potassium Chloride (K-Dur -) 10 meq PO DAILY [facility] Last Admin: 03/24/19 11:42 Dose: 10 meq Rivaroxaban (Xarelto) 20 mg PO DAILY [facility] Last Admin: 03/24/19 11:44 Dose: 20 mg Rosuvastatin Calcium (Crestor -) 10 mg PO DAILY [facility] Last Admin: 03/24/19 11:43 Dose: 10 mg Pt is a 68 yo f with PMHx Uterine ca (s/p THBO w/ radiation, with kidney mets), afib on xarelto, HTN, Anemia, gout, hypothyroidism, DM presenting from home with 3 days hx of worsening SOB. Uterine ca (s/p THBO w/ radiation, with kidney mets), afib on xarelto, HTN, Anemia, gout, hypothyroidism, DM worsening SOB Possible symptomatic anemia Possible post obstructive PNA MADHAVI nodule LL consolidation Possible liver mets Penicilin allergy-rash Rash on nose Plan: Possible post obstructive PNA Sputum cx pending Legionella AG -ve Bcx- pending Ceftriaxone 2g daily- (03/23/16)- day 2 Clindamycin 600mg Q6H (03/22/19)- D/W Dr Jamari Lyons PGY 3
--- NOTE | 2019-03-24 21:57 | PN ---
Teaching Attending Note Name of Resident: Mercy Lyons ATTENDING PHYSICIAN STATEMENT I saw and evaluated the patient. I reviewed the resident's note and discussed the case with the resident. I agree with the resident's findings and plan as documented. SUBJECTIVE: OBJECTIVE: ASSESSMENT AND PLAN: ENDOMETRIAL CA PROBABLE LUNG METS ? POST OBSTRUCTIVE PNEUMONIA SOFT TISSUE INFECTION, NOSE PCN ALLERGY AWAIT C/S CONTINUE EMPIRIC CLINDAMYCIN/ CEFTRIAXONE LUNG BX
[2019-03-25] MEDS: CLINDAMYCIN 600MG PREMIX IVPB 600 MG/50 ML BAG IVPB SCH ×3 (01:15→19:19)
[2019-03-25] MEDS: SODIUM CHLORIDE 1,000 ML IV SCH (01:16)
[2019-03-25] MEDS: LEVOTHYROXINE NA 50 MCG TABLET (FP) PO SCH (06:04)
[2019-03-25] MEDS ORDERED: DEXTROSE 5%-WATER 100 ML IVPB ONE (08:13)
[2019-03-25 08:24] LABS: BASO % 0.4 % (0-2.0); HEMATOCRIT 19.4 % (32.4-45.2); LYMPH % 4.7 % (8-40); MCH 35.2 pg (25.7-33.7); MCHC 34.1 g/dl (32.0-36.0); MEAN CELL VOLUME 103.3 fl (80-96); MEAN PLT VOLUME 7.2 fl (7.5-11.1); MONO % 5.9 % (3.8-10.2); PLATELET COUNT 277 K/MM3 (134-434); RBC 1.88 M/mm3 (3.60-5.2); RDW 19.7 % (11.6-15.6); WHITE BLOOD COUNT 5.2 K/mm3 (4.0-10.0)
--- NOTE | 2019-03-25 08:27 | PN ---
Progress Note, Physician - Current Medication List Current Medications: Active Medications Acetaminophen (Tylenol -) 650 mg PO Q4H PRN PRN Reason: PAIN OR FEVER Last Admin: 03/23/19 21:36 Dose: 650 mg Albuterol Sulfate (Ventolin 0.083% Nebulizer Soln -) 1 amp NEB Q6H PRN PRN Reason: SHORT OF BREATH/WHEEZING Last Admin: 03/24/19 19:57 Dose: 1 amp Allopurinol (Zyloprim -) 100 mg PO BID [facility] Last Admin: 03/24/19 21:01 Dose: 100 mg Amiodarone HCl (Cordarone -) 200 mg PO DAILY [facility] Last Admin: 03/24/19 11:44 Dose: 200 mg Benzocaine/Menthol (Cepacol Lozenge -) 1 each MM PRN PRN PRN Reason: SORE THROAT Cyanocobalamin (Vitamin B12 -) 1,000 mcg PO DAILY [facility] Last Admin: 03/24/19 11:42 Dose: 1,000 mcg Doxazosin Mesylate (Cardura -) 2 mg PO DAILY [facility] Last Admin: 03/24/19 12:59 Dose: 2 mg Ergocalciferol (Drisdol -) 50,000 unit PO Q7D@1000 [facility] Last Admin: 03/23/19 10:29 Dose: 50,000 unit Folic Acid (Folic Acid -) 1 mg PO DAILY [facility] Last Admin: 03/24/19 11:44 Dose: 1 mg Guaifenesin (Robitussin Dm -) 10 ml PO Q4H PRN PRN Reason: COUGH Ceftriaxone Sodium 2 gm/ (Dextrose) 100 mls @ 100 mls/hr IVPB DAILY [facility]; Protocol Last Admin: 03/24/19 12:59 Dose: 100 mls/hr Clindamycin Phosphate (Cleocin 600 Mg Premix Ivpb -) 600 mg in 50 mls @ 100 mls /hr IVPB Q8H-IV [facility]; Protocol Last Admin: 03/25/19 01:15 Dose: 100 mls/hr Levothyroxine Sodium (Synthroid -) 50 mcg PO DAILY@0700 [facility] Last Admin: 03/25/19 06:04 Dose: 50 mcg Metoprolol Succinate (Toprol Xl -) 200 mg PO DAILY [facility] Last Admin: 03/24/19 11:44 Dose: 200 mg Potassium Chloride (K-Dur -) 10 meq PO DAILY [facility] Last Admin: 03/24/19 11:42 Dose: 10 meq Rivaroxaban (Xarelto) 20 mg PO DAILY [facility] Last Admin: 03/24/19 11:44 Dose: 20 mg Rosuvastatin Calcium (Crestor -) 10 mg PO DAILY [facility] Last Admin: 03/24/19 11:43 Dose: 10 mg - Objective Vital Signs: Vital Signs Temperature 98.6 F 03/25/19 06:00 Pulse Rate 65 03/25/19 06:00 Respiratory Rate 20 03/25/19 06:00 Blood Pressure 123/54 L 03/25/19 06:00 O2 Sat by Pulse Oximetry (%) 90 L 03/24/19 21:33 Cardiovascular: Yes: S1, S2 Respiratory: Yes: Regular, CTA Bilaterally Gastrointestinal: Yes: Normal Bowel Sounds, Soft Labs: INR, PTT INR 3.80 (0.83-1.09) H 03/22/19 10:39 Assessment/Plan - Problems (1) Afib Assessment/Plan: -Xarelto--hold--cardio -Amiodarone for rate control Code(s): I48.91 - UNSPECIFIED ATRIAL FIBRILLATION (2) HTN (hypertension) Assessment/Plan: -low Na diet -Cardura Code(s): I10 - ESSENTIAL (PRIMARY) HYPERTENSION (3) Uterine cancer Assessment/Plan: -Oncology consult -last RT 1 month ago Code(s): C55 - MALIGNANT NEOPLASM OF UTERUS, PART UNSPECIFIED (4) SOB (shortness of breath) Assessment/Plan: -Pulm Consult -Bronchodilators -O2 via NC -Chest CT scan shows 2.2 x 2.1cm subpleural mass MADHAVI anterolaterally, LLL mass measuring 4.4 x 7.1cm, prominence of interstitial markings within the left base suggesting fluid or lymphangitic spread, 5.8mm nodule noted within the lateral segment of the right middle lobe, small effusion on the left, trace effusion on the right, left hilar adenopathy measuring 1.8cm, pretracheal lymph node measuring 5mm, 1.8 x 1.8 low-density lesion segment IVb of the liver is noted -Pet Scan Code(s): R06.02 - SHORTNESS OF BREATH (5) Pneumonia Assessment/Plan: -Pulm Consult -Bronchodilators -O2 via NC -Chest CT scan shows 2.2 x 2.1cm subpleural mass MADHAVI anterolaterally, LLL mass measuring 4.4 x 7.1cm, prominence of interstitial markings within the left base suggesting fluid or lymphangitic spread, 5.8mm nodule noted within the lateral segment of the right middle lobe, small effusion on the left, trace effusion on the right, left hilar adenopathy measuring 1.8cm, pretracheal lymph node measuring 5mm, 1.8 x 1.8 low-density lesion segment IVb of the liver is noted -ID consult -no leukocytosis -low grade temps -Azithromycin, Ertapenem -BC pending -Urine Legiionella pending Code(s): J18.9 - PNEUMONIA, UNSPECIFIED ORGANISM Qualifiers: Pneumonia type: due to unspecified organism Laterality: left Lung location: lower lobe of lung Qualified Code(s): J18.1 - Lobar pneumonia, unspecified organism (6) HLD (hyperlipidemia) Assessment/Plan: -Rosuvastatin Code(s): E78.5 - HYPERLIPIDEMIA, UNSPECIFIED (7) Anemia Assessment/Plan: -Hg 7.0 -will transfuse 1U PRBC -monitor Hg daily -transfuse for Hg <7.0 -Stool OB -iron panel Code(s): D64.9 - ANEMIA, UNSPECIFIED (8) Liver lesion Assessment/Plan: -GI consult -Abdominal US Code(s): K76.9 - LIVER DISEASE, UNSPECIFIED Biopsy discussed--considering
[2019-03-25 08:56] LABS: HEMOGLOBIN 6.6 GM/dL (10.7-15.3)
[2019-03-25 09:05] LABS: ALBUMIN 2.4 g/dl (3.4-5.0); BILIRUBIN,TOTAL 0.5 mg/dL (0.2-1); BLOOD UREA NITROGEN 16.3 mg/dL (7-18); CALCIUM 7.2 mg/dL (8.5-10.1); CREATININE 1.1 mg/dL (0.55-1.3); PHOSPHOROUS 3.3 mg/dL (2.5-4.9); POTASSIUM 3.9 mmol/L (3.5-5.1); TOT PROT 5.8 g/dl (6.4-8.2)
--- NOTE | 2019-03-25 09:50 | PN ---
Progress Note, Physician - Current Medication List Current Medications: Active Medications Acetaminophen (Tylenol -) 650 mg PO Q4H PRN PRN Reason: PAIN OR FEVER Last Admin: 03/23/19 21:36 Dose: 650 mg Albuterol Sulfate (Ventolin 0.083% Nebulizer Soln -) 1 amp NEB Q6H PRN PRN Reason: SHORT OF BREATH/WHEEZING Last Admin: 03/24/19 19:57 Dose: 1 amp Allopurinol (Zyloprim -) 100 mg PO BID [facility] Last Admin: 03/24/19 21:01 Dose: 100 mg Amiodarone HCl (Cordarone -) 200 mg PO DAILY [facility] Last Admin: 03/24/19 11:44 Dose: 200 mg Benzocaine/Menthol (Cepacol Lozenge -) 1 each MM PRN PRN PRN Reason: SORE THROAT Cyanocobalamin (Vitamin B12 -) 1,000 mcg PO DAILY [facility] Last Admin: 03/24/19 11:42 Dose: 1,000 mcg Doxazosin Mesylate (Cardura -) 2 mg PO DAILY [facility] Last Admin: 03/24/19 12:59 Dose: 2 mg Ergocalciferol (Drisdol -) 50,000 unit PO Q7D@1000 [facility] Last Admin: 03/23/19 10:29 Dose: 50,000 unit Folic Acid (Folic Acid -) 1 mg PO DAILY [facility] Last Admin: 03/24/19 11:44 Dose: 1 mg Guaifenesin (Robitussin Dm -) 10 ml PO Q4H PRN PRN Reason: COUGH Ceftriaxone Sodium 2 gm/ (Dextrose) 100 mls @ 100 mls/hr IVPB DAILY [facility]; Protocol Last Admin: 03/24/19 12:59 Dose: 100 mls/hr Clindamycin Phosphate (Cleocin 600 Mg Premix Ivpb -) 600 mg in 50 mls @ 100 mls /hr IVPB Q8H-IV [facility]; Protocol Last Admin: 03/25/19 01:15 Dose: 100 mls/hr Levothyroxine Sodium (Synthroid -) 50 mcg PO DAILY@0700 [facility] Last Admin: 03/25/19 06:04 Dose: 50 mcg Metoprolol Succinate (Toprol Xl -) 200 mg PO DAILY [facility] Last Admin: 03/24/19 11:44 Dose: 200 mg Potassium Chloride (K-Dur -) 10 meq PO DAILY [facility] Last Admin: 03/24/19 11:42 Dose: 10 meq Rivaroxaban (Xarelto) 20 mg PO DAILY [facility] Last Admin: 03/24/19 11:44 Dose: 20 mg Rosuvastatin Calcium (Crestor -) 10 mg PO DAILY [facility] Last Admin: 03/24/19 11:43 Dose: 10 mg - Objective Vital Signs: Vital Signs Temperature 97.7 F 03/25/19 09:48 Pulse Rate 70 03/25/19 09:48 Respiratory Rate 14 03/25/19 09:48 Blood Pressure 115/50 L 03/25/19 09:48 O2 Sat by Pulse Oximetry (%) 97 03/25/19 09:49 Labs: CBC, BMP 03/25/19 07:10 03/25/19 07:10 INR, PTT INR 3.80 (0.83-1.09) H 03/22/19 10:39
[2019-03-25] MEDS ORDERED: DOCUSATE SODIUM 100 MG CAPSULE (FP) PO PRN (10:25)
[2019-03-25] MEDS: AMIODARONE HCL 200 MG TABLET (FP) PO SCH (10:45)
[2019-03-25] MEDS: DOXAZOSIN MESYLATE 2 MG TABLET (FP) PO SCH (10:45)
[2019-03-25] MEDS: ALLOPURINOL 100 MG TABLET (FP) PO SCH ×2 (10:46→21:30)
[2019-03-25] MEDS: POTASSIUM CHLORIDE TABS 10 MEQ TABLET.ER (FP) PO SCH (10:46)
[2019-03-25] MEDS: RIVAROXABAN 20 MG TABLET PO SCH (10:46)
[2019-03-25] MEDS: CEFTRIAXONE 2 GM in DEXTROSE 5%-WATER 100 ML IVPB SCH (10:46)
[2019-03-25] MEDS: FOLIC ACID 1 MG TABLET (FP) PO SCH (10:46)
[2019-03-25] MEDS: CYANOCOBALAMIN 1,000 MCG TABLET (FP) PO SCH (10:46)
[2019-03-25] MEDS: ROSUVASTATIN CA 10 MG TABLET (FP) PO SCH (10:46)
[2019-03-25] MEDS ORDERED: MAGNESIUM HYDROX 2400MG/30ML ORAL SUSPENSION 30 ML CUP PO ONE (11:00)
--- NOTE | 2019-03-25 11:30 | PN ---
Progress Note (short form) - Note Progress Note: Doing well. Comfortable. No abdominal or GI complaints. VSS Abd soft, NTHgb=6.6 with elevated UAW=268; normal platelet count; retic count good: 3.95 INR=3.8 Anemia Multifactorial anemia in patient with uterine Ca (surgery and RT) with SOB likely from PNA or mets Liver lesion on CT Suggest Please obtain CT report from [facility] Please obtain iron studies Follow Hgb Possible EGD/colonoscopy if iron deficient and/or suggestion of overt GI bleeding Will follow with you
--- NOTE | 2019-03-25 13:06 | CONS ---
DATE OF CONSULTATION: 03/24/2019 REFERRING PHYSICIAN: Naresh Ruvalcaba MD REASON FOR CONSULTATION: History of endometrial cancer with new lung finding. 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 She required and completed postoperative pelvic external beam radiation therapy (45 Sanchez) on February 20, 2019. She had the usual expected fatigue and loose bowel movements when she completed treatment and was scheduled for an in-office follow up with me tomorrow. Of note, she has a history of a 2 cm right renal lower pole mass, which is being followed by her urologist at [facility]. She had repeat CT scans at [facility] last month and those results are not available at this time. She was admitted to [facility] for increasing shortness of breath, exertional dyspnea and pleuritic chest pain. She has commenced antibiotic therapy for a presumed pneumonia. She denied cough, hemoptysis, but again endorses fatigue. The chest CT, which I reviewed with the radiologist, showed a post obstructive left lower lobe mass/consolidation and upper lobe mass suspicious for malignancy. Her breathing has improved and she denied weight loss, loss of appetite. PAST MEDICAL HISTORY: Prior radiotherapy as noted in the HPI. She has anemia, atrial fibrillation, hypercholesterolemia and hypertension. She had a hysterectomy as noted. She had a parathyroidectomy in 2013. ALLERGIES: PENICILLIN. CURRENT MEDICATIONS: Allopurinol, Robitussin p.r.n., albuterol nebulizer p.r.n., Toprol-XL, Crestor, potassium chloride, Synthroid, vitamin B12, folic acid, vitamin D, Xarelto, clindamycin, ceftriaxone, amiodarone, Cardura. SOCIAL HISTORY: She is a former smoker, quit 30 years ago. She does not consume alcohol. Menarche at age 15. Parity at age 29. She breast fed and used control pills. She underwent menopause in her mid-50s. She did not use hormone replacement therapy. She is a homemaker. She is with 2 children. FAMILY HISTORY: Mother had breast cancer. Father had head and neck cancer. REVIEW OF SYSTEMS: See HPI. PHYSICAL EXAMINATION: General: woman appearing her chronological age in no acute distress. Her sister and are at the bedside. Vital signs: Temperature 98.7, blood pressure 144/62, pulse 78, respiratory rate 15, SAO2 97% on Venturi mask. HEENT: Normocephalic. Left superficial nasal abrasion and erythema. Mucous membranes are moist. Oral cavity is clear. Neck: Supple without mass. Chest: Bilateral rhonchi, left greater than right, no rales, or wheezes. Abdomen: Soft, nontender, nondistended without hyperpigmentation, no inguinal adenopathy, or abdominal mass. Extremities: No significant edema. Neurologic: Grossly nonfocal. RADIOLOGIC DATA: See HPI. LABORATORY DATA: WBC 7.4, hemoglobin 8.0, platelet count 325,000. Electrolytes within normal limits. BUN 20.7, creatinine 1.4, calcium 7.8. LFTs within normal limits. Albumin 2.7. TSH 5.07. IMPRESSION: Early endometrial cancer, status post hysterectomy and postoperative pelvic radiation therapy completed 1 month ago. There is a history of a right renal mass, which is being followed. Repeat CT scans done at outside facility are not available. She has new respiratory findings on CT scan consistent with infectious and/or neoplastic process. I reviewed the imaging studies with the radiologist who feels that the left upper lobe peripheral mass is accessible for a needle biopsy. We will consider biopsy to rule out a primary lung malignancy, or metastasis from either endometrial or renal origin. Will need to review the outside abdominal CT or repeat the study here. She will continue the present respiratory and ID management. I discussed the findings with the patient, her , and sister. They will further consider their options with their physician. Thank you for the courtesy of this consultation. PAULINE MITTAL M.D. [id number]
[2019-03-25] MEDS ORDERED: FUROSEMIDE 40 MG/4 ML INJECTABLE VIAL IVPUSH ONE (14:08)
--- NOTE | 2019-03-25 14:08 | PN ---
Progress Note (short form) - Note Progress Note: PULMONARY Breathing better today. Chest pain resolved. Vital Signs Period Temp Pulse Resp BP Sys/Kenney Pulse Ox Last 24 Hr 97.7 F-98.6 F 65-70 14-88 115-136/50-84 90-97 Gen: less tachypneic Heart: RRR Lung: decreased breath sounds at the bases Abd: soft, nontender Ext: no edema CBC, BMP 03/25/19 07:10 03/25/19 07:10 Active Medications Acetaminophen (Tylenol -) 650 mg PO Q4H PRN PRN Reason: PAIN OR FEVER Last Admin: 03/23/19 21:36 Dose: 650 mg Albuterol Sulfate (Ventolin 0.083% Nebulizer Soln -) 1 amp NEB Q6H PRN PRN Reason: SHORT OF BREATH/WHEEZING Last Admin: 03/24/19 19:57 Dose: 1 amp Allopurinol (Zyloprim -) 100 mg PO BID [facility] Last Admin: 03/25/19 10:46 Dose: 100 mg Amiodarone HCl (Cordarone -) 200 mg PO DAILY [facility] Last Admin: 03/25/19 10:45 Dose: 200 mg Benzocaine/Menthol (Cepacol Lozenge -) 1 each MM PRN PRN PRN Reason: SORE THROAT Cyanocobalamin (Vitamin B12 -) 1,000 mcg PO DAILY [facility] Last Admin: 03/25/19 10:46 Dose: 1,000 mcg Docusate Sodium (Colace -) 100 mg PO Q8H PRN PRN Reason: CONSTIPATION Doxazosin Mesylate (Cardura -) 2 mg PO DAILY [facility] Last Admin: 03/25/19 10:45 Dose: 2 mg Ergocalciferol (Drisdol -) 50,000 unit PO Q7D@1000 [facility] Last Admin: 03/23/19 10:29 Dose: 50,000 unit Folic Acid (Folic Acid -) 1 mg PO DAILY [facility] Last Admin: 03/25/19 10:46 Dose: 1 mg Guaifenesin (Robitussin Dm -) 10 ml PO Q4H PRN PRN Reason: COUGH Ceftriaxone Sodium 2 gm/ (Dextrose) 100 mls @ 100 mls/hr IVPB DAILY [facility]; Protocol Last Admin: 03/25/19 10:46 Dose: 100 mls/hr Clindamycin Phosphate (Cleocin 600 Mg Premix Ivpb -) 600 mg in 50 mls @ 100 mls /hr IVPB Q8H-IV [facility]; Protocol Last Admin: 03/25/19 11:30 Dose: 100 mls/hr Levothyroxine Sodium (Synthroid -) 50 mcg PO DAILY@0700 [facility] Last Admin: 03/25/19 06:04 Dose: 50 mcg Metoprolol Succinate (Toprol Xl -) 200 mg PO DAILY [facility] Last Admin: 03/25/19 10:46 Dose: 200 mg Potassium Chloride (K-Dur -) 10 meq PO DAILY [facility] Last Admin: 03/25/19 10:46 Dose: 10 meq Rivaroxaban (Xarelto) 20 mg PO DAILY [facility] Last Admin: 03/25/19 10:46 Dose: 20 mg Rosuvastatin Calcium (Crestor -) 10 mg PO DAILY [facility] Last Admin: 03/25/19 10:46 Dose: 10 mg A/P Uterine Ca s/p Hysterectomy/RT Lung Nodule/Mass/Liver Lesion suspect metastatic disease r/o Pneumonia Atrial Fibrillation HTN Hyperlipidemia Anemia - continue antibiotics - obtain results of last CT A/P - repeat CT chest in 3-4 weeks to reassess lung nodules/mass - will need biopsy of lung mass via CT guided needle biopsy or bronchoscopy if findings persist - transfuse PRBC - monitor H/H - DVT prophylaxis Problem List - Problems (1) SOB (shortness of breath) Code(s): R06.02 - SHORTNESS OF BREATH (2) Afib Code(s): I48.91 - UNSPECIFIED ATRIAL FIBRILLATION (3) Anemia Code(s): D64.9 - ANEMIA, UNSPECIFIED (4) HLD (hyperlipidemia) Code(s): E78.5 - HYPERLIPIDEMIA, UNSPECIFIED (5) HTN (hypertension) Code(s): I10 - ESSENTIAL (PRIMARY) HYPERTENSION (6) Liver lesion Code(s): K76.9 - LIVER DISEASE, UNSPECIFIED (7) Pneumonia Code(s): J18.9 - PNEUMONIA, UNSPECIFIED ORGANISM Qualifiers: Pneumonia type: due to unspecified organism Laterality: left Lung location: lower lobe of lung Qualified Code(s): J18.1 - Lobar pneumonia, unspecified organism (8) Uterine cancer Code(s): C55 - MALIGNANT NEOPLASM OF UTERUS, PART UNSPECIFIED
--- NOTE | 2019-03-25 16:53 | PN ---
Progress Note (short form) - Note Progress Note: pt noted to have a drop in Hgb to 6.6 today. Would stop Xarelto until confirmed whether or not there is a bleeding source.
[2019-03-25] MEDS ORDERED: BACITRACIN 15 GM TUBE TOPICAL OINTMENT ONE (18:52)
[2019-03-25] MEDS: BACITRACIN 15 GM TUBE TOPICAL OINTMENT TP SCH (21:30)
[2019-03-26] MEDS: CLINDAMYCIN 600MG PREMIX IVPB 600 MG/50 ML BAG IVPB SCH ×3 (03:38→17:46)
[2019-03-26] MEDS: ALBUTEROL SO4 0.083% IH SOL 2.5 MG/3 ML VIAL.NEB. NEB PRN ×3 (05:16→20:44)
[2019-03-26] MEDS: LEVOTHYROXINE NA 50 MCG TABLET (FP) PO SCH (06:23)
[2019-03-26 08:03] LABS: HEMATOCRIT 23.4 % (32.4-45.2); HEMOGLOBIN 8.2 GM/dL (10.7-15.3); MCH 34.7 pg (25.7-33.7); MEAN CELL VOLUME 99.1 fl (80-96); MEAN PLT VOLUME 7.2 fl (7.5-11.1); PLATELET COUNT 268 K/MM3 (134-434); RBC 2.36 M/mm3 (3.60-5.2); RDW 19.4 % (11.6-15.6)
[2019-03-26 08:07] LABS: BLOOD UREA NITROGEN 15.5 mg/dL (7-18); CALCIUM 7.6 mg/dL (8.5-10.1); POTASSIUM 4.1 mmol/L (3.5-5.1)
--- NOTE | 2019-03-26 10:02 | PN ---
Progress Note (short form) - Note Progress Note: PULMONARY Reports streaky hemoptysis overnight mixed with mucous. No fevers or chest pain. Vital Signs Period Temp Pulse Resp BP Sys/Kennye Pulse Ox Last 24 Hr 98.4 F-98.5 F 60-67 20-20 125-131/58-59 97 Gen: NAD at rest Heart: RRR Lung: decreased breath sounds at the bases Abd: soft, nontender Ext: no edema CBC, BMP 03/26/19 07:00 03/26/19 07:00 Active Medications Acetaminophen (Tylenol -) 650 mg PO Q4H PRN PRN Reason: PAIN OR FEVER Last Admin: 03/23/19 21:36 Dose: 650 mg Albuterol Sulfate (Ventolin 0.083% Nebulizer Soln -) 1 amp NEB Q6H PRN PRN Reason: SHORT OF BREATH/WHEEZING Last Admin: 03/26/19 05:16 Dose: 1 amp Allopurinol (Zyloprim -) 100 mg PO BID [facility] Last Admin: 03/25/19 21:30 Dose: 100 mg Amiodarone HCl (Cordarone -) 200 mg PO DAILY [facility] Last Admin: 03/25/19 10:45 Dose: 200 mg Bacitracin (Bacitracin -) 1 applic TP BID [facility] Last Admin: 03/25/19 21:30 Dose: 1 applic Benzocaine/Menthol (Cepacol Lozenge -) 1 each MM PRN PRN PRN Reason: SORE THROAT Cyanocobalamin (Vitamin B12 -) 1,000 mcg PO DAILY [facility] Last Admin: 03/25/19 10:46 Dose: 1,000 mcg Docusate Sodium (Colace -) 100 mg PO Q8H PRN PRN Reason: CONSTIPATION Last Admin: 03/25/19 14:08 Dose: 100 mg Doxazosin Mesylate (Cardura -) 2 mg PO DAILY [facility] Last Admin: 03/25/19 10:45 Dose: 2 mg Ergocalciferol (Drisdol -) 50,000 unit PO Q7D@1000 [facility] Last Admin: 03/23/19 10:29 Dose: 50,000 unit Folic Acid (Folic Acid -) 1 mg PO DAILY [facility] Last Admin: 03/25/19 10:46 Dose: 1 mg Guaifenesin (Robitussin Dm -) 10 ml PO Q4H PRN PRN Reason: COUGH Last Admin: 03/25/19 14:09 Dose: 10 ml Ceftriaxone Sodium 2 gm/ (Dextrose) 100 mls @ 100 mls/hr IVPB DAILY [facility]; Protocol Last Admin: 03/25/19 10:46 Dose: 100 mls/hr Clindamycin Phosphate (Cleocin 600 Mg Premix Ivpb -) 600 mg in 50 mls @ 100 mls /hr IVPB Q8H-IV [facility]; Protocol Last Admin: 03/26/19 03:38 Dose: 100 mls/hr Levothyroxine Sodium (Synthroid -) 50 mcg PO DAILY@0700 [facility] Last Admin: 03/26/19 06:23 Dose: 50 mcg Metoprolol Succinate (Toprol Xl -) 200 mg PO DAILY [facility] Last Admin: 03/25/19 10:46 Dose: 200 mg Potassium Chloride (K-Dur -) 10 meq PO DAILY [facility] Last Admin: 03/25/19 10:46 Dose: 10 meq Rosuvastatin Calcium (Crestor -) 10 mg PO DAILY [facility] Last Admin: 03/25/19 10:46 Dose: 10 mg A/P Uterine Ca s/p Hysterectomy/RT Lung Nodule/Mass/Liver Lesion suspect metastatic disease r/o Pneumonia Hemoptysis Atrial Fibrillation HTN Hyperlipidemia Anemia - monitor/quantify hemoptysis - continue antibiotics - obtain results of last CT A/P - repeat CT chest in 3-4 weeks to reassess lung nodules/mass - will need biopsy of lung mass via CT guided needle biopsy or bronchoscopy if findings persist - monitor H/H - anticoagulation on hold - DVT prophylaxis Problem List - Problems (1) SOB (shortness of breath) Code(s): R06.02 - SHORTNESS OF BREATH (2) Afib Code(s): I48.91 - UNSPECIFIED ATRIAL FIBRILLATION (3) Anemia Code(s): D64.9 - ANEMIA, UNSPECIFIED (4) HLD (hyperlipidemia) Code(s): E78.5 - HYPERLIPIDEMIA, UNSPECIFIED (5) HTN (hypertension) Code(s): I10 - ESSENTIAL (PRIMARY) HYPERTENSION (6) Liver lesion Code(s): K76.9 - LIVER DISEASE, UNSPECIFIED (7) Pneumonia Code(s): J18.9 - PNEUMONIA, UNSPECIFIED ORGANISM Qualifiers: Pneumonia type: due to unspecified organism Laterality: left Lung location: lower lobe of lung Qualified Code(s): J18.1 - Lobar pneumonia, unspecified organism (8) Uterine cancer Code(s): C55 - MALIGNANT NEOPLASM OF UTERUS, PART UNSPECIFIED
--- NOTE | 2019-03-26 10:16 | PN ---
Progress Note, Physician Chief Complaint: Pneumonia Afib Anemia Uterine CA History of Present Illness: Previous notes and events reviewed awake and alert NAD complain of hemoptysis during the night continue to have SOB with exertion Stool OB positive - Current Medication List Current Medications: Active Medications Acetaminophen (Tylenol -) 650 mg PO Q4H PRN PRN Reason: PAIN OR FEVER Last Admin: 03/23/19 21:36 Dose: 650 mg Albuterol Sulfate (Ventolin 0.083% Nebulizer Soln -) 1 amp NEB Q6H PRN PRN Reason: SHORT OF BREATH/WHEEZING Last Admin: 03/26/19 05:16 Dose: 1 amp Allopurinol (Zyloprim -) 100 mg PO BID [facility] Last Admin: 03/25/19 21:30 Dose: 100 mg Amiodarone HCl (Cordarone -) 200 mg PO DAILY [facility] Last Admin: 03/25/19 10:45 Dose: 200 mg Bacitracin (Bacitracin -) 1 applic TP BID [facility] Last Admin: 03/25/19 21:30 Dose: 1 applic Benzocaine/Menthol (Cepacol Lozenge -) 1 each MM PRN PRN PRN Reason: SORE THROAT Cyanocobalamin (Vitamin B12 -) 1,000 mcg PO DAILY [facility] Last Admin: 03/25/19 10:46 Dose: 1,000 mcg Docusate Sodium (Colace -) 100 mg PO Q8H PRN PRN Reason: CONSTIPATION Last Admin: 03/25/19 14:08 Dose: 100 mg Doxazosin Mesylate (Cardura -) 2 mg PO DAILY [facility] Last Admin: 03/25/19 10:45 Dose: 2 mg Ergocalciferol (Drisdol -) 50,000 unit PO Q7D@1000 [facility] Last Admin: 03/23/19 10:29 Dose: 50,000 unit Folic Acid (Folic Acid -) 1 mg PO DAILY [facility] Last Admin: 03/25/19 10:46 Dose: 1 mg Guaifenesin (Robitussin Dm -) 10 ml PO Q4H PRN PRN Reason: COUGH Last Admin: 03/25/19 14:09 Dose: 10 ml Ceftriaxone Sodium 2 gm/ (Dextrose) 100 mls @ 100 mls/hr IVPB DAILY [facility]; Protocol Last Admin: 03/25/19 10:46 Dose: 100 mls/hr Clindamycin Phosphate (Cleocin 600 Mg Premix Ivpb -) 600 mg in 50 mls @ 100 mls /hr IVPB Q8H-IV [facility]; Protocol Last Admin: 03/26/19 03:38 Dose: 100 mls/hr Levothyroxine Sodium (Synthroid -) 50 mcg PO DAILY@0700 [facility] Last Admin: 03/26/19 06:23 Dose: 50 mcg Metoprolol Succinate (Toprol Xl -) 200 mg PO DAILY [facility] Last Admin: 03/25/19 10:46 Dose: 200 mg Potassium Chloride (K-Dur -) 10 meq PO DAILY [facility] Last Admin: 03/25/19 10:46 Dose: 10 meq Rosuvastatin Calcium (Crestor -) 10 mg PO DAILY [facility] Last Admin: 03/25/19 10:46 Dose: 10 mg - Objective Vital Signs: Vital Signs Temperature 98.5 F 03/26/19 06:00 Pulse Rate 67 03/26/19 06:00 Respiratory Rate 20 03/26/19 06:00 Blood Pressure 131/58 L 03/26/19 06:00 O2 Sat by Pulse Oximetry (%) 97 03/25/19 21:00 Constitutional: Yes: No Distress, Calm Eyes: Yes: Conjunctiva Clear HENT: Yes: Atraumatic Cardiovascular: Yes: Pulse Irregular Respiratory: Yes: Regular, On Nasal O2, Rhonchi Gastrointestinal: Yes: Normal Bowel Sounds, Soft Musculoskeletal: Yes: Muscle Weakness Extremities: Yes: WNL Edema: No Neurological: Yes: Alert, Oriented Psychiatric: Yes: Alert, Oriented Labs: CBC, BMP 03/26/19 07:00 03/26/19 07:00 INR, PTT INR 3.80 (0.83-1.09) H 03/22/19 10:39 Microbiology 03/22/19 16:30 Blood - Peripheral Venous Blood Culture - Preliminary NO GROWTH OBTAINED AFTER 72 HOURS, INCUBATION TO CONTINUE FOR 2 DAYS. 03/22/19 16:05 Blood - Peripheral Venous Blood Culture - Preliminary NO GROWTH OBTAINED AFTER 72 HOURS, INCUBATION TO CONTINUE FOR 2 DAYS. 03/24/19 07:10 Sputum - Expectorated Gram Stain - Final 03/24/19 07:10 Sputum - Expectorated Sputum Culture - Preliminary NORMAL RESPIRATORY LEIDY 03/22/19 22:50 Urine For Antigen Detection Legionella Antigen - Final 03/22/19 22:50 Urine For Antigen Detection Streptococcus pneumoniae Antigen (M - Final Problem List - Problems (1) Afib Assessment/Plan: -Xarelto -Amiodarone for rate control Code(s): I48.91 - UNSPECIFIED ATRIAL FIBRILLATION (2) HTN (hypertension) Assessment/Plan: -low Na diet -Cardura Code(s): I10 - ESSENTIAL (PRIMARY) HYPERTENSION (3) Uterine cancer Assessment/Plan: -Oncology consult -last RT 1 month ago -Radiation Oncology on board Code(s): C55 - MALIGNANT NEOPLASM OF UTERUS, PART UNSPECIFIED (4) SOB (shortness of breath) Assessment/Plan: -Pulm Consult -Bronchodilators -O2 via NC -Chest CT scan shows 2.2 x 2.1cm subpleural mass MADHAVI anterolaterally, LLL mass measuring 4.4 x 7.1cm, prominence of interstitial markings within the left base suggesting fluid or lymphangitic spread, 5.8mm nodule noted within the lateral segment of the right middle lobe, small effusion on the left, trace effusion on the right, left hilar adenopathy measuring 1.8cm, pretracheal lymph node measuring 5mm, 1.8 x 1.8 low-density lesion segment IVb of the liver is noted Code(s): R06.02 - SHORTNESS OF BREATH (5) Pneumonia Assessment/Plan: -Pulm Consult -Bronchodilators -O2 via NC -Chest CT scan shows 2.2 x 2.1cm subpleural mass MADHAVI anterolaterally, LLL mass measuring 4.4 x 7.1cm, prominence of interstitial markings within the left base suggesting fluid or lymphangitic spread, 5.8mm nodule noted within the lateral segment of the right middle lobe, small effusion on the left, trace effusion on the right, left hilar adenopathy measuring 1.8cm, pretracheal lymph node measuring 5mm, 1.8 x 1.8 low-density lesion segment IVb of the liver is noted -ID consult -no leukocytosis -low grade temps -Ceftriaxone and CLindamycin -BC pending -Urine Legiionella pending Code(s): J18.9 - PNEUMONIA, UNSPECIFIED ORGANISM Qualifiers: Pneumonia type: due to unspecified organism Laterality: left Lung location: lower lobe of lung Qualified Code(s): J18.1 - Lobar pneumonia, unspecified organism (6) HLD (hyperlipidemia) Assessment/Plan: -Rosuvastatin Code(s): E78.5 - HYPERLIPIDEMIA, UNSPECIFIED (7) Anemia Assessment/Plan: -Hg 8.2 -s/p PRBC transfusion yesterday -monitor Hg daily -transfuse for Hg <7.0 -Stool OB positive -iron panel -patient taking Xareltyo for Afib, will need to speak with cardiology in regard to risk vs benefits of holding medication due to anemia and now positive Stool OB -GI on board Code(s): D64.9 - ANEMIA, UNSPECIFIED (8) Liver lesion Assessment/Plan: -GI consult -Abdominal US Code(s): K76.9 - LIVER DISEASE, UNSPECIFIED Assessment/Plan see problem list
[2019-03-26] MEDS ORDERED: PT OWN MED DRAWER 7, Y5N ONE (10:52)
[2019-03-26] MEDS ORDERED: DEXTROSE 5%-WATER 100 ML IVPB ONE (10:53)
[2019-03-26] MEDS: POTASSIUM CHLORIDE TABS 10 MEQ TABLET.ER (FP) PO SCH (10:56)
[2019-03-26] MEDS: CYANOCOBALAMIN 1,000 MCG TABLET (FP) PO SCH (10:56)
[2019-03-26] MEDS: ROSUVASTATIN CA 10 MG TABLET (FP) PO SCH (10:56)
[2019-03-26] MEDS: CEFTRIAXONE 2 GM in DEXTROSE 5%-WATER 100 ML IVPB SCH (10:56)
[2019-03-26] MEDS: AMIODARONE HCL 200 MG TABLET (FP) PO SCH (10:56)
[2019-03-26] MEDS: DOXAZOSIN MESYLATE 2 MG TABLET (FP) PO SCH (10:57)
[2019-03-26] MEDS: ALLOPURINOL 100 MG TABLET (FP) PO SCH ×2 (10:57→21:28)
[2019-03-26] MEDS: FOLIC ACID 1 MG TABLET (FP) PO SCH (10:57)
[2019-03-26] MEDS: BACITRACIN 15 GM TUBE TOPICAL OINTMENT TP SCH ×2 (10:57→21:29)
--- NOTE | 2019-03-26 14:35 | PN.GI ---
GI Progress Note Subjective: Dark BM noted yesterday per patient, some blood streaked sputum as well. No mavis rectal bleeding or melena noted today. Guaiac positive from specimen sent yesterday. S/P 3 U PRBC yesterday. Tachypnic on exam. No abdominal pain. She believes that last EGD/colonoscopy were performed about 5-[address] Muñoz. Colon polyps may have been removed. - Objective Vital Signs: Vital Signs Temperature 98.2 F 03/26/19 11:08 Pulse Rate 63 03/26/19 11:08 Respiratory Rate 20 03/26/19 11:08 Blood Pressure 118/56 L 03/26/19 11:08 O2 Sat by Pulse Oximetry (%) 97 03/26/19 09:00 Constitutional: Calm Eyes: No: Sclera Icterus Cardiovascular: Yes: Regular Rate and Rhythm Respiratory: Yes: Rhonchi (bilaterally) ...Auscultate: Yes: Normoactive Bowel Sounds ...Palpate: Yes: Soft. No: Hepatomegaly, Splenomegaly, Tenderness ...Rectal Exam: Yes: Other (Consultant Education present: no external lesions, no masses, no blood/stool present in rectal vault.) Edema: No (No LE edema) Neurological: Yes: Alert Labs: CBC, BMP 03/26/19 07:00 03/26/19 07:00 INR, PTT INR 3.80 (0.83-1.09) H 03/22/19 10:39 Problem List - Problems (1) Anemia Assessment/Plan: Likely multifactorial. With recent drop and dark bowel movement described yesterday, GI source of blood loos contributing to it must be considered. Xarelto has been held with last dose being given yesterday per medex. As part of initial evaluation discussed upper endoscopy to exclude upper GI source followed by possible colonoscopy. Discussed potential risks of the procedures like but not limited to bleeding, perforation requiring surgery to repair, infection, sedation medication effects all of which could be potentially life threatening. She has agreed to the procedure. Discussed possible banding of varices if necessary as well. NPO after midnight. Will be off of xarelto x 2 days tomorrow Protonix 40mg PO BID for now. If development of gross melena, NPO, change to PPI drip and transfer to ICU setting Discussed respiratory status with Dr. Johnson. She thinks that she is optimized for ebdoscopic evaluation, however, given finding of bilateral rhonchi on exam, PA/ LAT CXR has been ordered and will be reviewed. Monitor H/H and for signs of active GI bleeding Hematology following Code(s): D64.9 - ANEMIA, UNSPECIFIED
--- NOTE | 2019-03-26 14:38 | PN ---
Progress Note, Physician Chief Complaint: Symptomatically improved History of Present Illness: This is a 68 year old female with a PMH of Uterine ca (s/p THBO w/ radiation, with kidney mets), afib on xarelto, HTN, Anemia, gout, hypothyroidism, DM admitted with 3 days hx of worsening SOB. Noted to be anemic in PMD's office. Diagnosed with Pafib 10/2018 prior to hysterectomy for severe uterine bleeding. started on amiodarone at that time with a plan for 6 months of amio. started on xarelto after hysterectomy. Xarelto now held and she has received PRBC's. 03/26/19 HR 63 BPM and BP 118/56 mmHg - Current Medication List Current Medications: Active Medications Acetaminophen (Tylenol -) 650 mg PO Q4H PRN PRN Reason: PAIN OR FEVER Last Admin: 03/23/19 21:36 Dose: 650 mg Albuterol Sulfate (Ventolin 0.083% Nebulizer Soln -) 1 amp NEB Q6H PRN PRN Reason: SHORT OF BREATH/WHEEZING Last Admin: 03/26/19 05:16 Dose: 1 amp Allopurinol (Zyloprim -) 100 mg PO BID [facility] Last Admin: 03/26/19 10:57 Dose: 100 mg Amiodarone HCl (Cordarone -) 200 mg PO DAILY [facility] Last Admin: 03/26/19 10:56 Dose: 200 mg Bacitracin (Bacitracin -) 1 applic TP BID [facility] Last Admin: 03/26/19 10:57 Dose: 1 applic Benzocaine/Menthol (Cepacol Lozenge -) 1 each MM PRN PRN PRN Reason: SORE THROAT Cyanocobalamin (Vitamin B12 -) 1,000 mcg PO DAILY [facility] Last Admin: 03/26/19 10:56 Dose: 1,000 mcg Docusate Sodium (Colace -) 100 mg PO Q8H PRN PRN Reason: CONSTIPATION Last Admin: 03/25/19 14:08 Dose: 100 mg Doxazosin Mesylate (Cardura -) 2 mg PO DAILY [facility] Last Admin: 03/26/19 10:57 Dose: 2 mg Ergocalciferol (Drisdol -) 50,000 unit PO Q7D@1000 [facility] Last Admin: 03/23/19 10:29 Dose: 50,000 unit Folic Acid (Folic Acid -) 1 mg PO DAILY [facility] Last Admin: 03/26/19 10:57 Dose: 1 mg Guaifenesin (Robitussin Dm -) 10 ml PO Q4H PRN PRN Reason: COUGH Last Admin: 03/25/19 14:09 Dose: 10 ml Ceftriaxone Sodium 2 gm/ (Dextrose) 100 mls @ 100 mls/hr IVPB DAILY [facility]; Protocol Last Admin: 03/26/19 10:56 Dose: 100 mls/hr Clindamycin Phosphate (Cleocin 600 Mg Premix Ivpb -) 600 mg in 50 mls @ 100 mls /hr IVPB Q8H-IV [facility]; Protocol Last Admin: 03/26/19 10:56 Dose: 100 mls/hr Levothyroxine Sodium (Synthroid -) 50 mcg PO DAILY@0700 [facility] Last Admin: 03/26/19 06:23 Dose: 50 mcg Metoprolol Succinate (Toprol Xl -) 50 mg PO DAILY [facility] Potassium Chloride (K-Dur -) 10 meq PO DAILY [facility] Last Admin: 03/26/19 10:56 Dose: 10 meq Rosuvastatin Calcium (Crestor -) 10 mg PO DAILY [facility] Last Admin: 03/26/19 10:56 Dose: 10 mg - Objective Vital Signs: Vital Signs Temperature 98.2 F 03/26/19 11:08 Pulse Rate 63 03/26/19 11:08 Respiratory Rate 20 03/26/19 11:08 Blood Pressure 118/56 L 03/26/19 11:08 O2 Sat by Pulse Oximetry (%) 97 03/26/19 09:00 Constitutional: Yes: Well Nourished HENT: Yes: WNL Neck: Yes: WNL Cardiovascular: Yes: Regular Rate and Rhythm, S1, S2 Respiratory: Yes: CTA Bilaterally Gastrointestinal: Yes: Soft Extremities: Yes: WNL Edema: No Integumentary: Yes: Other (Nose lesion) Neurological: Yes: Alert, Oriented Labs: CBC, BMP 03/26/19 07:00 03/26/19 07:00 INR, PTT INR 3.80 (0.83-1.09) H 03/22/19 10:39 Assessment/Plan 68 year old female with a PMH of Uterine ca (s/p THBO w/ radiation, with kidney mets), afib on xarelto, HTN, Anemia, gout, hypothyroidism, DM admitted with 3 days hx of worsening SOB. Noted to be anemic in PMD's office. Diagnosed with Pafib 10/2018 prior to hysterectomy for severe uterine bleeding. started on amiodarone at that time with a plan for 6 months of amio. started on xarelto after hysterectomy. Xarelto now held and she has received PRBC's. 03/26/19 HR 63 BPM and BP 118/56 mmHg I recommended decreasing the Toprol XL from 200 mg PO daily to 50 mg PO daily given the current vitals. If the heart rate goes fast again, would increase Toprol XL tp 100 mg PO daily. Continue to hold Xarelto. Continue amiodarone 200 mg PO daily.
--- NOTE | 2019-03-26 14:54 | PN ---
Progress Note (short form) - Note Progress Note: Renal function is improved and stable s/p IVF. Continue remainder of management as per primary. Will sign off case at this time. please call if there is any change in clinical status Juan Francisco Neely DO
[2019-03-27] MEDS: CLINDAMYCIN 600MG PREMIX IVPB 600 MG/50 ML BAG IVPB SCH ×3 (01:25→17:29)
[2019-03-27] MEDS: LEVOTHYROXINE NA 50 MCG TABLET (FP) PO SCH (06:24)
[2019-03-27] MEDS: ALBUTEROL SO4 0.083% IH SOL 2.5 MG/3 ML VIAL.NEB. NEB PRN (07:40)
[2019-03-27 08:11] LABS: HEMOGLOBIN 8.1 GM/dL (10.7-15.3); MCH 33.8 pg (25.7-33.7); MCHC 33.9 g/dl (32.0-36.0); MEAN CELL VOLUME 99.5 fl (80-96); MEAN PLT VOLUME 7.2 fl (7.5-11.1); PLATELET COUNT 301 K/MM3 (134-434); RBC 2.41 M/mm3 (3.60-5.2); RDW 19.4 % (11.6-15.6); WHITE BLOOD COUNT 5.8 K/mm3 (4.0-10.0)
[2019-03-27 08:44] LABS: ALBUMIN 2.5 g/dl (3.4-5.0); BILIRUBIN,TOTAL 0.8 mg/dL (0.2-1); BLOOD UREA NITROGEN 12.2 mg/dL (7-18); CALCIUM 7.7 mg/dL (8.5-10.1); POTASSIUM 3.9 mmol/L (3.5-5.1); TOT PROT 5.8 g/dl (6.4-8.2)
--- NOTE | 2019-03-27 09:03 | PN ---
Progress Note, Physician - Current Medication List Current Medications: Active Medications Acetaminophen (Tylenol -) 650 mg PO Q4H PRN PRN Reason: PAIN OR FEVER Last Admin: 03/23/19 21:36 Dose: 650 mg Albuterol Sulfate (Ventolin 0.083% Nebulizer Soln -) 1 amp NEB Q6H PRN PRN Reason: SHORT OF BREATH/WHEEZING Last Admin: 03/26/19 20:44 Dose: 1 amp Allopurinol (Zyloprim -) 100 mg PO BID [facility] Last Admin: 03/26/19 21:28 Dose: 100 mg Amiodarone HCl (Cordarone -) 200 mg PO DAILY [facility] Last Admin: 03/26/19 10:56 Dose: 200 mg Bacitracin (Bacitracin -) 1 applic TP BID [facility] Last Admin: 03/26/19 21:29 Dose: 1 applic Benzocaine/Menthol (Cepacol Lozenge -) 1 each MM PRN PRN PRN Reason: SORE THROAT Cyanocobalamin (Vitamin B12 -) 1,000 mcg PO DAILY [facility] Last Admin: 03/26/19 10:56 Dose: 1,000 mcg Docusate Sodium (Colace -) 100 mg PO Q8H PRN PRN Reason: CONSTIPATION Last Admin: 03/25/19 14:08 Dose: 100 mg Doxazosin Mesylate (Cardura -) 2 mg PO DAILY [facility] Last Admin: 03/26/19 10:57 Dose: 2 mg Ergocalciferol (Drisdol -) 50,000 unit PO Q7D@1000 [facility] Last Admin: 03/23/19 10:29 Dose: 50,000 unit Folic Acid (Folic Acid -) 1 mg PO DAILY [facility] Last Admin: 03/26/19 10:57 Dose: 1 mg Guaifenesin (Robitussin Dm -) 10 ml PO Q4H PRN PRN Reason: COUGH Last Admin: 03/25/19 14:09 Dose: 10 ml Ceftriaxone Sodium 2 gm/ (Dextrose) 100 mls @ 100 mls/hr IVPB DAILY [facility]; Protocol Last Admin: 03/26/19 10:56 Dose: 100 mls/hr Clindamycin Phosphate (Cleocin 600 Mg Premix Ivpb -) 600 mg in 50 mls @ 100 mls /hr IVPB Q8H-IV [facility]; Protocol Last Admin: 03/27/19 01:25 Dose: 100 mls/hr Sodium Chloride (1/2 Normal Saline) 1,000 mls @ 42 mls/hr IV ASDIR [facility] Levothyroxine Sodium (Synthroid -) 50 mcg PO DAILY@0700 [facility] Last Admin: 03/27/19 06:24 Dose: 50 mcg Metoprolol Succinate (Toprol Xl -) 50 mg PO DAILY [facility] Last Admin: 03/26/19 17:16 Dose: Not Given Potassium Chloride (K-Dur -) 10 meq PO DAILY [facility] Last Admin: 03/26/19 10:56 Dose: 10 meq Rosuvastatin Calcium (Crestor -) 10 mg PO DAILY [facility] Last Admin: 03/26/19 10:56 Dose: 10 mg - Objective Vital Signs: Vital Signs Temperature 98.7 F 03/27/19 06:00 Pulse Rate 104 H 03/27/19 06:00 Respiratory Rate 20 03/27/19 06:00 Blood Pressure 117/71 03/27/19 06:00 O2 Sat by Pulse Oximetry (%) 95 03/26/19 21:00 Cardiovascular: Yes: Regular Rate and Rhythm Respiratory: Yes: Diminished, On Nasal O2, Rales Gastrointestinal: Yes: Normal Bowel Sounds, Soft Labs: CBC, BMP 03/27/19 07:20 03/27/19 07:20 INR, PTT INR 3.80 (0.83-1.09) H 03/22/19 10:39 Assessment/Plan - Problems (1) Afib Assessment/Plan: -Xarelto on hold -Amiodarone for rate control -metoprolol 50 -cardio on board Code(s): I48.91 - UNSPECIFIED ATRIAL FIBRILLATION (2) HTN (hypertension) Assessment/Plan: -low Na diet -Cardura Code(s): I10 - ESSENTIAL (PRIMARY) HYPERTENSION (3) Uterine cancer Assessment/Plan: -Oncology consult -last RT 1 month ago -Radiation Oncology on board Code(s): C55 - MALIGNANT NEOPLASM OF UTERUS, PART UNSPECIFIED (4) SOB (shortness of breath) Assessment/Plan: -Pulm Consult -Bronchodilators -O2 via NC -Lasix -Chest CT scan shows 2.2 x 2.1cm subpleural mass MADHAVI anterolaterally, LLL mass measuring 4.4 x 7.1cm, prominence of interstitial markings within the left base suggesting fluid or lymphangitic spread, 5.8mm nodule noted within the lateral segment of the right middle lobe, small effusion on the left, trace effusion on the right, left hilar adenopathy measuring 1.8cm, pretracheal lymph node measuring 5mm, 1.8 x 1.8 low-density lesion segment IVb of the liver is noted Code(s): R06.02 - SHORTNESS OF BREATH (5) Pneumonia Assessment/Plan: -Pulm Consult -Bronchodilators -O2 via NC -Chest CT scan shows 2.2 x 2.1cm subpleural mass MADHAVI anterolaterally, LLL mass measuring 4.4 x 7.1cm, prominence of interstitial markings within the left base suggesting fluid or lymphangitic spread, 5.8mm nodule noted within the lateral segment of the right middle lobe, small effusion on the left, trace effusion on the right, left hilar adenopathy measuring 1.8cm, pretracheal lymph node measuring 5mm, 1.8 x 1.8 low-density lesion segment IVb of the liver is noted -ID consult -no leukocytosis -low grade temps -Ceftriaxone and CLindamycin -BC pending -Urine Legiionella pending Code(s): J18.9 - PNEUMONIA, UNSPECIFIED ORGANISM Qualifiers: Pneumonia type: due to unspecified organism Laterality: left Lung location: lower lobe of lung Qualified Code(s): J18.1 - Lobar pneumonia, unspecified organism (6) HLD (hyperlipidemia) Assessment/Plan: -Rosuvastatin Code(s): E78.5 - HYPERLIPIDEMIA, UNSPECIFIED (7) Anemia Assessment/Plan: -Hg 8.2 -s/p PRBC transfusion yesterday -monitor Hg daily -transfuse for Hg <7.0 -Stool OB positive -iron panel -patient taking Xareltyo for Afib, will need to speak with cardiology in regard to risk vs benefits of holding medication due to anemia and now positive Stool OB -GI on board Code(s): D64.9 - ANEMIA, UNSPECIFIED (8) Liver lesion Assessment/Plan: -GI consult -Abdominal US Code(s): K76.9 - LIVER DISEASE, UNSPECIFIED
[2019-03-27] MEDS ORDERED: DEXTROSE 5%-WATER 100 ML IVPB ONE (09:32)
[2019-03-27] MEDS: SODIUM CHLORIDE 0.45% 1,000 ML IV SCH (09:37)
[2019-03-27] MEDS: BACITRACIN 15 GM TUBE TOPICAL OINTMENT TP SCH ×2 (09:44→21:47)
[2019-03-27] MEDS: CEFTRIAXONE 2 GM in DEXTROSE 5%-WATER 100 ML IVPB SCH (10:22)
[2019-03-27] MEDS ORDERED: FUROSEMIDE 40 MG/4 ML INJECTABLE VIAL IVPUSH ONE (11:44)
--- NOTE | 2019-03-27 13:10 | PN ---
Progress Note (short form) - Note Progress Note: EGD complete. Report left in procedural section of physical chart and will be scanned into [facility]. Blood in posterior pharynx arytenoids. Coincides with hemoptysis history. Pulm reveal, ENT eval. D/C protonix Problem List - Problems (1) Anemia Code(s): D64.9 - ANEMIA, UNSPECIFIED
--- NOTE | 2019-03-27 14:23 | PN ---
Progress Note (short form) - Note Progress Note: PULMONARY RETURNS FROM EGD APPEARS STABLE VSS/AFEBRILE REPORTS NO FURTHER HEMOPTYSIS Gen: NAD at rest Heart: RRR Lung: decreased breath sounds at the bases Abd: soft, nontender Ext: no edema A/P Uterine Ca s/p Hysterectomy/RT Lung Nodule/Mass/Liver Lesion suspect metastatic disease r/o Pneumonia Hemoptysis Atrial Fibrillation HTN Hyperlipidemia Anemia - continue to monitor/quantify hemoptysis - continue antibiotics - obtain results of last CT A/P - repeat CT chest in 3-4 weeks to reassess lung nodules/mass - will need biopsy of lung mass via CT guided needle biopsy or bronchoscopy if findings persist - monitor H/H - anticoagulation on hold - DVT prophylaxis Vera AYON MD
[2019-03-27] MEDS ORDERED: PT OWN MED DRAWER 7, Y5N ONE ×3 (14:27→17:27)
[2019-03-27] MEDS: FOLIC ACID 1 MG TABLET (FP) PO SCH (14:31)
[2019-03-27] MEDS: AMIODARONE HCL 200 MG TABLET (FP) PO SCH (14:31)
[2019-03-27] MEDS: DOXAZOSIN MESYLATE 2 MG TABLET (FP) PO SCH ×2 (14:31→14:45)
[2019-03-27] MEDS: ROSUVASTATIN CA 10 MG TABLET (FP) PO SCH (14:31)
[2019-03-27] MEDS: POTASSIUM CHLORIDE TABS 10 MEQ TABLET.ER (FP) PO SCH (14:32)
[2019-03-27] MEDS: CYANOCOBALAMIN 1,000 MCG TABLET (FP) PO SCH (14:32)
[2019-03-27] MEDS: ALLOPURINOL 100 MG TABLET (FP) PO SCH ×2 (14:34→21:45)
--- NOTE | 2019-03-27 16:03 | PN ---
Progress Note (short form) - Note Progress Note: Hematology and oncology follow-up Subjective: Patient seen and examined at bedside. Patient's breathing continues to improve daily. She states that she feels much better today than on admission. Objective: Vital Signs Temperature 97.5 F L 03/27/19 14:00 Pulse Rate 96 H 03/27/19 14:00 Respiratory Rate 20 03/27/19 14:00 Blood Pressure 149/66 03/27/19 14:00 O2 Sat by Pulse Oximetry (%) 92 L 03/27/19 13:21 Physical Exam: General: Patient well appearing and sitting up in bed. Lungs: Crackles heard at the left base; improved today than on my last exam Heart: regular rate a rhythm, s1, s2 heard. No murmurs, gallops or rubs auscultated Abdomen: soft, nontender, nondistended, bowel sounds heard CBC, BMP 03/27/19 07:20 03/27/19 07:20 Active Medications Acetaminophen (Tylenol -) 650 mg PO Q4H PRN PRN Reason: PAIN OR FEVER Last Admin: 03/23/19 21:36 Dose: 650 mg Albuterol Sulfate (Ventolin 0.083% Nebulizer Soln -) 1 amp NEB Q6H PRN PRN Reason: SHORT OF BREATH/WHEEZING Last Admin: 03/27/19 07:40 Dose: 1 amp Allopurinol (Zyloprim -) 100 mg PO BID [facility] Last Admin: 03/27/19 14:34 Dose: 100 mg Amiodarone HCl (Cordarone -) 200 mg PO DAILY [facility] Last Admin: 03/27/19 14:31 Dose: 200 mg Bacitracin (Bacitracin -) 1 applic TP BID [facility] Last Admin: 03/27/19 09:44 Dose: 1 applic Benzocaine/Menthol (Cepacol Lozenge -) 1 each MM PRN PRN PRN Reason: SORE THROAT Cyanocobalamin (Vitamin B12 -) 1,000 mcg PO DAILY [facility] Last Admin: 03/27/19 14:32 Dose: 1,000 mcg Docusate Sodium (Colace -) 100 mg PO Q8H PRN PRN Reason: CONSTIPATION Last Admin: 03/25/19 14:08 Dose: 100 mg Doxazosin Mesylate (Cardura -) 2 mg PO DAILY [facility] Last Admin: 03/27/19 14:45 Dose: Not Given Ergocalciferol (Drisdol -) 50,000 unit PO Q7D@1000 [facility] Last Admin: 03/23/19 10:29 Dose: 50,000 unit Folic Acid (Folic Acid -) 1 mg PO DAILY [facility] Last Admin: 03/27/19 14:31 Dose: 1 mg Guaifenesin (Robitussin Dm -) 10 ml PO Q4H PRN PRN Reason: COUGH Last Admin: 03/25/19 14:09 Dose: 10 ml Ceftriaxone Sodium 2 gm/ (Dextrose) 100 mls @ 100 mls/hr IVPB DAILY [facility]; Protocol Last Admin: 03/27/19 10:22 Dose: 100 mls/hr Clindamycin Phosphate (Cleocin 600 Mg Premix Ivpb -) 600 mg in 50 mls @ 100 mls /hr IVPB Q8H-IV [facility]; Protocol Last Admin: 03/27/19 09:43 Dose: 100 mls/hr Sodium Chloride (1/2 Normal Saline) 1,000 mls @ 42 mls/hr IV ASDIR [facility] Last Admin: 03/27/19 09:37 Dose: 42 mls/hr Levothyroxine Sodium (Synthroid -) 50 mcg PO DAILY@0700 [facility] Last Admin: 03/27/19 06:24 Dose: 50 mcg Metoprolol Succinate (Toprol Xl -) 50 mg PO DAILY [facility] Last Admin: 03/27/19 14:32 Dose: 50 mg Potassium Chloride (K-Dur -) 10 meq PO DAILY [facility] Last Admin: 03/27/19 14:32 Dose: 10 meq Rosuvastatin Calcium (Crestor -) 10 mg PO DAILY [facility] Last Admin: 03/27/19 14:31 Dose: 10 mg Home Medications Medication Instructions Recorded Allopurinol [Zyloprim -] 100 mg PO BID 03/22/19 Amiodarone HCl 200 mg PO DAILY 03/22/19 Cyanocobalamin (Vitamin B-12) 1,000 mcg PO DAILY 03/22/19 [Vitamin B-12] Doxazosin Mesylate 2 mg PO DAILY 03/22/19 Ergocalciferol (Vitamin D2) 1 cap PO WEEKLY 03/22/19 [Vitamin D2] Ergocalciferol (Vitamin D2) 50,000 unit PO WEEKLY 03/22/19 [Vitamin D2] Folic Acid - 1 mg PO DAILY 03/22/19 Furosemide 20 mg PO DAILY 03/22/19 Hydralazine HCl 100 mg PO TID 03/22/19 Levothyroxine [Synthroid -] 50 mcg PO DAILY 03/22/19 Metoprolol Succinate 200 mg PO DAILY 03/22/19 Afton-3/Dha/Epa/Fish Oil [Afton 3 350 mg PO DAILY 03/22/19 500 Softgel] Potassium Chloride [Klor-Con M10] 10 mg PO DAILY 03/22/19 Rivaroxaban [Xarelto -] 20 mg PO DAILY 03/22/19 Rosuvastatin Calcium 10 mg PO DAILY 03/22/19 Allergies Allergy/AdvReac Type Severity Reaction Status Date / Time Penicillins Allergy Verified 03/22/19 09:58 Assessment and plan: The patient is a 68 yo f w/ PMH Uterine ca (s/p total hysterectomy and b/l oophrectomy w/ radiation), afib on xeralto, HTN, Anemia who comes into the ED c/ o progressively worsening SOB and dyspnea on exertion. She was found to have several masses and lymphadenopathy in the left lung on CT chest. She has been admitted for the treatment of pneumonia and further evaluation of these lung masses. #Shortness of breath, dyspnea on exertion likely secondary to post obstructive versus community acquired pneumonia. -Antibiotics per ID -blood cultures pending -Patient improving daily #New masses, nodules and lymphadenopathy in the lung rule out metastatic disease. -Patient follows at [facility] for the majority of her medical care (see HPI) -Patient has elected to go forward with the biopsy at [facility]. -Patient would also benefit from PET in the future #Anemia possibly secondary chronic disease versus iron deficiency -hemoglobin 8.1 today -Patient endorses hemoptysis and dark colored stools -GI following; patient for endoscopy today and colonoscopy in the future -would recommend awaiting GIB stabilization before proceeding with biopsy. -Hb transfusion goal should be 8 given cardiac comorbidities.
--- NOTE | 2019-03-27 18:10 | PN ---
Teaching Attending Note Name of Resident: Shankar Boothe ATTENDING PHYSICIAN STATEMENT I saw and evaluated the patient. I reviewed the resident's note and discussed the case with the resident. I agree with the resident's findings and plan as documented. SUBJECTIVE: Patient seen and examined Remains somewhat dyspneic Underwent EGD For colonoscopy and for lung biopsy thereafter Maintain Hb at 8 gm% or higher Last Vital Signs Temp Pulse Resp BP Pulse Ox 97.5 F L 96 H 20 149/66 92 L 03/27/19 14:00 03/27/19 14:00 03/27/19 14:00 03/27/19 14:00 03/27/19 13:21 HEENT: [place], EOM Intact; tip of nose and left lateral nares blackened area ?? MRSA ? other Cor: RSR, No murmurs, No gallops Lungs: scattered rhonchi Abd: Soft, Normal bowel sounds, No organomegaly Ext:No significant edema Skin: tip of nose and left lateral area of nares - blackened area raised, nodular CBC, BMP 03/27/19 07:20 03/27/19 07:20 Current Medications Generic Name Dose Route Start Last Admin Trade Name Freq PRN Reason Stop Dose Admin Acetaminophen 650 mg 03/22/19 19:01 03/23/19 21:36 Tylenol - PO 650 mg Q4H PRN Administration PAIN OR FEVER Albuterol Sulfate 1 amp 03/22/19 19:01 03/27/19 07:40 Ventolin 0.083% Nebulizer Soln - NEB 1 amp Q6H PRN Administration SHORT OF BREATH/WHEEZING Allopurinol 100 mg 03/22/19 22:00 03/27/19 14:34 Zyloprim - PO 100 mg BID [facility] Administration Amiodarone HCl 200 mg 03/23/19 10:00 03/27/19 14:31 Cordarone - PO 200 mg DAILY [facility] Administration Bacitracin 1 applic 03/25/19 22:00 03/27/19 09:44 Bacitracin - TP 1 applic BID [facility] Administration Benzocaine/Menthol 1 each 03/22/19 19:05 Cepacol Lozenge - MM PRN PRN SORE THROAT Cyanocobalamin 1,000 mcg 03/23/19 10:00 03/27/19 14:32 Vitamin B12 - PO 1,000 mcg DAILY [facility] Administration Docusate Sodium 100 mg 03/25/19 10:25 03/25/19 14:08 Colace - PO 100 mg Q8H PRN Administration CONSTIPATION Doxazosin Mesylate 2 mg 03/23/19 10:00 03/27/19 14:45 Cardura - PO Not Given DAILY [facility] Ergocalciferol 50,000 unit 03/23/19 10:00 03/23/19 10:29 Drisdol - PO 50,000 unit Q7D@1000 [facility] Administration Folic Acid 1 mg 03/23/19 10:00 03/27/19 14:31 Folic Acid - PO 1 mg DAILY [facility] Administration Guaifenesin 10 ml 03/22/19 19:05 03/25/19 14:09 Robitussin Dm - PO 10 ml Q4H PRN Administration COUGH Ceftriaxone Sodium 2 gm/ 100 mls @ 100 mls/hr 03/23/19 12:15 03/27/19 10:22 Dextrose IVPB 100 mls/hr DAILY [facility] Administration Protocol Clindamycin Phosphate 600 mg in 50 mls @ 100 mls/hr 03/23/19 12:00 03/27/19 17:29 Cleocin 600 Mg Premix Ivpb - IVPB 100 mls/hr Q8H-IV [facility] Administration Protocol Sodium Chloride 1,000 mls @ 42 mls/hr 03/27/19 08:45 03/27/19 09:37 1/2 Normal Saline IV 42 mls/hr ASDIR [facility] Administration Levothyroxine Sodium 50 mcg 03/23/19 07:00 03/27/19 06:24 Synthroid - PO 50 mcg DAILY@0700 [facility] Administration Metoprolol Succinate 50 mg 03/26/19 14:15 03/27/19 14:32 Toprol Xl - PO 50 mg DAILY [facility] Administration Potassium Chloride 10 meq 03/23/19 10:00 03/27/19 14:32 K-Dur - PO 10 meq DAILY [facility] Administration Rosuvastatin Calcium 10 mg 03/23/19 10:00 03/27/19 14:31 Crestor - PO 10 mg DAILY [facility] Administration OBJECTIVE: Impression: Endometrial ca Pneumonia Lung masses GI bleeding Anemia Blackened nodularity nose and lateral to nares--?? infectious Plan: Colonoscopy Lung biopsy PET as out patient after rtesolution of infection. ASSESSMENT AND PLAN:
[2019-03-28] MEDS: CLINDAMYCIN 600MG PREMIX IVPB 600 MG/50 ML BAG IVPB SCH ×3 (01:19→17:11)
[2019-03-28] MEDS ORDERED: PT OWN MED DRAWER 7, Y5N ONE ×3 (05:51→19:37)
[2019-03-28] MEDS: LEVOTHYROXINE NA 50 MCG TABLET (FP) PO SCH (06:22)
--- NOTE | 2019-03-28 09:05 | PN ---
Progress Note, Physician Chief Complaint: AWAKE ALERT EGD RESULT REVIEWED PT DENIES FEVER OR CHILLS +APPETITE - Current Medication List Current Medications: Active Medications Acetaminophen (Tylenol -) 650 mg PO Q4H PRN PRN Reason: PAIN OR FEVER Last Admin: 03/23/19 21:36 Dose: 650 mg Albuterol Sulfate (Ventolin 0.083% Nebulizer Soln -) 1 amp NEB Q6H PRN PRN Reason: SHORT OF BREATH/WHEEZING Last Admin: 03/27/19 07:40 Dose: 1 amp Allopurinol (Zyloprim -) 100 mg PO BID [facility] Last Admin: 03/27/19 21:45 Dose: 100 mg Amiodarone HCl (Cordarone -) 200 mg PO DAILY [facility] Last Admin: 03/27/19 14:31 Dose: 200 mg Bacitracin (Bacitracin -) 1 applic TP BID [facility] Last Admin: 03/27/19 21:47 Dose: 1 applic Benzocaine/Menthol (Cepacol Lozenge -) 1 each MM PRN PRN PRN Reason: SORE THROAT Cyanocobalamin (Vitamin B12 -) 1,000 mcg PO DAILY [facility] Last Admin: 03/27/19 14:32 Dose: 1,000 mcg Docusate Sodium (Colace -) 100 mg PO Q8H PRN PRN Reason: CONSTIPATION Last Admin: 03/25/19 14:08 Dose: 100 mg Doxazosin Mesylate (Cardura -) 2 mg PO DAILY [facility] Last Admin: 03/27/19 14:45 Dose: Not Given Ergocalciferol (Drisdol -) 50,000 unit PO Q7D@1000 [facility] Last Admin: 03/23/19 10:29 Dose: 50,000 unit Folic Acid (Folic Acid -) 1 mg PO DAILY [facility] Last Admin: 03/27/19 14:31 Dose: 1 mg Guaifenesin (Robitussin Dm -) 10 ml PO Q4H PRN PRN Reason: COUGH Last Admin: 03/25/19 14:09 Dose: 10 ml Ceftriaxone Sodium 2 gm/ (Dextrose) 100 mls @ 100 mls/hr IVPB DAILY [facility]; Protocol Last Admin: 03/27/19 10:22 Dose: 100 mls/hr Clindamycin Phosphate (Cleocin 600 Mg Premix Ivpb -) 600 mg in 50 mls @ 100 mls /hr IVPB Q8H-IV [facility]; Protocol Last Admin: 03/28/19 01:19 Dose: 100 mls/hr Sodium Chloride (1/2 Normal Saline) 1,000 mls @ 42 mls/hr IV ASDIR [facility] Last Admin: 03/27/19 09:37 Dose: 42 mls/hr Levothyroxine Sodium (Synthroid -) 50 mcg PO DAILY@0700 [facility] Last Admin: 03/28/19 06:22 Dose: 50 mcg Metoprolol Succinate (Toprol Xl -) 50 mg PO DAILY [facility] Last Admin: 03/27/19 14:32 Dose: 50 mg Potassium Chloride (K-Dur -) 10 meq PO DAILY [facility] Last Admin: 03/27/19 14:32 Dose: 10 meq Rosuvastatin Calcium (Crestor -) 10 mg PO DAILY [facility] Last Admin: 03/27/19 14:31 Dose: 10 mg - Objective Vital Signs: Vital Signs Temperature 98.9 F 03/28/19 06:25 Pulse Rate 71 03/28/19 06:25 Respiratory Rate 18 03/28/19 06:25 Blood Pressure 117/64 03/28/19 06:25 O2 Sat by Pulse Oximetry (%) 91 L 03/27/19 21:00 Constitutional: Yes: No Distress HENT: Yes: Other (EROSION/BLISTERING TO NOSE NO ACTIVE BLEED) Cardiovascular: Yes: Pulse Irregular Respiratory: Yes: Diminished, On Nasal O2 Gastrointestinal: Yes: Soft, Abdomen, Obese Genitourinary: Yes: WNL Musculoskeletal: Yes: WNL Extremities: Yes: WNL Edema: No Peripheral Pulses WNL: Yes Integumentary: Yes: Erythema, Skin Tear (NASAL AREA) Wound/Incision: Yes: Open to air Neurological: Yes: Other Psychiatric: Yes: WNL Labs: CBC, BMP 03/27/19 07:20 03/27/19 07:20 INR, PTT INR 3.80 (0.83-1.09) H 03/22/19 10:39 Problem List - Problems (1) GI bleed Code(s): K92.2 - GASTROINTESTINAL HEMORRHAGE, UNSPECIFIED (2) Lung mass Code(s): R91.8 - OTHER NONSPECIFIC ABNORMAL FINDING OF LUNG FIELD (3) Skin abnormality Code(s): L98.9 - DISORDER OF THE SKIN AND SUBCUTANEOUS TISSUE, UNSPECIFIED (4) Nasal abrasion Code(s): S00.31XA - ABRASION OF NOSE, INITIAL ENCOUNTER (5) Afib Code(s): I48.91 - UNSPECIFIED ATRIAL FIBRILLATION (6) Anemia Code(s): D64.9 - ANEMIA, UNSPECIFIED (7) HLD (hyperlipidemia) Code(s): E78.5 - HYPERLIPIDEMIA, UNSPECIFIED (8) HTN (hypertension) Code(s): I10 - ESSENTIAL (PRIMARY) HYPERTENSION Assessment/Plan EGD/COLONOSCOPY REVIEWED EGD NO ACTIVE BLEEDS COLONOSCOPY SATURDAY. NEED A BIOPSY OF THE NASAL AREA R/O NEOPLASM BACITRACIN OINTMENT FOR NOW. WILL D/W DERMATOLOGY ENT CONSULT FOR EGD FINDINGS. LUNG BIOPSY PENDING IV ABX LUZ/CEFTRIAXONE IV OOB TO CHAIR ONCOLOGY WORKUP APPRECIATED TRANSFUSE PRBC NEEDED
[2019-03-28 09:08] LABS: BASO % 0.4 % (0-2.0); HEMATOCRIT 24.5 % (32.4-45.2); HEMOGLOBIN 8.3 GM/dL (10.7-15.3); LYMPH % 6.1 % (8-40); MCH 33.9 pg (25.7-33.7); MCHC 33.8 g/dl (32.0-36.0); MEAN CELL VOLUME 100.3 fl (80-96); MONO % 5.7 % (3.8-10.2); NEUT % 85.8 % (42.8-82.8); PLATELET COUNT 304 K/MM3 (134-434); RBC 2.44 M/mm3 (3.60-5.2); RDW 18.9 % (11.6-15.6); WHITE BLOOD COUNT 5.7 K/mm3 (4.0-10.0)
[2019-03-28 09:39] LABS: ALBUMIN 2.6 g/dl (3.4-5.0); BILIRUBIN,TOTAL 0.9 mg/dL (0.2-1); BLOOD UREA NITROGEN 12.8 mg/dL (7-18); CALCIUM 7.9 mg/dL (8.5-10.1); CREATININE 1.1 mg/dL (0.55-1.3); POTASSIUM 4.3 mmol/L (3.5-5.1)
[2019-03-28] MEDS ORDERED: DEXTROSE 5%-WATER 100 ML IVPB ONE (09:42)
[2019-03-28] MEDS: DOXAZOSIN MESYLATE 2 MG TABLET (FP) PO SCH (09:44)
[2019-03-28] MEDS: FOLIC ACID 1 MG TABLET (FP) PO SCH (09:45)
[2019-03-28] MEDS: AMIODARONE HCL 200 MG TABLET (FP) PO SCH (09:45)
[2019-03-28] MEDS: POTASSIUM CHLORIDE TABS 10 MEQ TABLET.ER (FP) PO SCH (09:45)
[2019-03-28] MEDS: ROSUVASTATIN CA 10 MG TABLET (FP) PO SCH (09:45)
[2019-03-28] MEDS: ALLOPURINOL 100 MG TABLET (FP) PO SCH ×2 (09:46→21:37)
[2019-03-28] MEDS: CYANOCOBALAMIN 1,000 MCG TABLET (FP) PO SCH (09:46)
[2019-03-28] MEDS: BACITRACIN 15 GM TUBE TOPICAL OINTMENT TP SCH ×2 (09:47→21:37)
[2019-03-28] MEDS: CEFTRIAXONE 2 GM in DEXTROSE 5%-WATER 100 ML IVPB SCH (10:45)
--- NOTE | 2019-03-28 11:46 | PN ---
Progress Note (short form) - Note Progress Note: Breathing feels about the same. Still with significant CLAROS. No reported hemoptysis overnight. No CP. No acute events overnight. Intake & Output 03/25/19 03/26/19 03/27/19 03/28/19 23:59 23:59 23:59 23:59 Intake Total 3463 1000 605 500 Output Total 300 Balance 3163 1000 605 500 Last Vital Signs Temp Pulse Resp BP Pulse Ox 98.9 F 71 18 117/64 91 L 03/28/19 06:25 03/28/19 06:25 03/28/19 06:25 03/28/19 06:25 03/27/19 21:00 Active Medications Acetaminophen (Tylenol -) 650 mg PO Q4H PRN PRN Reason: PAIN OR FEVER Last Admin: 03/23/19 21:36 Dose: 650 mg Albuterol Sulfate (Ventolin 0.083% Nebulizer Soln -) 1 amp NEB Q6H PRN PRN Reason: SHORT OF BREATH/WHEEZING Last Admin: 03/27/19 07:40 Dose: 1 amp Allopurinol (Zyloprim -) 100 mg PO BID [facility] Last Admin: 03/28/19 09:46 Dose: 100 mg Amiodarone HCl (Cordarone -) 200 mg PO DAILY [facility] Last Admin: 03/28/19 09:45 Dose: 200 mg Bacitracin (Bacitracin -) 1 applic TP BID [facility] Last Admin: 03/28/19 09:47 Dose: 1 applic Benzocaine/Menthol (Cepacol Lozenge -) 1 each MM PRN PRN PRN Reason: SORE THROAT Cyanocobalamin (Vitamin B12 -) 1,000 mcg PO DAILY [facility] Last Admin: 03/28/19 09:46 Dose: 1,000 mcg Docusate Sodium (Colace -) 100 mg PO Q8H PRN PRN Reason: CONSTIPATION Last Admin: 03/25/19 14:08 Dose: 100 mg Doxazosin Mesylate (Cardura -) 2 mg PO DAILY [facility] Last Admin: 03/28/19 09:44 Dose: 2 mg Ergocalciferol (Drisdol -) 50,000 unit PO Q7D@1000 [facility] Last Admin: 03/23/19 10:29 Dose: 50,000 unit Folic Acid (Folic Acid -) 1 mg PO DAILY [facility] Last Admin: 03/28/19 09:45 Dose: 1 mg Guaifenesin (Robitussin Dm -) 10 ml PO Q4H PRN PRN Reason: COUGH Last Admin: 03/25/19 14:09 Dose: 10 ml Ceftriaxone Sodium 2 gm/ (Dextrose) 100 mls @ 100 mls/hr IVPB DAILY [facility]; Protocol Last Admin: 03/28/19 10:45 Dose: 100 mls/hr Clindamycin Phosphate (Cleocin 600 Mg Premix Ivpb -) 600 mg in 50 mls @ 100 mls /hr IVPB Q8H-IV [facility]; Protocol Last Admin: 03/28/19 09:46 Dose: 100 mls/hr Sodium Chloride (1/2 Normal Saline) 1,000 mls @ 42 mls/hr IV ASDIR [facility] Last Admin: 03/27/19 09:37 Dose: 42 mls/hr Levothyroxine Sodium (Synthroid -) 50 mcg PO DAILY@0700 [facility] Last Admin: 03/28/19 06:22 Dose: 50 mcg Metoprolol Succinate (Toprol Xl -) 50 mg PO DAILY [facility] Last Admin: 03/28/19 09:46 Dose: 50 mg Potassium Chloride (K-Dur -) 10 meq PO DAILY [facility] Last Admin: 03/28/19 09:45 Dose: 10 meq Rosuvastatin Calcium (Crestor -) 10 mg PO DAILY [facility] Last Admin: 03/28/19 09:45 Dose: 10 mg Gen: NAD at rest Heart: RRR Lung: decreased breath sounds at the bases, few rhonchi Abd: soft, nontender Ext: no edema Laboratory Results - last 24 hr 03/22/19 03/22/19 03/22/19 10:39 10:39 10:39 WBC 5.9 RBC 2.32 L Hgb 8.6 L Hct 24.5 L D MCV 105.5 H MCH 36.8 H D MCHC 34.9 RDW 17.1 H Plt Count 285 D MPV 6.7 L D Absolute Neuts (auto) 5.4 Neutrophils % 91.0 H Neutrophils % (Manual) 92.0 H Band Neutrophils % 0.0 Lymphocytes % 3.3 L Lymphocytes % (Manual) 3.0 L Monocytes % 5.2 Monocytes % (Manual) 5 Eosinophils % 0.4 Eosinophils % (Manual) 0.0 Basophils % 0.1 Basophils % (Manual) 0.0 Myelocytes % (Man) 0 Promyelocytes % (Man) 0 Blast Cells % (Manual) 0 Nucleated RBC % 0 Metamyelocytes 0 Hypochromia 0 Toxic Granulation 1+ Platelet Estimate Normal Polychromasia 0 Poikilocytosis 0 Anisocytosis 1+ Microcytosis 0 Macrocytosis 1+ Ovalocytes 1+ Stomatocytes 1+ PT with INR INR D-Dimer Sodium 142 Potassium 3.7 Chloride 105 Carbon Dioxide 25 Anion Gap 11 BUN 26.5 H Creatinine 1.6 H Est GFR (CKD-EPI)AfAm 38.52 Est GFR (CKD-EPI)NonAf 33.23 Random Glucose 174 H Calcium 8.6 Magnesium 2.2 Total Bilirubin 1.5 H AST 15 ALT 20 Alkaline Phosphatase 97 Troponin I < 0.02 Total Protein 7.5 Albumin 2.9 L 03/22/19 03/22/19 03/22/19 10:39 10:39 19:32 WBC RBC Hgb Hct MCV MCH MCHC RDW Plt Count MPV Absolute Neuts (auto) Neutrophils % Neutrophils % (Manual) Band Neutrophils % Lymphocytes % Lymphocytes % (Manual) Monocytes % Monocytes % (Manual) Eosinophils % Eosinophils % (Manual) Basophils % Basophils % (Manual) Myelocytes % (Man) Promyelocytes % (Man) Blast Cells % (Manual) Nucleated RBC % Metamyelocytes Hypochromia Toxic Granulation Platelet Estimate Polychromasia Poikilocytosis Anisocytosis Microcytosis Macrocytosis Ovalocytes Stomatocytes PT with INR 45.50 H INR 3.80 H D-Dimer 2162 H Sodium 141 Potassium 3.5 Chloride 107 Carbon Dioxide 24 Anion Gap 11 BUN 25.3 H Creatinine 1.5 H Est GFR (CKD-EPI)AfAm 41.64 Est GFR (CKD-EPI)NonAf 35.93 Random Glucose 127 H Calcium 7.4 L Magnesium Total Bilirubin 1.2 H AST 18 ALT 21 Alkaline Phosphatase 92 Troponin I Total Protein 6.2 L Albumin 2.7 L 03/28/19 03/28/19 08:20 08:20 WBC 5.7 RBC 2.44 L Hgb 8.3 L Hct 24.5 L MCV 100.3 H MCH 33.9 H MCHC 33.8 RDW 18.9 H Plt Count 304 MPV 7.0 L Absolute Neuts (auto) 4.9 Neutrophils % 85.8 H Neutrophils % (Manual) Band Neutrophils % Lymphocytes % 6.1 L D Lymphocytes % (Manual) Monocytes % 5.7 Monocytes % (Manual) Eosinophils % 2.0 Eosinophils % (Manual) Basophils % 0.4 Basophils % (Manual) Myelocytes % (Man) Promyelocytes % (Man) Blast Cells % (Manual) Nucleated RBC % 0 Metamyelocytes Hypochromia Toxic Granulation Platelet Estimate Polychromasia Poikilocytosis Anisocytosis Microcytosis Macrocytosis Ovalocytes Stomatocytes PT with INR INR D-Dimer Sodium 142 Potassium 4.3 Chloride 110 H Carbon Dioxide 25 Anion Gap 8 BUN 12.8 Creatinine 1.1 Est GFR (CKD-EPI)AfAm 60.59 Est GFR (CKD-EPI)NonAf 52.28 Random Glucose 81 Calcium 7.9 L Magnesium Total Bilirubin 0.9 AST 18 ALT 45 Alkaline Phosphatase 81 Troponin I Total Protein 6.0 L Albumin 2.6 L A/P Uterine Ca s/p Hysterectomy/RT Lung Nodule/Mass/Liver Lesion suspect metastatic disease r/o Pneumonia Hemoptysis Atrial Fibrillation HTN Hyperlipidemia Anemia - continue to monitor/quantify hemoptysis - continue antibiotics - Will need outpatient imaging of the Chest for follow up - will need biopsy of lung mass via CT guided needle biopsy - monitor H/H - anticoagulation on hold - DVT prophylaxis Dr Zheng
--- NOTE | 2019-03-28 12:07 | PN.GI ---
GI Progress Note Subjective: No acute events No hemoptysis Dark BM this morning - Objective Vital Signs: Vital Signs Temperature 98.9 F 03/28/19 06:25 Pulse Rate 71 03/28/19 06:25 Respiratory Rate 18 03/28/19 06:25 Blood Pressure 117/64 03/28/19 06:25 O2 Sat by Pulse Oximetry (%) 91 L 03/27/19 21:00 Constitutional: Calm Eyes: No: Sclera Icterus Cardiovascular: Yes: Regular Rate and Rhythm Respiratory: Yes: Rhonchi (fine rhonchi at bases bilaterally) ...Auscultate: Yes: Normoactive Bowel Sounds ...Palpate: Yes: Soft. No: Tenderness Edema: LLE: Trace, RLE: Trace Neurological: Yes: Alert Labs: CBC, BMP 03/28/19 08:20 03/28/19 08:20 INR, PTT INR 3.80 (0.83-1.09) H 03/22/19 10:39 Problem List - Problems (1) Anemia Assessment/Plan: Likely multifactorial. EGD did not reveal upper GI source of bleeding. It did reveal blood in posterior pharynx, likely related to lung pathology. No continued significant hemoptysis reported Plan for Colonoscopy on Saturday to complete GI evaluation Pulmonary and oncology following Code(s): D64.9 - ANEMIA, UNSPECIFIED
[2019-03-28] MEDS ORDERED: FERRIC CARBOXYMALTOSE 750 MG in SODIUM CHLORIDE 250 ML IVPB ONE (19:15)
--- NOTE | 2019-03-28 19:24 | PN ---
Progress Note, Physician History of Present Illness: No complaints. No new events. - Current Medication List Current Medications: Active Medications Acetaminophen (Tylenol -) 650 mg PO Q4H PRN PRN Reason: PAIN OR FEVER Last Admin: 03/23/19 21:36 Dose: 650 mg Albuterol Sulfate (Ventolin 0.083% Nebulizer Soln -) 1 amp NEB Q6H PRN PRN Reason: SHORT OF BREATH/WHEEZING Last Admin: 03/27/19 07:40 Dose: 1 amp Allopurinol (Zyloprim -) 100 mg PO BID [facility] Last Admin: 03/28/19 09:46 Dose: 100 mg Amiodarone HCl (Cordarone -) 200 mg PO DAILY [facility] Last Admin: 03/28/19 09:45 Dose: 200 mg Bacitracin (Bacitracin -) 1 applic TP BID [facility] Last Admin: 03/28/19 09:47 Dose: 1 applic Benzocaine/Menthol (Cepacol Lozenge -) 1 each MM PRN PRN PRN Reason: SORE THROAT Bisacodyl (Dulcolax -) 20 mg PO ONCE ONE Stop: 03/29/19 13:01 Cyanocobalamin (Vitamin B12 -) 1,000 mcg PO DAILY [facility] Last Admin: 03/28/19 09:46 Dose: 1,000 mcg Docusate Sodium (Colace -) 100 mg PO Q8H PRN PRN Reason: CONSTIPATION Last Admin: 03/25/19 14:08 Dose: 100 mg Doxazosin Mesylate (Cardura -) 2 mg PO DAILY [facility] Last Admin: 03/28/19 09:44 Dose: 2 mg Ergocalciferol (Drisdol -) 50,000 unit PO Q7D@1000 [facility] Last Admin: 03/23/19 10:29 Dose: 50,000 unit Folic Acid (Folic Acid -) 1 mg PO DAILY [facility] Last Admin: 03/28/19 09:45 Dose: 1 mg Guaifenesin (Robitussin Dm -) 10 ml PO Q4H PRN PRN Reason: COUGH Last Admin: 03/25/19 14:09 Dose: 10 ml Ceftriaxone Sodium 2 gm/ (Dextrose) 100 mls @ 100 mls/hr IVPB DAILY [facility]; Protocol Last Admin: 03/28/19 10:45 Dose: 100 mls/hr Clindamycin Phosphate (Cleocin 600 Mg Premix Ivpb -) 600 mg in 50 mls @ 100 mls /hr IVPB Q8H-IV [facility]; Protocol Last Admin: 03/28/19 17:11 Dose: 100 mls/hr Sodium Chloride (1/2 Normal Saline) 1,000 mls @ 42 mls/hr IV ASDIR [facility] Last Admin: 03/27/19 09:37 Dose: 42 mls/hr Ferric Carboxymaltose 750 mg/ (Sodium Chloride) 265 mls @ 530 mls/hr IVPB ONCE ONE Stop: 03/28/19 19:44 Levothyroxine Sodium (Synthroid -) 50 mcg PO DAILY@0700 [facility] Last Admin: 03/28/19 06:22 Dose: 50 mcg Metoprolol Succinate (Toprol Xl -) 50 mg PO DAILY [facility] Last Admin: 03/28/19 09:46 Dose: 50 mg Polyethylene Glycol/Electrolytes (Golytely Solution -) 4,000 ml PO ONCE ONE Stop: 03/29/19 14:01 Potassium Chloride (K-Dur -) 10 meq PO DAILY [facility] Last Admin: 03/28/19 09:45 Dose: 10 meq Rosuvastatin Calcium (Crestor -) 10 mg PO DAILY [facility] Last Admin: 03/28/19 09:45 Dose: 10 mg - Objective Vital Signs: Vital Signs Temperature 98.5 F 03/28/19 17:28 Pulse Rate 70 03/28/19 17:28 Respiratory Rate 20 03/28/19 17:28 Blood Pressure 126/76 03/28/19 17:28 O2 Sat by Pulse Oximetry (%) 91 L 03/27/19 21:00 Constitutional: Yes: Well Nourished, No Distress Eyes: Yes: Conjunctiva Clear Cardiovascular: Yes: Regular Rate and Rhythm Respiratory: Yes: Regular, CTA Bilaterally Gastrointestinal: Yes: Soft. No: Tenderness Edema: No Integumentary: Yes: Other (black lesions over nose) Labs: CBC, BMP 03/28/19 08:20 03/28/19 08:20 INR, PTT INR 3.80 (0.83-1.09) H 03/22/19 10:39 Assessment/Plan 68F with endometrial ca (s/p total hysterectomy and b/l oophrectomy w/ radiation ), afib on Xarelto, admitted SOB and dyspnea on exertion. Found to have several left lung masses and lymphadenopathy. Planned for lung bx. Hospital course c/b GIB. EGD yesterday without source of bleeding. Planned for colonoscopy on Mon. Hgb stable today. Also with unexplained blackened nodularity involving nose. Likely needs bx by dermatology.
[2019-03-28] MEDS: SODIUM CHLORIDE 0.45% 1,000 ML IV SCH ×2 (19:39→21:37)
[2019-03-29] MEDS: CLINDAMYCIN 600MG PREMIX IVPB 600 MG/50 ML BAG IVPB SCH ×2 (02:08→10:35)
[2019-03-29] MEDS: LEVOTHYROXINE NA 50 MCG TABLET (FP) PO SCH (06:16)
[2019-03-29 08:05] LABS: HEMATOCRIT 24.8 % (32.4-45.2); HEMOGLOBIN 8.4 GM/dL (10.7-15.3); MCH 33.8 pg (25.7-33.7); MCHC 33.7 g/dl (32.0-36.0); MEAN CELL VOLUME 100.4 fl (80-96); MEAN PLT VOLUME 7.1 fl (7.5-11.1); PLATELET COUNT 304 K/MM3 (134-434); RBC 2.47 M/mm3 (3.60-5.2); RDW 18.7 % (11.6-15.6); WHITE BLOOD COUNT 5.3 K/mm3 (4.0-10.0)
[2019-03-29] MEDS ORDERED: DEXTROSE 5%-WATER 100 ML IVPB ONE (08:55)
[2019-03-29 09:07] LABS: CALCIUM 8.5 mg/dL (8.5-10.1); POTASSIUM 4.2 mmol/L (3.5-5.1)
[2019-03-29] MEDS: CEFTRIAXONE 2 GM in DEXTROSE 5%-WATER 100 ML IVPB SCH (10:34)
[2019-03-29] MEDS: AMIODARONE HCL 200 MG TABLET (FP) PO SCH (10:35)
[2019-03-29] MEDS: CYANOCOBALAMIN 1,000 MCG TABLET (FP) PO SCH (10:35)
[2019-03-29] MEDS: ROSUVASTATIN CA 10 MG TABLET (FP) PO SCH (10:35)
[2019-03-29] MEDS: POTASSIUM CHLORIDE TABS 10 MEQ TABLET.ER (FP) PO SCH (10:35)
[2019-03-29] MEDS: ALLOPURINOL 100 MG TABLET (FP) PO SCH ×2 (10:35→21:39)
[2019-03-29] MEDS: FOLIC ACID 1 MG TABLET (FP) PO SCH (10:35)
[2019-03-29] MEDS: DOXAZOSIN MESYLATE 2 MG TABLET (FP) PO SCH (10:36)
[2019-03-29] MEDS: SODIUM CHLORIDE 0.45% 1,000 ML IV SCH (10:36)
[2019-03-29] MEDS: BACITRACIN 15 GM TUBE TOPICAL OINTMENT TP SCH ×2 (10:37→21:39)
--- NOTE | 2019-03-29 11:01 | PN ---
Progress Note (short form) - Note Progress Note: Breathing feels about the same. Still with CLAROS. No reported hemoptysis overnight. No CP. No acute events overnight. Intake & Output 03/26/19 03/27/19 03/28/19 03/29/19 23:59 23:59 23:59 23:59 Intake Total 9689 116 9253 302 Balance 7818 216 3154 302 Last Vital Signs Temp Pulse Resp BP Pulse Ox 98.6 F 61 18 157/70 91 L 03/29/19 06:32 03/29/19 06:32 03/29/19 06:32 03/29/19 06:32 03/28/19 21:00 Active Medications Acetaminophen (Tylenol -) 650 mg PO Q4H PRN PRN Reason: PAIN OR FEVER Last Admin: 03/23/19 21:36 Dose: 650 mg Albuterol Sulfate (Ventolin 0.083% Nebulizer Soln -) 1 amp NEB Q6H PRN PRN Reason: SHORT OF BREATH/WHEEZING Last Admin: 03/27/19 07:40 Dose: 1 amp Allopurinol (Zyloprim -) 100 mg PO BID [facility] Last Admin: 03/29/19 10:35 Dose: 100 mg Amiodarone HCl (Cordarone -) 200 mg PO DAILY [facility] Last Admin: 03/29/19 10:35 Dose: 200 mg Bacitracin (Bacitracin -) 1 applic TP BID [facility] Last Admin: 03/29/19 10:37 Dose: 1 applic Benzocaine/Menthol (Cepacol Lozenge -) 1 each MM PRN PRN PRN Reason: SORE THROAT Bisacodyl (Dulcolax -) 20 mg PO ONCE ONE Stop: 03/29/19 13:01 Cyanocobalamin (Vitamin B12 -) 1,000 mcg PO DAILY [facility] Last Admin: 03/29/19 10:35 Dose: 1,000 mcg Docusate Sodium (Colace -) 100 mg PO Q8H PRN PRN Reason: CONSTIPATION Last Admin: 03/25/19 14:08 Dose: 100 mg Doxazosin Mesylate (Cardura -) 2 mg PO DAILY [facility] Last Admin: 03/29/19 10:36 Dose: 2 mg Ergocalciferol (Drisdol -) 50,000 unit PO Q7D@1000 [facility] Last Admin: 03/23/19 10:29 Dose: 50,000 unit Folic Acid (Folic Acid -) 1 mg PO DAILY [facility] Last Admin: 03/29/19 10:35 Dose: 1 mg Guaifenesin (Robitussin Dm -) 10 ml PO Q4H PRN PRN Reason: COUGH Last Admin: 03/25/19 14:09 Dose: 10 ml Ceftriaxone Sodium 2 gm/ (Dextrose) 100 mls @ 100 mls/hr IVPB DAILY [facility]; Protocol Last Admin: 03/29/19 10:34 Dose: 100 mls/hr Clindamycin Phosphate (Cleocin 600 Mg Premix Ivpb -) 600 mg in 50 mls @ 100 mls /hr IVPB Q8H-IV [facility]; Protocol Last Admin: 03/29/19 10:35 Dose: 100 mls/hr Sodium Chloride (1/2 Normal Saline) 1,000 mls @ 42 mls/hr IV ASDIR [facility] Last Admin: 03/29/19 10:36 Dose: Not Given Levothyroxine Sodium (Synthroid -) 50 mcg PO DAILY@0700 [facility] Last Admin: 03/29/19 06:16 Dose: 50 mcg Metoprolol Succinate (Toprol Xl -) 50 mg PO DAILY [facility] Last Admin: 03/29/19 10:35 Dose: 50 mg Polyethylene Glycol/Electrolytes (Golytely Solution -) 4,000 ml PO ONCE ONE Stop: 03/29/19 14:01 Potassium Chloride (K-Dur -) 10 meq PO DAILY [facility] Last Admin: 03/29/19 10:35 Dose: 10 meq Rosuvastatin Calcium (Crestor -) 10 mg PO DAILY [facility] Last Admin: 03/29/19 10:35 Dose: 10 mg Gen: NAD at rest Heart: RRR Lung: decreased breath sounds at the bases, few rhonchi Abd: soft, nontender Ext: no edema Laboratory Results - last 24 hr 03/23/19 03/29/19 03/29/19 11:25 07:10 07:10 WBC 5.3 RBC 2.47 L Hgb 8.4 L Hct 24.8 L MCV 100.4 H MCH 33.8 H MCHC 33.7 RDW 18.7 H Plt Count 304 MPV 7.1 L Sodium 143 Potassium 4.2 Chloride 112 H Carbon Dioxide 22 Anion Gap 9 BUN 10.0 Creatinine 1.0 Est GFR (CKD-EPI)AfAm 67.99 Est GFR (CKD-EPI)NonAf 58.66 Random Glucose 89 Calcium 8.5 Blood Type O POSITIVE Antibody Screen Negative Crossmatch See Detail A/P Uterine Ca s/p Hysterectomy/RT Lung Nodule/Mass/Liver Lesion suspect metastatic disease r/o Pneumonia Hemoptysis Atrial Fibrillation HTN Hyperlipidemia Anemia - continue to monitor/quantify hemoptysis - continue antibiotics - Will need PET - will need biopsy of lung mass via CT guided needle biopsy - monitor H/H - anticoagulation on hold - DVT prophylaxis Dr Zheng
[2019-03-29] MEDS ORDERED: BISACODYL 5 MG TABLET.DR (FP) PO ONE (13:00)
[2019-03-29] MEDS ORDERED: PEG 3350/NA SULF BICARB CL/KCL 4000 ML SOLN.RECON PO ONE (14:00)
--- NOTE | 2019-03-29 14:48 | PN ---
Progress Note, Physician Chief Complaint: AWAKE ALERT FEELING BETTER TODAY - Current Medication List Current Medications: Active Medications Acetaminophen (Tylenol -) 650 mg PO Q4H PRN PRN Reason: PAIN OR FEVER Last Admin: 03/23/19 21:36 Dose: 650 mg Albuterol Sulfate (Ventolin 0.083% Nebulizer Soln -) 1 amp NEB Q6H PRN PRN Reason: SHORT OF BREATH/WHEEZING Last Admin: 03/27/19 07:40 Dose: 1 amp Allopurinol (Zyloprim -) 100 mg PO BID [facility] Last Admin: 03/29/19 10:35 Dose: 100 mg Amiodarone HCl (Cordarone -) 200 mg PO DAILY [facility] Last Admin: 03/29/19 10:35 Dose: 200 mg Bacitracin (Bacitracin -) 1 applic TP BID [facility] Last Admin: 03/29/19 10:37 Dose: 1 applic Benzocaine/Menthol (Cepacol Lozenge -) 1 each MM PRN PRN PRN Reason: SORE THROAT Cyanocobalamin (Vitamin B12 -) 1,000 mcg PO DAILY [facility] Last Admin: 03/29/19 10:35 Dose: 1,000 mcg Docusate Sodium (Colace -) 100 mg PO Q8H PRN PRN Reason: CONSTIPATION Last Admin: 03/25/19 14:08 Dose: 100 mg Doxazosin Mesylate (Cardura -) 2 mg PO DAILY [facility] Last Admin: 03/29/19 10:36 Dose: 2 mg Ergocalciferol (Drisdol -) 50,000 unit PO Q7D@1000 [facility] Last Admin: 03/23/19 10:29 Dose: 50,000 unit Folic Acid (Folic Acid -) 1 mg PO DAILY [facility] Last Admin: 03/29/19 10:35 Dose: 1 mg Guaifenesin (Robitussin Dm -) 10 ml PO Q4H PRN PRN Reason: COUGH Last Admin: 03/25/19 14:09 Dose: 10 ml Ceftriaxone Sodium 2 gm/ (Dextrose) 100 mls @ 100 mls/hr IVPB DAILY [facility]; Protocol Last Admin: 03/29/19 10:34 Dose: 100 mls/hr Clindamycin Phosphate (Cleocin 600 Mg Premix Ivpb -) 600 mg in 50 mls @ 100 mls /hr IVPB Q8H-IV [facility]; Protocol Last Admin: 03/29/19 10:35 Dose: 100 mls/hr Sodium Chloride (1/2 Normal Saline) 1,000 mls @ 42 mls/hr IV ASDIR [facility] Last Admin: 03/29/19 10:36 Dose: Not Given Levothyroxine Sodium (Synthroid -) 50 mcg PO DAILY@0700 [facility] Last Admin: 03/29/19 06:16 Dose: 50 mcg Metoprolol Succinate (Toprol Xl -) 50 mg PO DAILY [facility] Last Admin: 03/29/19 10:35 Dose: 50 mg Potassium Chloride (K-Dur -) 10 meq PO DAILY [facility] Last Admin: 03/29/19 10:35 Dose: 10 meq Rosuvastatin Calcium (Crestor -) 10 mg PO DAILY [facility] Last Admin: 03/29/19 10:35 Dose: 10 mg - Objective Vital Signs: Vital Signs Temperature 98.6 F 03/29/19 06:32 Pulse Rate 61 03/29/19 06:32 Respiratory Rate 18 03/29/19 06:32 Blood Pressure 157/70 03/29/19 06:32 O2 Sat by Pulse Oximetry (%) 91 L 03/28/19 21:00 Constitutional: Yes: No Distress HENT: Yes: Other (NASAL LESION IMPROVING) Cardiovascular: Yes: Regular Rate and Rhythm Respiratory: Yes: WNL Gastrointestinal: Yes: Soft, Abdomen, Obese Genitourinary: Yes: WNL Musculoskeletal: Yes: Muscle Weakness Integumentary: Yes: Venous Stasis Changes Neurological: Yes: Pre-Existing Deficit Labs: CBC, BMP 03/29/19 07:10 03/29/19 07:10 INR, PTT INR 3.80 (0.83-1.09) H 03/22/19 10:39 Problem List - Problems (1) GI bleed Code(s): K92.2 - GASTROINTESTINAL HEMORRHAGE, UNSPECIFIED (2) Lung mass Code(s): R91.8 - OTHER NONSPECIFIC ABNORMAL FINDING OF LUNG FIELD (3) Skin abnormality Code(s): L98.9 - DISORDER OF THE SKIN AND SUBCUTANEOUS TISSUE, UNSPECIFIED (4) Nasal abrasion Code(s): S00.31XA - ABRASION OF NOSE, INITIAL ENCOUNTER (5) Afib Code(s): I48.91 - UNSPECIFIED ATRIAL FIBRILLATION (6) Anemia Code(s): D64.9 - ANEMIA, UNSPECIFIED (7) HLD (hyperlipidemia) Code(s): E78.5 - HYPERLIPIDEMIA, UNSPECIFIED (8) HTN (hypertension) Code(s): I10 - ESSENTIAL (PRIMARY) HYPERTENSION Assessment/Plan EGD REVIEWED EGD NO ACTIVE BLEEDS COLONOSCOPY SATURDAY. NEED A BIOPSY OF THE NASAL AREA R/O NEOPLASM BACITRACIN OINTMENT FOR NOW. WILL D/W DERMATOLOGY ENT CONSULT FOR EGD FINDINGS. LUNG BIOPSY PENDING IV ABX LUZ/CEFTRIAXONE IV, ID FOLLOW UP OOB TO CHAIR ONCOLOGY WORKUP APPRECIATED TRANSFUSE PRBC NEEDED
[2019-03-29] MEDS: SODIUM CHLORIDE 1,000 ML IV SCH (16:06)
--- NOTE | 2019-03-29 19:27 | PN ---
Progress Note, Physician History of Present Illness: No complaints. No new events. Denies SOB - Current Medication List Current Medications: Active Medications Acetaminophen (Tylenol -) 650 mg PO Q4H PRN PRN Reason: PAIN OR FEVER Last Admin: 03/23/19 21:36 Dose: 650 mg Albuterol Sulfate (Ventolin 0.083% Nebulizer Soln -) 1 amp NEB Q6H PRN PRN Reason: SHORT OF BREATH/WHEEZING Last Admin: 03/27/19 07:40 Dose: 1 amp Allopurinol (Zyloprim -) 100 mg PO BID [facility] Last Admin: 03/29/19 10:35 Dose: 100 mg Amiodarone HCl (Cordarone -) 200 mg PO DAILY [facility] Last Admin: 03/29/19 10:35 Dose: 200 mg Bacitracin (Bacitracin -) 1 applic TP BID [facility] Last Admin: 03/29/19 10:37 Dose: 1 applic Benzocaine/Menthol (Cepacol Lozenge -) 1 each MM PRN PRN PRN Reason: SORE THROAT Cyanocobalamin (Vitamin B12 -) 1,000 mcg PO DAILY [facility] Last Admin: 03/29/19 10:35 Dose: 1,000 mcg Docusate Sodium (Colace -) 100 mg PO Q8H PRN PRN Reason: CONSTIPATION Last Admin: 03/25/19 14:08 Dose: 100 mg Doxazosin Mesylate (Cardura -) 2 mg PO DAILY [facility] Last Admin: 03/29/19 10:36 Dose: 2 mg Ergocalciferol (Drisdol -) 50,000 unit PO Q7D@1000 [facility] Last Admin: 03/23/19 10:29 Dose: 50,000 unit Folic Acid (Folic Acid -) 1 mg PO DAILY [facility] Last Admin: 03/29/19 10:35 Dose: 1 mg Guaifenesin (Robitussin Dm -) 10 ml PO Q4H PRN PRN Reason: COUGH Last Admin: 03/25/19 14:09 Dose: 10 ml Sodium Chloride (Normal Saline -) 1,000 mls @ 83 mls/hr IV ASDIR [facility] Last Admin: 03/29/19 16:06 Dose: 83 mls/hr Levothyroxine Sodium (Synthroid -) 50 mcg PO DAILY@0700 [facility] Last Admin: 03/29/19 06:16 Dose: 50 mcg Metoprolol Succinate (Toprol Xl -) 50 mg PO DAILY [facility] Last Admin: 03/29/19 10:35 Dose: 50 mg Potassium Chloride (K-Dur -) 10 meq PO DAILY [facility] Last Admin: 03/29/19 10:35 Dose: 10 meq Rosuvastatin Calcium (Crestor -) 10 mg PO DAILY [facility] Last Admin: 03/29/19 10:35 Dose: 10 mg - Objective Vital Signs: Vital Signs Temperature 97.6 F 03/29/19 17:20 Pulse Rate 79 03/29/19 17:20 Respiratory Rate 20 03/29/19 17:20 Blood Pressure 152/68 03/29/19 17:20 O2 Sat by Pulse Oximetry (%) 91 L 03/28/19 21:00 Constitutional: Yes: Well Nourished, No Distress Cardiovascular: Yes: Regular Rate and Rhythm Respiratory: Yes: Regular, CTA Bilaterally Edema: No Labs: CBC, BMP 03/29/19 07:10 03/29/19 07:10 INR, PTT INR 3.80 (0.83-1.09) H 03/22/19 10:39 Assessment/Plan 68F with endometrial ca (s/p total hysterectomy and b/l oophrectomy w/ radiation ), afib on Xarelto, admitted SOB and dyspnea on exertion. Found to have several left lung masses and lymphadenopathy. Planned for lung bx. Hospital course c/b GIB. EGD yesterday without source of bleeding. Planned for colonoscopy on Mon. Hgb stable today. Also with unexplained blackened nodularity involving nose. Likely needs bx by dermatology.
[2019-03-30] MEDS: LEVOTHYROXINE NA 50 MCG TABLET (FP) PO SCH (06:30)
[2019-03-30 08:46] LABS: BASO % 0.7 % (0-2.0); EOS % 2.9 % (0-4.5); HEMATOCRIT 24.9 % (32.4-45.2); HEMOGLOBIN 8.4 GM/dL (10.7-15.3); LYMPH % 5.9 % (8-40); MCH 33.8 pg (25.7-33.7); MCHC 33.9 g/dl (32.0-36.0); MEAN CELL VOLUME 99.8 fl (80-96); MEAN PLT VOLUME 7.2 fl (7.5-11.1); MONO % 5.1 % (3.8-10.2); NEUT % 85.4 % (42.8-82.8); PLATELET COUNT 296 K/MM3 (134-434); RDW 18.5 % (11.6-15.6); WHITE BLOOD COUNT 4.9 K/mm3 (4.0-10.0)
--- NOTE | 2019-03-30 09:12 | PN ---
Progress Note (short form) - Note Progress Note: Breathing feels a little better today. Slept well. No reported hemoptysis overnight. No CP. No acute events overnight. Intake & Output 03/27/19 03/28/19 03/29/19 03/30/19 23:59 23:59 23:59 23:59 Intake Total 605 4 1884 610 Balance 605 4 1884 610 Last Vital Signs Temp Pulse Resp BP Pulse Ox 98.2 F 70 18 137/56 L 94 L 03/30/19 08:00 03/30/19 08:00 03/30/19 08:00 03/30/19 08:00 03/29/19 21:00 Active Medications Acetaminophen (Tylenol -) 650 mg PO Q4H PRN PRN Reason: PAIN OR FEVER Last Admin: 03/23/19 21:36 Dose: 650 mg Albuterol Sulfate (Ventolin 0.083% Nebulizer Soln -) 1 amp NEB Q6H PRN PRN Reason: SHORT OF BREATH/WHEEZING Last Admin: 03/27/19 07:40 Dose: 1 amp Allopurinol (Zyloprim -) 100 mg PO BID [facility] Last Admin: 03/29/19 21:39 Dose: 100 mg Amiodarone HCl (Cordarone -) 200 mg PO DAILY [facility] Last Admin: 03/29/19 10:35 Dose: 200 mg Bacitracin (Bacitracin -) 1 applic TP BID [facility] Last Admin: 03/29/19 21:39 Dose: 1 applic Benzocaine/Menthol (Cepacol Lozenge -) 1 each MM PRN PRN PRN Reason: SORE THROAT Cyanocobalamin (Vitamin B12 -) 1,000 mcg PO DAILY [facility] Last Admin: 03/29/19 10:35 Dose: 1,000 mcg Docusate Sodium (Colace -) 100 mg PO Q8H PRN PRN Reason: CONSTIPATION Last Admin: 03/25/19 14:08 Dose: 100 mg Doxazosin Mesylate (Cardura -) 2 mg PO DAILY [facility] Last Admin: 03/29/19 10:36 Dose: 2 mg Ergocalciferol (Drisdol -) 50,000 unit PO Q7D@1000 [facility] Last Admin: 03/23/19 10:29 Dose: 50,000 unit Folic Acid (Folic Acid -) 1 mg PO DAILY [facility] Last Admin: 03/29/19 10:35 Dose: 1 mg Guaifenesin (Robitussin Dm -) 10 ml PO Q4H PRN PRN Reason: COUGH Last Admin: 03/25/19 14:09 Dose: 10 ml Sodium Chloride (Normal Saline -) 1,000 mls @ 83 mls/hr IV ASDIR [facility] Last Admin: 03/29/19 16:06 Dose: 83 mls/hr Levothyroxine Sodium (Synthroid -) 50 mcg PO DAILY@0700 [facility] Last Admin: 03/30/19 06:30 Dose: 50 mcg Metoprolol Succinate (Toprol Xl -) 50 mg PO DAILY [facility] Last Admin: 03/29/19 10:35 Dose: 50 mg Potassium Chloride (K-Dur -) 10 meq PO DAILY [facility] Last Admin: 03/29/19 10:35 Dose: 10 meq Rosuvastatin Calcium (Crestor -) 10 mg PO DAILY [facility] Last Admin: 03/29/19 10:35 Dose: 10 mg Gen: NAD at rest Heart: RRR Lung: decreased breath sounds at the bases, few rhonchi Abd: soft, nontender Ext: no edema Laboratory Results - last 24 hr 03/29/19 03/30/19 07:10 07:33 WBC 4.9 RBC 2.50 L Hgb 8.4 L Hct 24.9 L MCV 99.8 H MCH 33.8 H MCHC 33.9 RDW 18.5 H Plt Count 296 MPV 7.2 L Absolute Neuts (auto) 4.2 Neutrophils % 85.4 H Lymphocytes % 5.9 L Monocytes % 5.1 Eosinophils % 2.9 Basophils % 0.7 Nucleated RBC % 0 Creatinine 1.0 Est GFR (CKD-EPI)AfAm 67.99 Est GFR (CKD-EPI)NonAf 58.66 A/P Uterine Ca s/p Hysterectomy/RT Lung Nodule/Mass/Liver Lesion suspect metastatic disease r/o Pneumonia Hemoptysis Atrial Fibrillation HTN Hyperlipidemia Anemia - continue to monitor/quantify hemoptysis - continue antibiotics - Will need PET - will need biopsy of lung mass via CT guided needle biopsy: Patient considering outpatient workup - monitor H/H - anticoagulation on hold - DVT prophylaxis - Will need Pre and Post ambulation O2 saturation check prior to DC Dr Zheng
[2019-03-30] MEDS: BACITRACIN 15 GM TUBE TOPICAL OINTMENT TP SCH ×2 (10:28→22:07)
[2019-03-30] MEDS: ROSUVASTATIN CA 10 MG TABLET (FP) PO SCH (10:29)
[2019-03-30] MEDS: AMIODARONE HCL 200 MG TABLET (FP) PO SCH (10:29)
[2019-03-30] MEDS: POTASSIUM CHLORIDE TABS 10 MEQ TABLET.ER (FP) PO SCH (10:29)
[2019-03-30] MEDS: DOXAZOSIN MESYLATE 2 MG TABLET (FP) PO SCH (10:32)
[2019-03-30] MEDS ORDERED: PT OWN MED DRAWER 7, Y5N ONE ×2 (10:32→20:19)
[2019-03-30] MEDS: ERGOCALCIFEROL (VIT D2) 50,000 UNIT (1.25 MG) CAPSULE PO SCH (10:33)
[2019-03-30] MEDS: FOLIC ACID 1 MG TABLET (FP) PO SCH (10:33)
[2019-03-30] MEDS: ALLOPURINOL 100 MG TABLET (FP) PO SCH ×2 (10:33→22:08)
[2019-03-30] MEDS: CYANOCOBALAMIN 1,000 MCG TABLET (FP) PO SCH (10:33)
[2019-03-30 11:15] LABS: INR 1.36 (0.83-1.09); PROTHROMBIN TIME (PATIENT) 16.1 SEC (9.7-13.0)
[2019-03-30] MEDS ORDERED: ETOMIDATE 20 MG/10 ML AMPUL IVPUSH ONE (12:09)
[2019-03-30] MEDS ORDERED: IRON SUCROSE INJECTION 300 MG in SODIUM CHLORIDE 235 ML IVPB ONE (14:59)
--- NOTE | 2019-03-30 15:00 | PN ---
Progress Note, Physician Chief Complaint: patient just came back from colonscopy wants to eat on nasal oxygen - Current Medication List Current Medications: Active Medications Acetaminophen (Tylenol -) 650 mg PO Q4H PRN PRN Reason: PAIN OR FEVER Last Admin: 03/23/19 21:36 Dose: 650 mg Albuterol Sulfate (Ventolin 0.083% Nebulizer Soln -) 1 amp NEB Q6H PRN PRN Reason: SHORT OF BREATH/WHEEZING Last Admin: 03/27/19 07:40 Dose: 1 amp Allopurinol (Zyloprim -) 100 mg PO BID [facility] Last Admin: 03/30/19 10:33 Dose: Not Given Amiodarone HCl (Cordarone -) 200 mg PO DAILY [facility] Last Admin: 03/30/19 10:29 Dose: 200 mg Bacitracin (Bacitracin -) 1 applic TP BID [facility] Last Admin: 03/30/19 10:28 Dose: 1 applic Benzocaine/Menthol (Cepacol Lozenge -) 1 each MM PRN PRN PRN Reason: SORE THROAT Cyanocobalamin (Vitamin B12 -) 1,000 mcg PO DAILY [facility] Last Admin: 03/30/19 10:33 Dose: Not Given Docusate Sodium (Colace -) 100 mg PO Q8H PRN PRN Reason: CONSTIPATION Last Admin: 03/25/19 14:08 Dose: 100 mg Doxazosin Mesylate (Cardura -) 2 mg PO DAILY [facility] Last Admin: 03/30/19 10:32 Dose: 2 mg Ergocalciferol (Drisdol -) 50,000 unit PO Q7D@1000 [facility] Last Admin: 03/30/19 10:33 Dose: Not Given Folic Acid (Folic Acid -) 1 mg PO DAILY [facility] Last Admin: 03/30/19 10:33 Dose: Not Given Guaifenesin (Robitussin Dm -) 10 ml PO Q4H PRN PRN Reason: COUGH Last Admin: 03/25/19 14:09 Dose: 10 ml Sodium Chloride (Normal Saline -) 1,000 mls @ 83 mls/hr IV ASDIR [facility] Last Admin: 03/29/19 16:06 Dose: 83 mls/hr Levothyroxine Sodium (Synthroid -) 75 mcg PO DAILY@0700 [facility] Metoprolol Succinate (Toprol Xl -) 50 mg PO DAILY [facility] Last Admin: 03/30/19 10:29 Dose: 50 mg Potassium Chloride (K-Dur -) 10 meq PO DAILY [facility] Last Admin: 03/30/19 10:29 Dose: 10 meq Rosuvastatin Calcium (Crestor -) 10 mg PO DAILY [facility] Last Admin: 03/30/19 10:29 Dose: 10 mg - Objective Vital Signs: Vital Signs Temperature 98.3 F 03/30/19 12:38 Pulse Rate 55 L 03/30/19 13:09 Respiratory Rate 21 H 03/30/19 13:09 Blood Pressure 150/68 03/30/19 13:09 O2 Sat by Pulse Oximetry (%) 93 L 03/30/19 13:09 Constitutional: Yes: Calm HENT: Yes: Other (nasal swelling with dried blood on nares) Neck: Yes: Other Cardiovascular: Yes: Regular Rate and Rhythm, S1, S2 Respiratory: Yes: CTA Bilaterally, On Nasal O2 Gastrointestinal: Yes: Normal Bowel Sounds, Soft Neurological: Yes: Alert Labs: CBC, BMP 03/30/19 07:33 03/29/19 07:10 INR, PTT INR 1.36 (0.83-1.09) H 03/30/19 10:50 Problem List - Problems (1) Nasal abrasion Assessment/Plan: ENT for nasal swelling Derm for possible nasal biospy on oxygen check pre and post to see if qualify for home oxygen Code(s): S00.31XA - ABRASION OF NOSE, INITIAL ENCOUNTER (2) Anemia Assessment/Plan: s/p EGD and colonscopy s/p PRBC h/h stable polys noted on colonoscopy iron panel noted venofer ordered Code(s): D64.9 - ANEMIA, UNSPECIFIED (3) Hypothyroid Assessment/Plan: tsh elevated dose increased to 75mcg recheck in 4 weeks Code(s): E03.9 - HYPOTHYROIDISM, UNSPECIFIED
[2019-03-30] MEDS: SODIUM CHLORIDE 1,000 ML IV SCH (18:16)
--- NOTE | 2019-03-30 18:36 | CON.ENT ---
Consult Consult Specialty:: ENT Referred by:: Dr. Mariaelena Cummings Reason for Consultation:: nasal swelling - History of Present Illness Chief Complaint: nasal lesions History of Present Illness: 68 yo F admitted with shortness of breath hx endometrial carcinoma, also lung lesions found, lung biopsy planned hx weight loss, blood in stool, underwnet colonoscopy, polyps removed (tubular adenoma) also EGD performed, dx sliding hiatal hernia, gastritis noted nasal pimples initiallyt they were slightly darker than usual, then became more swollen nasal tip and left alar lesions rx antibiotics now topical reports significant improvement since onset smell sense ok, not noticing any bleeding - History Source History Provided By: Patient, Medical Record Limitations to Obtaining History: No Limitations - Past Medical History Cardio/Vascular: Yes: AFIB, HTN, Hyperlipdemia Renal/: Yes: Other (Kidney Metastasis) Endocrine: Yes: Hypothyroidism - Past Surgical History Past Surgical History: Yes: Hysterectomy - Alcohol/Substance Use Hx Alcohol Use: Yes Number of Drinks Daily: 2 - Smoking History Smoking history: Former smoker Have you smoked in the past 12 months: No Aproximately how many cigarettes per day: 20 If you are a former smoker, when did you quit?: 28 years ago - Social History Usual Living Arrangement: With Spouse ADL: Independent History of Recent Travel: No Home Medications - Allergies Allergies/Adverse Reactions: Allergies Allergy/AdvReac Type Severity Reaction Status Date / Time Penicillins Allergy Verified 04/14/19 10:33 - Home Medications Home Medications: Ambulatory Orders Allopurinol [Zyloprim -] 100 mg PO BID 03/22/19 Amiodarone HCl 200 mg PO DAILY 03/22/19 Cyanocobalamin (Vitamin B-12) [Vitamin B-12] 1,000 mcg PO DAILY 03/22/19 Doxazosin Mesylate 2 mg PO DAILY 03/22/19 Ergocalciferol (Vitamin D2) [Vitamin D2] 1 cap PO WEEKLY 03/22/19 Ergocalciferol (Vitamin D2) [Vitamin D2] 50,000 unit PO WEEKLY 03/22/19 Folic Acid - 1 mg PO DAILY 03/22/19 [place]-3/Dha/Epa/Fish Oil [[place] 3 500 Softgel] 350 mg PO DAILY 03/22/19 Potassium Chloride [Klor-Con M10] 10 mg PO DAILY 03/22/19 Rivaroxaban [Xarelto -] 20 mg PO DAILY 03/22/19 Rosuvastatin Calcium 10 mg PO DAILY 03/22/19 Acetaminophen [Tylenol .Regular Strength -] 650 mg PO Q4H PRN tablet 03/31/19 Albuterol 0.083% Nebulizer Bertha [Ventolin 0.083% Nebulizer Soln -] 1 amp NEB Q6H PRN #120 amp 03/31/19 Bacitracin - [Bacitracin Topical Ointment -] 1 applic TP BID #30 gr 03/31/19 Docusate Sodium [Colace -] 100 mg PO Q8H PRN capsule 03/31/19 Guaifenesin Dm [Robitussin Dm -] 10 ml PO Q4H PRN cup 03/31/19 Levothyroxine [Synthroid -] 75 mcg PO DAILY@0700 #30 tablet 03/31/19 Metoprolol Succinate [Toprol XL -] 50 mg PO DAILY #30 tab.sr.24h 03/31/19 Physical Exam-ENT Vital Signs: Vital Signs Temperature 98.3 F 03/30/19 16:20 Pulse Rate 76 03/30/19 16:20 Respiratory Rate 18 03/30/19 16:20 Blood Pressure 135/57 L 03/30/19 16:20 O2 Sat by Pulse Oximetry (%) 93 L 03/30/19 13:09 Constitutional: Yes: Well Nourished, No Distress, Calm Head: Yes: WNL Eyes: Yes: WNL Nose: Yes: Other (external nose crusted scabbed tip and left ala, skin not erythematous) Nasal Passage: Yes: WNL (nasal endoscopy: nasal septum mild deviation to left infeirorly, sl blod right superior septum, no pus or polyp, inferior turbinates mildly hypertrophic, middle turbinates and meati WNL, superior turbinates and meati not visualized, sphenoethmoid recesses not well visualized) Oral/Pharynx: Yes: WNL Outer Ear: Yes: WNL Ear Canal: Yes: WNL Tympanic Membrane: Yes: WNL Neck: Yes: WNL Imaging - Results Chest X-ray: Report Reviewed Problem List - Problems (1) Nasal abrasion Assessment/Plan: pt had nasal tip and left alar nasal lesions, initially appearance like pimples , was worse, now improved with antibiotic treatment presently appears like scabbed skin without surrounding cellulitis will need to assess skin appearance after crusting/scabbing gone. has deviation of septum and inferior turbinate hypertrophy, mild congestion, no evidence of sinusitis on nasal endoscopy Recommend continue Bacitracin daily to bid to office after discharge for follow-up Thank you for consultation, Messi Up MD FACS Code(s): S00.31XA - ABRASION OF NOSE, INITIAL ENCOUNTER Qualifiers: Encounter type: initial encounter Qualified Code(s): S00.31XA - Abrasion of nose, initial encounter
--- NOTE | 2019-03-31 06:25 | PN ---
Progress Note (short form) - Note Progress Note: PAtient seen and examined Denies any specific complaints AFVSS Cor: RSR, No murmurs, No gallops Lungs: Clear to P&A Abd: Soft, Normal bowel sounds, No organomegaly Ext:No significant edema Labs/Meds reviewed A/P 68F with endometrial ca , endometroid, with cervical stromal invason, stge II (s /p total hysterectomy and b/l oophrectomy w/ radiation), afib on Xarelto, admitted SOB and dyspnea on exertion. Found to have several left lung masses and lymphadenopathy. Planned for lung bx. Hospital course c/b GIB. EGD without source of bleeding. Colonoscopy --polyps To return to primary oncologist at [facility] to consider lung biopsy and treatment Discussed with patient --she is to follow up with primary oncology team
[2019-03-31] MEDS ORDERED: LEVOTHYROXINE NA 75 MCG TABLET (FP) PO SCH (07:00)
[2019-03-31 07:18] LABS: BASO % 0.5 % (0-2.0); EOS % 2.6 % (0-4.5); HEMATOCRIT 27.9 % (32.4-45.2); HEMOGLOBIN 9.2 GM/dL (10.7-15.3); LYMPH % 6.6 % (8-40); MCH 33.6 pg (25.7-33.7); MEAN CELL VOLUME 101.7 fl (80-96); MEAN PLT VOLUME 7.3 fl (7.5-11.1); MONO % 4.5 % (3.8-10.2); NEUT % 85.8 % (42.8-82.8); PLATELET COUNT 318 K/MM3 (134-434); RBC 2.75 M/mm3 (3.60-5.2); RDW 18.4 % (11.6-15.6); WHITE BLOOD COUNT 6.2 K/mm3 (4.0-10.0)
[2019-03-31 07:32] LABS: INR 1.24 (0.83-1.09); PROTHROMBIN TIME (PATIENT) 14.7 SEC (9.7-13.0)
[2019-03-31 07:35] LABS: ACTIVATED PTT 38.9 SECONDS (25.2-36.5)
--- NOTE | 2019-03-31 08:17 | DS ---
Physical Examination Vital Signs: Vital Signs Temperature 98.4 F 03/31/19 06:00 Pulse Rate 69 03/31/19 06:00 Respiratory Rate 18 03/31/19 06:00 Blood Pressure 148/79 03/31/19 06:00 O2 Sat by Pulse Oximetry (%) 93 L 03/30/19 21:00 Cardiovascular: Yes: S1, S2 Respiratory: Yes: CTA Bilaterally, On Nasal O2 Gastrointestinal: Yes: Normal Bowel Sounds, Soft Labs: CBC, BMP 03/31/19 06:20 03/29/19 07:10 Discharge Summary Problems reviewed: Yes Reason For Visit: PNEUMONIA Current Active Problems Afib (Acute) Anemia (Acute) GI bleed (Acute) HLD (hyperlipidemia) (Acute) HTN (hypertension) (Acute) Hypothyroid (Acute) Liver lesion (Acute) Lung mass (Acute) Nasal abrasion (Acute) Pneumonia (Acute) SOB (shortness of breath) (Acute) Skin abnormality (Acute) Uterine cancer (Acute) Hospital Course: - Problems (1) Afib Assessment/Plan: -Xarelto on hold-Resume once cleared by GI -Amiodarone -metoprolol 50 -cardio on board Code(s): I48.91 - UNSPECIFIED ATRIAL FIBRILLATION (2) HTN (hypertension) Assessment/Plan: -low Na diet -Cardura Code(s): I10 - ESSENTIAL (PRIMARY) HYPERTENSION (3) Uterine cancer Assessment/Plan: -Oncology consult -last RT 1 month ago -Radiation Oncology on board Code(s): C55 - MALIGNANT NEOPLASM OF UTERUS, PART UNSPECIFIED (4) SOB (shortness of breath) Assessment/Plan: -Improved -Pulm Consult -Bronchodilators -O2 via NC--pre and post -Lasix -Chest CT scan shows 2.2 x 2.1cm subpleural mass MADHAVI anterolaterally, LLL mass measuring 4.4 x 7.1cm, prominence of interstitial markings within the left base suggesting fluid or lymphangitic spread, 5.8mm nodule noted within the lateral segment of the right middle lobe, small effusion on the left, trace effusion on the right, left hilar adenopathy measuring 1.8cm, pretracheal lymph node measuring 5mm, 1.8 x 1.8 low-density lesion segment IVb of the liver is noted Code(s): R06.02 - SHORTNESS OF BREATH (5) Pneumonia Assessment/Plan: -Pulm Consult -Bronchodilators -O2 via NC -Chest CT scan shows 2.2 x 2.1cm subpleural mass MADHAVI anterolaterally, LLL mass measuring 4.4 x 7.1cm, prominence of interstitial markings within the left base suggesting fluid or lymphangitic spread, 5.8mm nodule noted within the lateral segment of the right middle lobe, small effusion on the left, trace effusion on the right, left hilar adenopathy measuring 1.8cm, pretracheal lymph node measuring 5mm, 1.8 x 1.8 low-density lesion segment IVb of the liver is noted-- Will need pet scan and biopsy as outpatient -ID consult -no leukocytosis -low grade temps -Ceftriaxone and CLindamycin -BC pending -Urine Legiionella pending Code(s): J18.9 - PNEUMONIA, UNSPECIFIED ORGANISM Qualifiers: Pneumonia type: due to unspecified organism Laterality: left Lung location: lower lobe of lung Qualified Code(s): J18.1 - Lobar pneumonia, unspecified organism (6) HLD (hyperlipidemia) Assessment/Plan: -Rosuvastatin Code(s): E78.5 - HYPERLIPIDEMIA, UNSPECIFIED (7) Anemia Assessment/Plan: -Hg 8.2 -s/p PRBC transfusion yesterday -monitor Hg daily -transfuse for Hg <7.0 -Stool OB positive -iron panel -patient taking Xareltyo for Afib, will need to speak with cardiology in regard to risk vs benefits of holding medication due to anemia and now positive Stool OB -GI on board Code(s): D64.9 - ANEMIA, UNSPECIFIED (8) Liver lesion Assessment/Plan: -GI consult noted -Abdominal US Code(s): K76.9 - LIVER DISEASE, UNSPECIFIED Condition: Improved - Instructions Referrals: Rosy Zhou MD [Primary Care Provider] - 1 Week - Home Medications Comprehensive Discharge Medication List: Ambulatory Orders Allopurinol [Zyloprim -] 100 mg PO BID 03/22/19 Amiodarone HCl 200 mg PO DAILY 03/22/19 Cyanocobalamin (Vitamin B-12) [Vitamin B-12] 1,000 mcg PO DAILY 03/22/19 Doxazosin Mesylate 2 mg PO DAILY 03/22/19 Ergocalciferol (Vitamin D2) [Vitamin D2] 1 cap PO WEEKLY 03/22/19 Ergocalciferol (Vitamin D2) [Vitamin D2] 50,000 unit PO WEEKLY 03/22/19 Folic Acid - 1 mg PO DAILY 03/22/19 [place]-3/Dha/Epa/Fish Oil [[place] 3 500 Softgel] 350 mg PO DAILY 03/22/19 Potassium Chloride [Klor-Con M10] 10 mg PO DAILY 03/22/19 Rivaroxaban [Xarelto -] 20 mg PO DAILY 03/22/19 Rosuvastatin Calcium 10 mg PO DAILY 03/22/19 Acetaminophen [Tylenol .Regular Strength -] 650 mg PO Q4H PRN tablet 03/31/19 Albuterol 0.083% Nebulizer Bertha [Ventolin 0.083% Nebulizer Soln -] 1 amp NEB Q6H PRN #120 amp 03/31/19 Bacitracin - [Bacitracin Topical Ointment -] 1 applic TP BID #30 gr 03/31/19 Docusate Sodium [Colace -] 100 mg PO Q8H PRN capsule 03/31/19 Guaifenesin Dm [Robitussin Dm -] 10 ml PO Q4H PRN cup 03/31/19 Levothyroxine [Synthroid -] 75 mcg PO DAILY@0700 #30 tablet 03/31/19 Metoprolol Succinate [Toprol XL -] 50 mg PO DAILY #30 tab.sr.24h 03/31/19
--- NOTE | 2019-03-31 09:27 | PN ---
Progress Note (short form) - Note Progress Note: Breathing feels overall better today. Slept well. No reported hemoptysis overnight. No CP. No acute events overnight. Intake & Output 03/28/19 03/29/19 03/30/19 03/31/19 23:59 23:59 23:59 23:59 Intake Total 2093 1883 1759 Balance 2093 1883 1759 Weight 200 lb Last Vital Signs Temp Pulse Resp BP Pulse Ox 98.4 F 69 18 148/79 93 L 03/31/19 06:00 03/31/19 06:00 03/31/19 06:00 03/31/19 06:00 03/30/19 21:00 Active Medications Acetaminophen (Tylenol -) 650 mg PO Q4H PRN PRN Reason: PAIN OR FEVER Last Admin: 03/23/19 21:36 Dose: 650 mg Albuterol Sulfate (Ventolin 0.083% Nebulizer Soln -) 1 amp NEB Q6H PRN PRN Reason: SHORT OF BREATH/WHEEZING Last Admin: 03/27/19 07:40 Dose: 1 amp Allopurinol (Zyloprim -) 100 mg PO BID [facility] [place] Last Admin: 03/30/19 22:08 Dose: 100 mg Amiodarone HCl (Cordarone -) 200 mg PO DAILY [facility] [place] Last Admin: 03/30/19 10:29 Dose: 200 mg Bacitracin (Bacitracin -) 1 applic TP BID [facility] [place] Last Admin: 03/30/19 22:07 Dose: 1 applic Benzocaine/Menthol (Cepacol Lozenge -) 1 each MM PRN PRN PRN Reason: SORE THROAT Cyanocobalamin (Vitamin B12 -) 1,000 mcg PO DAILY [facility] [place] Last Admin: 03/30/19 10:33 Dose: Not Given Docusate Sodium (Colace -) 100 mg PO Q8H PRN PRN Reason: CONSTIPATION Last Admin: 03/25/19 14:08 Dose: 100 mg Doxazosin Mesylate (Cardura -) 2 mg PO DAILY [facility] [place] Last Admin: 03/30/19 10:32 Dose: 2 mg Ergocalciferol (Drisdol -) 50,000 unit PO Q7D@1000 [facility] [place] Last Admin: 03/30/19 10:33 Dose: Not Given Folic Acid (Folic Acid -) 1 mg PO DAILY [facility] [place] Last Admin: 03/30/19 10:33 Dose: Not Given Guaifenesin (Robitussin Dm -) 10 ml PO Q4H PRN PRN Reason: COUGH Last Admin: 03/25/19 14:09 Dose: 10 ml Sodium Chloride (Normal Saline -) 1,000 mls @ 83 mls/hr IV ASDIR [facility] [place] Last Admin: 03/30/19 18:16 Dose: Not Given Levothyroxine Sodium (Synthroid -) 75 mcg PO DAILY@0700 [facility] [place] Last Admin: 03/31/19 06:02 Dose: 75 mcg Metoprolol Succinate (Toprol Xl -) 50 mg PO DAILY [facility] [place] Last Admin: 03/30/19 10:29 Dose: 50 mg Potassium Chloride (K-Dur -) 10 meq PO DAILY [facility] [place] Last Admin: 03/30/19 10:29 Dose: 10 meq Rosuvastatin Calcium (Crestor -) 10 mg PO DAILY [facility] [place] Last Admin: 03/30/19 10:29 Dose: 10 mg Gen: NAD at rest Heart: RRR Lung: decreased breath sounds at the bases, few rhonchi Abd: soft, nontender Ext: no edema Laboratory Results - last 24 hr 03/30/19 03/31/19 03/31/19 10:50 06:20 06:20 WBC 6.2 RBC 2.75 L Hgb 9.2 L Hct 27.9 L MCV 101.7 H MCH 33.6 MCHC 33.0 RDW 18.4 H Plt Count 318 MPV 7.3 L Absolute Neuts (auto) 5.3 Neutrophils % 85.8 H Lymphocytes % 6.6 L Monocytes % 4.5 Eosinophils % 2.6 Basophils % 0.5 Nucleated RBC % 0 PT with INR 16.10 H 14.70 H INR 1.36 H 1.24 H PTT (Actin FS) 38.9 H A/P Uterine Ca s/p Hysterectomy/RT Lung Nodule/Mass/Liver Lesion suspect metastatic disease r/o Pneumonia Hemoptysis Atrial Fibrillation HTN Hyperlipidemia Anemia - Will need PET - will need biopsy of lung mass via CT guided needle biopsy - Check Pre and Post ambulation O2 saturation check prior to DC Dr Zheng
[2019-03-31] MEDS ORDERED: PT OWN MED DRAWER 7, Y5N ONE (10:13)
[2019-03-31] MEDS: AMIODARONE HCL 200 MG TABLET (FP) PO SCH (10:15)
[2019-03-31] MEDS: ROSUVASTATIN CA 10 MG TABLET (FP) PO SCH (10:15)
[2019-03-31] MEDS: ALLOPURINOL 100 MG TABLET (FP) PO SCH (10:15)
[2019-03-31] MEDS: CYANOCOBALAMIN 1,000 MCG TABLET (FP) PO SCH (10:15)
[2019-03-31] MEDS: FOLIC ACID 1 MG TABLET (FP) PO SCH (10:15)
[2019-03-31] MEDS: DOXAZOSIN MESYLATE 2 MG TABLET (FP) PO SCH (10:15)
[2019-03-31] MEDS: POTASSIUM CHLORIDE TABS 10 MEQ TABLET.ER (FP) PO SCH (10:15)
[2019-03-31] MEDS: BACITRACIN 15 GM TUBE TOPICAL OINTMENT TP SCH (10:16)
--- NOTE | 2019-03-31 12:50 | EKG ---
Test Reason : Blood Pressure : / mmHG Vent. Rate : 072 BPM Atrial Rate : 075 BPM P-R Int : 176 ms QRS Dur : 090 ms QT Int : 454 ms P-R-T Axes : -08 -13 056 degrees QTc Int : 497 ms SINUS RHYTHM WITH SINUS ARRHYTHMIA WITH OCCASIONAL PREMATURE VENTRICULAR COMPLEXES PROLONGED QT ABNORMAL ECG WHEN COMPARED WITH ECG OF 22-MAR-2019 09:48, PREMATURE SUPRAVENTRICULAR COMPLEXES ARE NO LONGER PRESENT INCOMPLETE RIGHT BUNDLE BRANCH BLOCK IS NO LONGER PRESENT Confirmed by Saravanan Blanca MD ([id number]) on 03/31/2019 12:50:17 PM Referred By: Daniella WOMACK Confirmed By:Saravanan Blanca MD
--- NOTE | 2019-03-31 13:03 | PATH ---
Surgical Pathology Report Patient Name: KELECHI SIDDIQI Med. Rec. #: [id number] /Age/Gender: 1950 (Age: 68) / F Account: [id number] Location: [facility] MED/SURG Taken: 03/27/2019 Received: 03/27/2019 Reported: 03/31/2019 Physicians: Ludin Cervantes D.O. Specimen(s) Received DUODENAL BULB Clinical History Anemia, blood in stool Postoperative diagnosis: Sliding hiatal hernia, duodenitis, gastritis Evaluate for melanosis coli Final Diagnosis DUODENAL BULB, HYPERPIGMENTATION, BIOPSY: DUODENAL MUCOSA WITH SUBMUCOSAL BROWN-BLACK PIGMENT LADEN MACROPHAGES COMPATIBLE WITH PSEUDOMELANOSIS COLI. SEE COMMENT. Comment: Pseudomelanosis duodeni is associated with hypertension, gastrointestinal bleeding, renal failure, diabetes, and medications, such as iron and some antihypertensive medications. Suggest clinical and endoscopic correlation. Electronically Signed Bree Sheikh M.D. Gross Description Received in formalin, labeled "hyperpigmentation duodenal bulb" are 2 busby, irregular portions of soft tissue measuring 0.2 cm. in greatest dimension. The specimens are submitted in toto in one cassette. MLSZ/03/27/2019 sanrachna/03/27/2019
[2019-03-31 15:25] VITALS: BP 142/68; PULSE 68; TEMP 97.7
--- NOTE | 2019-03-31 18:17 | PATH ---
Surgical Pathology Report Patient Name: KELECHI SIDDIQI [facility]. Rec. #: [id number] /Age/Gender: 1950 (Age: 68) / F Account: [id number] Location: [facility] MED/SURG Taken: 03/30/2019 Received: 03/30/2019 Reported: 03/31/2019 Physicians: Rosy Zhou M.D. Specimen(s) Received A: SPLENIC FLEXURE POLYPS B: SIGMOID COLON POLYP Clinical History Anemia Postoperative diagnosis: Diverticulosis, lipoma, colon polyps Final Diagnosis A. SPLENIC FLEXURE POLYPS, POLYPECTOMY: TUBULAR ADENOMA, TWO FRAGMENTS. B. SIGMOID COLON POLYP, BIOPSY: POLYPOID COLONIC MUCOSA WITH FOCAL EDEMATOUS CHANGE IN THE LAMINA PROPRIA. Electronically Signed Boris Cordova M.D. Gross Description A. Received in formalin, labeled "splenic flexure polyps" are 2 busby, irregular portions of soft tissue measuring 0.3 cm. in greatest dimension. The specimens are submitted in toto in one cassette. B. Received in formalin, labeled "sigmoid colon polyp" is a busby, irregular portion of soft tissue measuring 0.1 cm. in greatest dimension. The specimens are submitted in toto in one cassette. __ KAREN/03/30/2019 yesenia/03/30/2019
== END 2019-03-31 19:01 | disposition home or self-care (01) | DRG 180 ==
LOC: JER 09:45 → JERBED 15:16 → J8W 18:50
PROVIDERS: ADMIT Family Medicine; ATTEND Family Medicine
PROC: 0DJ08ZZ Inspection of Upper Intestinal Tract, Via Natural or Artificial Opening Endoscopic (ICD-10-PCS; principal; 2019-03-27 12:15)
PROC: 0DJD8ZZ Inspection of Lower Intestinal Tract, Via Natural or Artificial Opening Endoscopic (ICD-10-PCS; 2019-03-30)
DX: C34.90 Malignant neoplasm of unspecified part of unspecified bronchus or lung (principal); J18.9 Pneumonia, unspecified organism; K57.91 Diverticulosis of intestine, part unspecified, without perforation or abscess with bleeding; N17.9 Acute kidney failure, unspecified; K92.2 Gastrointestinal hemorrhage, unspecified; R04.2 Hemoptysis; J90 Pleural effusion, not elsewhere classified; J98.4 Other disorders of lung; I48.91 Unspecified atrial fibrillation; I10 Essential (primary) hypertension; E78.5 Hyperlipidemia, unspecified; D64.9 Anemia, unspecified; K76.9 Liver disease, unspecified; E03.9 Hypothyroidism, unspecified; K57.90 Diverticulosis of intestine, part unspecified, without perforation or abscess without bleeding; K64.8 Other hemorrhoids; K44.9 Diaphragmatic hernia without obstruction or gangrene; K63.5 Polyp of colon; M10.9 Gout, unspecified; L98.9 Disorder of the skin and subcutaneous tissue, unspecified; E11.9 Type 2 diabetes mellitus without complications; C55 Malignant neoplasm of uterus, part unspecified; D63.8 Anemia in other chronic diseases classified elsewhere; D50.9 Iron deficiency anemia, unspecified; S00.31XA Abrasion of nose, initial encounter; Z85.42 Personal history of malignant neoplasm of other parts of uterus; Z85.528 Personal history of other malignant neoplasm of kidney
CPT/HCPCS: 36415; 36430; 36511; 71045-TC-FY; 71046-TC-FY; 71250-TC; 76705-TC; 80048; 80053; 82272; 82607; 82728; 83540; 83550; 83605; 83615; 83735; 84100; 84439; 84443; 84484; 85025; 85027; 85044; 85379; 85610; 85730; 86850; 86900; 86901; 86922; 87040; 87070; 87205; 87899; 88305-TC; 93005; 93010; 94640; 94761; 97116-GP; 97161-GP; 99285-25; J1439; J1756; J7030; P9038; P9058

== ENCOUNTER 2019-04-14 10:23 | Emergency (ER) | payer OTHER ==
[2019-04-14 10:36] VITALS: TEMP 97.9; BMI 34.3
--- NOTE | 2019-04-14 10:48 | PDOC ---
History of Present Illness - General Chief Complaint: Nasal Bleeding Stated Complaint: NASAL BLEEDING Time Seen by Provider: 04/14/19 10:48 History Source: Patient Exam Limitations: No Limitations - History of Present Illness Initial Comments: 68 year old female with PMH atrial fibrillation on Xarelto, HTN, HLD, anemia, hypothyroidism, on amiodarone, uterine cancer, pneumonia sent to ED by PCP for now resolved epistaxis. Pt reported last night she had epistaxis from her bilateral nares, that would intermittently occur. She reported this AM she was at her PCP and the nose bleed started again, prompting them to call EMS when they were unable to stop it with compression and nasal packing. She denied chest pain, shortness of breath, vomiting, lightheadedness, cough, fever. She also complained of intermittent bleeding from her left forearm, reporting that at some point in the last week she must have hit her arm on something, because she easily has skin tears. She denied redness surrounding the wound, numbness, tingling, weakness. She reported after she experienced all of the bleeding, she decided to not take her Xarelto today. She reported that by time she got to the ED her epistaxis had resolved. Past History - Past Medical History Allergies/Adverse Reactions: Allergies Allergy/AdvReac Type Severity Reaction Status Date / Time Penicillins Allergy Verified 04/14/19 10:33 Home Medications: Ambulatory Orders Allopurinol [Zyloprim -] 100 mg PO BID 03/22/19 Amiodarone HCl 200 mg PO DAILY 03/22/19 Cyanocobalamin (Vitamin B-12) [Vitamin B-12] 1,000 mcg PO DAILY 03/22/19 Doxazosin Mesylate 2 mg PO DAILY 03/22/19 Ergocalciferol (Vitamin D2) [Vitamin D2] 1 cap PO WEEKLY 03/22/19 Ergocalciferol (Vitamin D2) [Vitamin D2] 50,000 unit PO WEEKLY 03/22/19 Folic Acid - 1 mg PO DAILY 03/22/19 [place]-3/Dha/Epa/Fish Oil [[place] 3 500 Softgel] 350 mg PO DAILY 03/22/19 Potassium Chloride [Klor-Con M10] 10 mg PO DAILY 03/22/19 Rivaroxaban [Xarelto -] 20 mg PO DAILY 03/22/19 Rosuvastatin Calcium 10 mg PO DAILY 03/22/19 Acetaminophen [Tylenol .Regular Strength -] 650 mg PO Q4H PRN tablet 03/31/19 Albuterol 0.083% Nebulizer Bertha [Ventolin 0.083% Nebulizer Soln -] 1 amp NEB Q6H PRN #120 amp 03/31/19 Bacitracin - [Bacitracin Topical Ointment -] 1 applic TP BID #30 gr 03/31/19 Docusate Sodium [Colace -] 100 mg PO Q8H PRN capsule 03/31/19 Guaifenesin Dm [Robitussin Dm -] 10 ml PO Q4H PRN cup 03/31/19 Levothyroxine [Synthroid -] 75 mcg PO DAILY@0700 #30 tablet 03/31/19 Metoprolol Succinate [Toprol XL -] 50 mg PO DAILY #30 tab.sr.24h 03/31/19 Cancer: Yes (uterine with spot on her kidney) Cardiac Disorders: Yes COPD: No Diabetes: Yes HTN: Yes - Psycho Social/Smoking Cessation Hx Smoking History: Never smoked Have you smoked in the past 12 months: No Number of Cigarettes Smoked Daily: 20 If you are a former smoker, when did you quit?: 28 years ago Information on smoking cessation initiated: No Hx Alcohol Use: No Drug/Substance Use Hx: No Review of Systems - Review of Systems Able to Perform ROS?: Yes Comments:: ROS General: denied fever, chills, generalized weakness. HEENT: admitted to epistaxis. denied sore throat, rhinorrhea, ear pain. Cardiovascular: denied chest pain, palpitations, syncope, diaphoresis. Respiratory: denied shortness of breath, cough, sputum production, hemoptysis. Gastrointestinal: denied abdominal pain, nausea, vomiting, diarrhea, constipation, blood in stool. Genitourinary: denied dysuria, increased urinary frequency, hematuria, urinary incontinence, flank pain. Back: denied back pain. Musculoskeletal: denied joint pain, muscle pain, joint swelling. Neurological: denied headache, dizziness, numbness, tingling, weakness. Integumentary: admitted to laceration. denied rash, abrasion. Hematologic/Lymphatic: denied bruising or bleeding. PE Constitutional: Well-nourished, Well-developed, appearing stated age. HEENT: head is normocephalic, atraumatic. EOMI. PERRLA. no septal hematoma bilateral nares. no active nasal bleeding. no blood noted to posterior pharynx. Neck: supple. Full ROM. Cardiovascular: regular heart rhythm. no murmurs. no pericardial friction rub. Respiratory: clear to auscultation bilaterally. no crackles, rhonchi or wheezing. no stridor. Gastrointestinal: soft, nontender. normal bowel sounds. no rebound, guarding, masses. Extremities: peripheral pulses intact. no lower extremity edema. Neurological: CN 2-12 grossly intact. moves all four extremities. Psych: awake, alert, oriented x3. follows commands. answers questions appropriately. Skin: 3 cm partial thickness skin tear, no active bleeding. *Physical Exam - Vital Signs Last Vital Signs Temp Pulse Resp BP Pulse Ox 97.9 F 64 18 132/71 100 04/14/19 10:34 04/14/19 10:34 04/14/19 10:34 04/14/19 10:34 04/14/19 10:34 ED Treatment Course - LABORATORY CBC & Chemistry Diagram: 04/14/19 11:15 04/14/19 11:15 Medical Decision Making - Medical Decision Making 68 year old female with above PMH sent to ED for epistaxis, left forearm laceration/bleeding. Initial Vital Signs Temp Pulse Resp BP Pulse Ox 97.9 F 64 18 132/71 100 04/14/19 10:34 04/14/19 10:34 04/14/19 10:34 04/14/19 10:34 04/14/19 10:34 Afebrile. No tachycardia. No tachypnea. No hypotension. No hypoxia on room air. Labs ordered: CBC, CMP, PT/PTT/INR, Imaging ordered: none Medications ordered: boostrix Partial thickness laceration >24 hours from initial injury, actively healing by secondary intention. Wound was cleansed with 500 cc normal saline under pressure and covered bacitracin, with gauze pressure dressing to prevent further bleeding. 04/14/19 12:42 CBC WBC 5.0 K/mm3 (4.0-10.0) 04/14/19 11:15 RBC 2.98 M/mm3 (3.60-5.2) L 04/14/19 11:15 Hgb 10.1 GM/dL (10.7-15.3) L 04/14/19 11:15 Hct 30.7 % (32.4-45.2) L 04/14/19 11:15 MCV 102.9 fl (80-96) H 04/14/19 11:15 MCH 33.9 pg (25.7-33.7) H 04/14/19 11:15 MCHC 32.9 g/dl (32.0-36.0) 04/14/19 11:15 RDW 18.5 % (11.6-15.6) H 04/14/19 11:15 Plt Count 177 K/MM3 (134-434) D 04/14/19 11:15 MPV 7.6 fl (7.5-11.1) 04/14/19 11:15 Absolute Neuts (auto) 4.3 K/mm3 (1.5-8.0) 04/14/19 11:15 Neutrophils % 85.5 % (42.8-82.8) H 04/14/19 11:15 Lymphocytes % 8.4 % (8-40) D 04/14/19 11:15 Monocytes % 3.3 % (3.8-10.2) L 04/14/19 11:15 Eosinophils % 2.2 % (0-4.5) 04/14/19 11:15 Basophils % 0.6 % (0-2.0) 04/14/19 11:15 Nucleated RBC % 0 % (0-0) 04/14/19 11:15 No leukocytosis. Baseline macrocytic anemia. CMP Sodium 141 mmol/L (136-145) 04/14/19 11:15 Potassium 4.5 mmol/L (3.5-5.1) 04/14/19 11:15 Chloride 105 mmol/L (98-107) 04/14/19 11:15 Carbon Dioxide 30 mmol/L (21-32) 04/14/19 11:15 Anion Gap 6 MMOL/L (8-16) L 04/14/19 11:15 BUN 33.6 mg/dL (7-18) H 04/14/19 11:15 Creatinine 1.2 mg/dL (0.55-1.3) 04/14/19 11:15 Est GFR (CKD-EPI)AfAm 54.54 04/14/19 11:15 Est GFR (CKD-EPI)NonAf 47.06 04/14/19 11:15 Random Glucose 103 mg/dL (74-106) 04/14/19 11:15 Calcium 9.1 mg/dL (8.5-10.1) 04/14/19 11:15 Total Bilirubin 1.4 mg/dL (0.2-1) H 04/14/19 11:15 AST 20 U/L (15-37) 04/14/19 11:15 ALT 28 U/L (13-61) 04/14/19 11:15 Alkaline Phosphatase 91 U/L (45-117) 04/14/19 11:15 Total Protein 7.2 g/dl (6.4-8.2) 04/14/19 11:15 Albumin 3.7 g/dl (3.4-5.0) 04/14/19 11:15 TSH 3.71 uIU/ml (0.358-3.74) 04/14/19 11:15 INR, PTT INR 1.33 (0.83-1.09) H 04/14/19 11:15 No active bleeding in ED since arrival. Pt requesting discharge. Pt informed to F/U with PCP. Pt discharged. Discharge - Discharge Information Problems reviewed: Yes Clinical Impression/Diagnosis: Epistaxis Condition: Improved Disposition: HOME - Admission No - Follow up/Referral Referrals: Rosy Zhou MD [Primary Care Provider] - - Patient Discharge Instructions Patient Printed Discharge Instructions: DI for Nosebleed, Rivaroxaban Additional Instructions: Follow up with your primary care doctor within 3 days. Your care is not complete until you follow up. Bring all paperwork given to you today to your appointment. Return to the Emergency Department for bleeding unable to be stopped, chest pain , shortness of breath, vomiting, fever, lightheadedness, passing out or any other new, worsening or concerning symptoms. Wound care: keep the wound clean and dry during the day. when you shower let the water run over, you do not need to scrub or put soap in. cover the wound daily with bacitracin and gauze to prevent infection. observe the area for increasing redness, discharge - if you notice either of these then come back immediately to the Emergency Department. - Post Discharge Activity
[2019-04-14] MEDS ORDERED: DIPHTH,PERTUSS(ACELL),TET 0.5 ML DISP.SYRIN IM ONE ×2 (11:10→13:10)
[2019-04-14 11:31] LABS: HEMATOCRIT 30.7 % (32.4-45.2); HEMOGLOBIN 10.1 GM/dL (10.7-15.3); MEAN CELL VOLUME 102.9 fl (80-96); RBC 2.98 M/mm3 (3.60-5.2)
[2019-04-14 11:32] LABS: BASO % 0.6 % (0-2.0); EOS % 2.2 % (0-4.5); LYMPH % 8.4 % (8-40); MCH 33.9 pg (25.7-33.7); MCHC 32.9 g/dl (32.0-36.0); MEAN PLT VOLUME 7.6 fl (7.5-11.1); MONO % 3.3 % (3.8-10.2); NEUT % 85.5 % (42.8-82.8); PLATELET COUNT 177 K/MM3 (134-434); RDW 18.5 % (11.6-15.6)
[2019-04-14 11:50] LABS: INR 1.33 (0.83-1.09); PROTHROMBIN TIME (PATIENT) 15.7 SEC (9.7-13.0)
[2019-04-14 11:52] LABS: ACTIVATED PTT 46.1 SECONDS (25.2-36.5)
[2019-04-14 12:21] LABS: ALBUMIN 3.7 g/dl (3.4-5.0); BILIRUBIN,TOTAL 1.4 mg/dL (0.2-1); BLOOD UREA NITROGEN 33.6 mg/dL (7-18); CALCIUM 9.1 mg/dL (8.5-10.1); CREATININE 1.2 mg/dL (0.55-1.3); POTASSIUM 4.5 mmol/L (3.5-5.1); TOT PROT 7.2 g/dl (6.4-8.2)
[2019-04-14] MEDS ORDERED: BACITRACIN 15 GM TUBE TOPICAL OINTMENT TP ONE (12:47)
--- NOTE | 2019-04-14 13:03 | PDOC ---
Attending Attestation - Resident Resident Name: Elsa Wood - ED Attending Attestation I have performed the following: I have examined & evaluated the patient, The case was reviewed & discussed with the resident, I agree w/resident's findings & plan, Exceptions are as noted - HPI HPI: 04/14/19 12:59 68 years old the past medical history significant for A. fib on Xarelto hypertension hyperlipidemia anemia hypothyroidism on amnio uterine cancer pneumonia recently started on home oxygen presents to the ED with history of intermittent epistaxis presents with episode of epistaxis after recently be started on home oxygen Upon arrival to the emergency department epistaxis has stopped ROS: A complete review of 10 out of 10 review of systems is taken and is negative apart from what is previously mentioned below and in the HPI. - Physicial Exam PE: 04/14/19 13:01 Vitals: Triage Vital signs reviewed General Appearance: No acute distress, well nourished well developed, Head: Atraumatic, Nose: Nares patent bilaterally; no nasal congestion Throat: Posterior oropharynx without erythema, mucous membranes moist, Cardiac: Regular rate and rhythym, no murmurs, no rubs, no gallops, Lungs: Clear to auscultation bilateral, good air movement bilaterally, Abdomen: Soft, non distended, normal bowel sounds, non tender to palpation Extremities: Full range of motion to all extremities, no cyanosis, clubbing, or edema Skin: Warm and dry, skin tear with good hemostatsis Psych: Normal mood, normal affect - Medical Decision Making 04/14/19 13:02 Epistaxis has stopped no active bleeding on skin tear sticks updated Patient will follow-up with this week labs within normal limits Findings, the need for follow-up and strict return instructions discussed with patient.
[2019-04-14] MEDS ORDERED: BACITRACIN 15 GM TUBE TOPICAL OINTMENT ONE (13:10)
[2019-04-14 15:47] VITALS: BP 115/61; PULSE 74
== END 2019-04-14 13:23 | disposition home or self-care (01) ==
LOC: JER 10:23
PROC: 3E0234Z Introduction of Serum, Toxoid and Vaccine into Muscle, Percutaneous Approach (ICD-10-PCS; principal; 2019-04-14)
DX: R04.0 Epistaxis (principal); S51.812A Laceration without foreign body of left forearm, initial encounter; W22.8XXA Striking against or struck by other objects, initial encounter; Y93.89 Activity, other specified; Y92.89 Other specified places as the place of occurrence of the external cause; Y99.8 Other external cause status; I48.91 Unspecified atrial fibrillation; Z79.01 Long term (current) use of anticoagulants; I10 Essential (primary) hypertension; E78.5 Hyperlipidemia, unspecified; E03.9 Hypothyroidism, unspecified; Z87.01 Personal history of pneumonia (recurrent); D50.9 Iron deficiency anemia, unspecified; Z85.42 Personal history of malignant neoplasm of other parts of uterus; Z88.0 Allergy status to penicillin; Z79.899 Other long term (current) drug therapy
CPT/HCPCS: 36415; 80053; 84443; 85025; 85610; 85730; 86850; 86900; 86901; 90471; 90715; 99283-25

== ENCOUNTER 2020-07-06 02:35 | Emergency (ER) | payer OTHER ==
[2020-07-06 02:56] VITALS: BP 108/56; PULSE 89; TEMP 98.8; BMI 34.3
== END 2020-07-06 04:20 | disposition home or self-care (01) ==
LOC: JER 02:35
DX: L76.22 Postprocedural hemorrhage of skin and subcutaneous tissue following other procedure (principal)
CPT/HCPCS: 99281-25

== ENCOUNTER 2021-08-14 12:07 | Inpatient (IN) | payer OTHER ==
[2021-08-14] MEDS ORDERED: PANTOPRAZOLE SODIUM 40 MG VIAL IVPUSH ONE (12:45)
[2021-08-14] MEDS ORDERED: PANTOPRAZOLE SODIUM 80 MG/200 ML BAG IVPB ONE (12:53)
[2021-08-14] MEDS ORDERED: SODIUM CHLORIDE 0.9% 500 ML INFUS.BAG IV ONE (13:11)
[2021-08-14 14:15] LABS: BASO % 0.3 % (0-2.0); EOS % 0.5 % (0-4.5); HEMATOCRIT 24.4 % (32.4-45.2); HEMOGLOBIN 8.1 GM/dL (10.7-15.3); LYMPH % 8.5 % (8-40); MCH 33.5 pg (25.7-33.7); MCHC 33.1 g/dl (32.0-36.0); MEAN PLT VOLUME 8.1 fl (7.5-11.1); MONO % 5.4 % (3.8-10.2); NEUT % 85.3 % (42.8-82.8); PLATELET COUNT 230 10^3/uL (134-434); RBC 2.42 M/mm3 (3.60-5.2); RDW 16.6 % (11.6-15.6); WHITE BLOOD COUNT 4.9 K/mm3 (4.0-10.0)
[2021-08-14 14:33] LABS: BLOOD UREA NITROGEN 62.3 mg/dL (7-18); CALCIUM 8.5 mg/dL (8.5-10.1)
[2021-08-14 14:34] LABS: ALBUMIN 3.3 g/dl (3.4-5.0)
[2021-08-14 14:36] LABS: CREATININE 4.4 mg/dL (0.55-1.3)
[2021-08-14 14:38] LABS: BILIRUBIN,TOTAL 0.6 mg/dL (0.2-1); TOT PROT 6.8 g/dl (6.4-8.2)
[2021-08-14 14:58] LABS: ACTIVATED PTT 48.2 SECONDS (25.2-36.5); INR 2.59 (0.83-1.09); PROTHROMBIN TIME (PATIENT) 30.1 SEC (9.7-13.0)
[2021-08-14] MEDS ORDERED: ACETAMINOPHEN 325 MG TABLET (FP) PO PRN (17:41)
[2021-08-14 21:56] LABS: HEMOGLOBIN 7.4 GM/dL (10.7-15.3); MCH 33.7 pg (25.7-33.7); MCHC 33.5 g/dl (32.0-36.0); MEAN CELL VOLUME 100.4 fl (80-96); MEAN PLT VOLUME 7.6 fl (7.5-11.1); PLATELET COUNT 194 10^3/uL (134-434); RBC 2.19 M/mm3 (3.60-5.2); RDW 17.2 % (11.6-15.6); WHITE BLOOD COUNT 4.7 K/mm3 (4.0-10.0)
[2021-08-14] MEDS: PANTOPRAZOLE SODIUM 40 MG VIAL IVPUSH SCH (22:01)
[2021-08-14] MEDS: ALLOPURINOL 100 MG TABLET (FP) PO SCH (22:01)
[2021-08-14 23:33] VITALS: BMI 31.4
[2021-08-15] MEDS: LEVOTHYROXINE NA 75 MCG TABLET (FP) PO SCH (06:04)
[2021-08-15] MEDS ORDERED: SODIUM CHLORIDE 0.45%/POT 20 MEQ/1,000 ML INFUS.BAG IV SCH (08:00)
[2021-08-15] MEDS ORDERED: DOXAZOSIN MESYLATE 2 MG TABLET PO SCH (10:00)
[2021-08-15] MEDS: ALLOPURINOL 100 MG TABLET (FP) PO SCH ×2 (10:24→22:30)
[2021-08-15] MEDS: PANTOPRAZOLE SODIUM 40 MG VIAL IVPUSH SCH ×2 (10:24→22:30)
[2021-08-15] MEDS: AMIODARONE HCL 200 MG TABLET PO SCH (10:25)
[2021-08-15] MEDS: FOLIC ACID 1 MG TABLET (FP) PO SCH (10:25)
[2021-08-15] MEDS: ROSUVASTATIN CA 10 MG TABLET PO SCH (10:25)
[2021-08-15 10:26] LABS: BASO % 0.4 % (0-2.0); EOS % 0.7 % (0-4.5); HEMOGLOBIN 7.5 GM/dL (10.7-15.3); LYMPH % 9.8 % (8-40); MCH 33.5 pg (25.7-33.7); MCHC 32.6 g/dl (32.0-36.0); MEAN CELL VOLUME 102.9 fl (80-96); MEAN PLT VOLUME 7.9 fl (7.5-11.1); MONO % 4.9 % (3.8-10.2); NEUT % 84.2 % (42.8-82.8); PLATELET COUNT 187 10^3/uL (134-434); RBC 2.24 M/mm3 (3.60-5.2); RDW 17.1 % (11.6-15.6); WHITE BLOOD COUNT 3.8 K/mm3 (4.0-10.0)
[2021-08-15 10:40] LABS: CHLORIDE 110 mmol/L (98-107); SODIUM 140 mmol/L (136-145)
[2021-08-15 10:43] LABS: ANION GAP 8 MMOL/L (8-16); BLOOD UREA NITROGEN 49.3 mg/dL (7-18); CALCIUM 7.9 mg/dL (8.5-10.1); CO2 21 mmol/L (21-32); GLUCOSE,RANDOM 102 mg/dL (74-106); MAGNESIUM 2.5 mg/dL (1.8-2.4)
[2021-08-15 10:44] LABS: ALBUMIN 2.8 g/dl (3.4-5.0)
[2021-08-15 10:46] LABS: CREATININE 3.4 mg/dL (0.55-1.3); SGPT/ALT 60 U/L (13-61)
[2021-08-15 10:47] LABS: SGOT/AST 41 U/L (15-37)
[2021-08-15 10:48] LABS: BILIRUBIN,TOTAL 0.7 mg/dL (0.2-1); TOT PROT 5.6 g/dl (6.4-8.2)
[2021-08-15 10:49] LABS: ALK PHOS 63 U/L (45-117)
[2021-08-15] MEDS: LACTATED RINGERS SOLUTION 1,000 ML/1,000 ML INFUS.BAG IV SCH (13:22)
[2021-08-15 13:58] LABS: LDH 127 U/L (84-246)
[2021-08-15 14:37] LABS: RETICULOCYTES 3.33 % (0.5-1.5)
[2021-08-16] MEDS: LEVOTHYROXINE NA 75 MCG TABLET (FP) PO SCH (06:16)
[2021-08-16] MEDS: AMIODARONE HCL 200 MG TABLET PO SCH (09:01)
[2021-08-16 10:09] LABS: BASO % 0.4 % (0-2.0); EOS % 1.4 % (0-4.5); HEMATOCRIT 28.5 % (32.4-45.2); HEMOGLOBIN 9.5 GM/dL (10.7-15.3); LYMPH % 11.4 % (8-40); MCH 33.4 pg (25.7-33.7); MCHC 33.3 g/dl (32.0-36.0); MEAN CELL VOLUME 100.4 fl (80-96); MEAN PLT VOLUME 7.6 fl (7.5-11.1); MONO % 5.2 % (3.8-10.2); NEUT % 81.6 % (42.8-82.8); PLATELET COUNT 198 10^3/uL (134-434); RBC 2.83 M/mm3 (3.60-5.2); RDW 17.7 % (11.6-15.6); RETICULOCYTES 2.96 % (0.5-1.5); WHITE BLOOD COUNT 4.7 K/mm3 (4.0-10.0)
[2021-08-16 10:40] LABS: CALCIUM 8.4 mg/dL (8.5-10.1)
[2021-08-16 10:41] LABS: CREATININE 2.6 mg/dL (0.55-1.3)
[2021-08-16] MEDS: FOLIC ACID 1 MG TABLET (FP) PO SCH (11:17)
[2021-08-16] MEDS: PANTOPRAZOLE SODIUM 40 MG VIAL IVPUSH SCH ×2 (11:17→21:17)
[2021-08-16] MEDS: ROSUVASTATIN CA 10 MG TABLET PO SCH (11:17)
[2021-08-16] MEDS: ALLOPURINOL 100 MG TABLET (FP) PO SCH ×2 (11:18→21:17)
[2021-08-16] MEDS: LACTATED RINGERS SOLUTION 1,000 ML/1,000 ML INFUS.BAG IV SCH (11:19)
[2021-08-16] MEDS ORDERED: PEG 3350/NA SULF BICARB CL/KCL 4000 ML SOLN.RECON PO ONE (12:00)
[2021-08-16] MEDS ORDERED: BISACODYL 5 MG TABLET.DR (FP) PO ONE (18:00)
[2021-08-17] MEDS: LACTATED RINGERS SOLUTION 1,000 ML/1,000 ML INFUS.BAG IV SCH ×2 (00:37→11:03)
[2021-08-17] MEDS: LEVOTHYROXINE NA 75 MCG TABLET (FP) PO SCH (06:03)
[2021-08-17] MEDS: ROSUVASTATIN CA 10 MG TABLET PO SCH (09:26)
[2021-08-17] MEDS: AMIODARONE HCL 200 MG TABLET PO SCH (09:26)
[2021-08-17] MEDS: PANTOPRAZOLE SODIUM 40 MG VIAL IVPUSH SCH ×2 (09:26→21:25)
[2021-08-17] MEDS: ALLOPURINOL 100 MG TABLET (FP) PO SCH ×2 (09:26→21:25)
[2021-08-17] MEDS: FOLIC ACID 1 MG TABLET (FP) PO SCH (09:26)
[2021-08-17 13:14] LABS: BASO % 0.3 % (0-2.0); EOS % 1.7 % (0-4.5); HEMATOCRIT 26.1 % (32.4-45.2); HEMOGLOBIN 8.6 GM/dL (10.7-15.3); LYMPH % 8.7 % (8-40); MCH 33.5 pg (25.7-33.7); MCHC 33.1 g/dl (32.0-36.0); MEAN CELL VOLUME 101.3 fl (80-96); MEAN PLT VOLUME 7.8 fl (7.5-11.1); MONO % 4.5 % (3.8-10.2); NEUT % 84.8 % (42.8-82.8); PLATELET COUNT 191 10^3/uL (134-434); RBC 2.57 M/mm3 (3.60-5.2); RDW 17.6 % (11.6-15.6); WHITE BLOOD COUNT 5.4 K/mm3 (4.0-10.0)
[2021-08-17 13:17] LABS: INR 1.09 (0.83-1.09); PROTHROMBIN TIME (PATIENT) 12.5 SEC (9.7-13.0)
[2021-08-17 13:29] LABS: BLOOD UREA NITROGEN 17.3 mg/dL (7-18)
[2021-08-18] MEDS: LEVOTHYROXINE NA 75 MCG TABLET (FP) PO SCH (06:33)
[2021-08-18 06:44] VITALS: TEMP 98.3
[2021-08-18 10:10] LABS: HEMATOCRIT 25.9 % (32.4-45.2); HEMOGLOBIN 8.7 GM/dL (10.7-15.3); MCH 33.9 pg (25.7-33.7); MCHC 33.8 g/dl (32.0-36.0); MEAN CELL VOLUME 100.4 fl (80-96); MEAN PLT VOLUME 7.4 fl (7.5-11.1); PLATELET COUNT 179 10^3/uL (134-434); RBC 2.58 M/mm3 (3.60-5.2); RDW 17.1 % (11.6-15.6); WHITE BLOOD COUNT 6.1 K/mm3 (4.0-10.0)
[2021-08-18] MEDS: AMIODARONE HCL 200 MG TABLET PO SCH (10:11)
[2021-08-18] MEDS: ROSUVASTATIN CA 10 MG TABLET PO SCH (10:11)
[2021-08-18] MEDS: PANTOPRAZOLE SODIUM 40 MG VIAL IVPUSH SCH (10:12)
[2021-08-18] MEDS: FOLIC ACID 1 MG TABLET (FP) PO SCH (10:12)
[2021-08-18] MEDS: ALLOPURINOL 100 MG TABLET (FP) PO SCH (10:13)
[2021-08-18 10:26] LABS: ALBUMIN 2.8 g/dl (3.4-5.0); BLOOD UREA NITROGEN 14.3 mg/dL (7-18); CALCIUM 8.5 mg/dL (8.5-10.1)
[2021-08-18 10:31] LABS: BILIRUBIN,TOTAL 0.9 mg/dL (0.2-1); TOT PROT 5.7 g/dl (6.4-8.2)
[2021-08-18 11:51] VITALS: BP 154/50; PULSE 80
[2021-08-18 13:08] LABS: GLIADIN ANTIBODY IGA 5 units (0-19); GLIADIN ANTIBODY IGG 3 units (0-19); TRANSGLUTAMINASE IGG < 2 U/mL (0-5)
[2021-08-19 01:08] LABS: ALPHA 2 MACROGLOBULINS,QN 98 mg/dL (110-276); ALT(SGPT)P5P 44 IU/L (0-40); APOLIPOPROTEIN A-1. 123 mg/dL (116-209); CHOLESTEROL TOTAL 120 mg/dL (100-199); FIBROSIS SCORE- 0.08 (0.00-0.21); GLUCOSE SERUM 82 mg/dL (65-99); HEIGHT. 64 in (.); WEIGHT. 183 LBS (.)
== END 2021-08-18 14:04 | disposition left against medical advice (07) | DRG 378 ==
LOC: JER 12:07 → JERBED 16:24 → J5S 21:17
PROVIDERS: ADMIT Family Medicine; ATTEND Family Medicine
PROC: 30233N1 Transfusion of Nonautologous Red Blood Cells into Peripheral Vein, Percutaneous Approach (ICD-10-PCS; 2021-08-15)
PROC: 0DB68ZX Excision of Stomach, Via Natural or Artificial Opening Endoscopic, Diagnostic (ICD-10-PCS; 2021-08-16)
PROC: 0DBL8ZX Excision of Transverse Colon, Via Natural or Artificial Opening Endoscopic, Diagnostic (ICD-10-PCS; 2021-08-17)
PROC: 0DBN8ZX Excision of Sigmoid Colon, Via Natural or Artificial Opening Endoscopic, Diagnostic (ICD-10-PCS; principal; 2021-08-17 10:30)
DX: K92.2 Gastrointestinal hemorrhage, unspecified (principal); N17.9 Acute kidney failure, unspecified; C79.00 Secondary malignant neoplasm of unspecified kidney and renal pelvis; I48.0 Paroxysmal atrial fibrillation; Z85.42 Personal history of malignant neoplasm of other parts of uterus; E78.5 Hyperlipidemia, unspecified; E03.9 Hypothyroidism, unspecified; K64.8 Other hemorrhoids; R91.8 Other nonspecific abnormal finding of lung field; D50.9 Iron deficiency anemia, unspecified; K44.9 Diaphragmatic hernia without obstruction or gangrene; K29.50 Unspecified chronic gastritis without bleeding; K57.90 Diverticulosis of intestine, part unspecified, without perforation or abscess without bleeding; K76.0 Fatty (change of) liver, not elsewhere classified; I12.9 Hypertensive chronic kidney disease with stage 1 through stage 4 chronic kidney disease, or unspecified chronic kidney disease; N18.30 Chronic kidney disease, stage 3 unspecified; K63.5 Polyp of colon
CPT/HCPCS: 36415; 36430; 71045-TC-FY; 71250-TC; 74176-TC; 80048; 80053; 82272; 82607; 82728; 82746; 82784; 83516; 83540; 83550; 83615; 83735; 84155; 84165; 84443; 85025; 85027; 85045; 85610; 85730; 86334; 86850; 86900; 86901; 86922; 88305-TC; 93005; 93010; 99285-25; C9803; J3480; P9058; U0003; U0005

== ENCOUNTER 2021-10-25 16:56 | Emergency (ER) | payer OTHER ==
[2021-10-25 17:29] VITALS: BMI 28.8
[2021-10-25] MEDS ORDERED: OXYMETAZOLINE 0.05% NASAL SOLUTION 15 ML BOTTLE NS PRN (18:03)
[2021-10-25 18:43] LABS: BASO % 0.5 % (0-2.0); EOS % 0.2 % (0-4.5); HEMATOCRIT 23.3 % (32.4-45.2); HEMOGLOBIN 7.8 GM/dL (10.7-15.3); LYMPH % 9.9 % (8-40); MCH 33.4 pg (25.7-33.7); MCHC 33.5 g/dl (32.0-36.0); MEAN CELL VOLUME 99.8 fl (80-96); MEAN PLT VOLUME 7.2 fl (7.5-11.1); MONO % 5.9 % (3.8-10.2); NEUT % 83.5 % (42.8-82.8); PLATELET COUNT 242 10^3/uL (134-434); RBC 2.33 M/mm3 (3.60-5.2); RDW 16.1 % (11.6-15.6); WHITE BLOOD COUNT 4.5 K/mm3 (4.0-10.0)
[2021-10-25 18:57] VITALS: BP 118/49; PULSE 65; TEMP 97.6
[2021-10-25] MEDS ORDERED: TRANEXAMIC ACID 1000 MG/10 ML VIAL IVPB ONE (19:23)
[2021-10-25] MEDS ORDERED: LIDOCAINE 1%/EPI 1:100000 (20 ML MULTI DOSE VIAL) IJ ONE (19:23)
[2021-10-25] MEDS ORDERED: LIDOCAINE 1%/EPI 1:100000 (20 ML MULTI DOSE VIAL) ONE (19:28)
[2021-10-25] MEDS ORDERED: TRANEXAMIC ACID 1000 MG/10 ML VIAL ONE (19:45)
== END 2021-10-25 21:30 | disposition home or self-care (01) ==
LOC: JER 16:56
PROC: 3E033GC Introduction of Other Therapeutic Substance into Peripheral Vein, Percutaneous Approach (ICD-10-PCS; principal; 2021-10-25)
DX: R04.0 Epistaxis (principal)
CPT/HCPCS: 36415; 85025; 86850; 86900; 86901; 99284-25

== ENCOUNTER 2022-02-12 11:52 | Inpatient (IN) | payer OTHER ==
[2022-02-12] MEDS ORDERED: LACTATED RINGERS SOLUTION 1000 ML INFUS.BAG IV ONE ×2 (12:52→14:12)
[2022-02-12 13:26] LABS: BASO % 0.3 % (0-2.0); EOS % 0.5 % (0-4.5); HEMATOCRIT 23.3 % (32.4-45.2); HEMOGLOBIN 7.6 GM/dL (10.7-15.3); LYMPH % 8.4 % (8-40); MCH 32.8 pg (25.7-33.7); MCHC 32.6 g/dl (32.0-36.0); MEAN CELL VOLUME 100.6 fl (80-96); MEAN PLT VOLUME 7.8 fl (7.5-11.1); MONO % 5.8 % (3.8-10.2); PLATELET COUNT 192 10^3/uL (134-434); RBC 2.32 M/mm3 (3.60-5.2); RDW 16.7 % (11.6-15.6); WHITE BLOOD COUNT 4.4 K/mm3 (4.0-10.0)
[2022-02-12 13:50] LABS: CALCIUM 8.4 mg/dL (8.5-10.1)
[2022-02-12 13:51] LABS: ALBUMIN 3.2 g/dl (3.4-5.0); BLOOD UREA NITROGEN 63.4 mg/dL (7-18); MAGNESIUM 2.5 mg/dL (1.8-2.4)
[2022-02-12 13:54] LABS: BILIRUBIN,TOTAL 0.6 mg/dL (0.2-1); TOT PROT 6.3 g/dl (6.4-8.2)
[2022-02-12 13:58] LABS: CREATININE 5.8 mg/dL (0.55-1.3)
[2022-02-12] MEDS: SODIUM CHLORIDE 1,000 ML IV SCH (17:15)
[2022-02-12] MEDS ORDERED: ACETAMINOPHEN 325 MG TABLET (FP) PO PRN (17:57)
[2022-02-12 20:02] LABS: BASO % 0.3 % (0-2.0); EOS % 0.6 % (0-4.5); HEMATOCRIT 23.9 % (32.4-45.2); HEMOGLOBIN 7.8 GM/dL (10.7-15.3); LYMPH % 8.7 % (8-40); MCH 33.3 pg (25.7-33.7); MCHC 32.7 g/dl (32.0-36.0); MEAN CELL VOLUME 101.8 fl (80-96); MEAN PLT VOLUME 7.9 fl (7.5-11.1); NEUT % 85.4 % (42.8-82.8); PLATELET COUNT 183 10^3/uL (134-434); RBC 2.35 M/mm3 (3.60-5.2); RDW 16.7 % (11.6-15.6); WHITE BLOOD COUNT 4.4 K/mm3 (4.0-10.0)
[2022-02-13] MEDS ORDERED: PANTOPRAZOLE SODIUM 40 MG VIAL ONE (00:46)
[2022-02-13] MEDS ORDERED: ROSUVASTATIN CA 20 MG TABLET ONE (00:46)
[2022-02-13] MEDS: ROSUVASTATIN CA 10 MG TABLET PO SCH ×2 (00:55→17:41)
[2022-02-13] MEDS: PANTOPRAZOLE SODIUM 40 MG VIAL IVPUSH SCH ×2 (00:55→12:14)
[2022-02-13] MEDS: ALLOPURINOL 100 MG TABLET (FP) PO SCH ×3 (01:33→21:55)
[2022-02-13 07:23] LABS: BASO % 0.3 % (0-2.0); EOS % 0.9 % (0-4.5); HEMATOCRIT 21.4 % (32.4-45.2); LYMPH % 9.5 % (8-40); MCH 32.6 pg (25.7-33.7); MCHC 31.9 g/dl (32.0-36.0); MEAN CELL VOLUME 102.2 fl (80-96); MEAN PLT VOLUME 8.3 fl (7.5-11.1); MONO % 5.7 % (3.8-10.2); NEUT % 83.6 % (42.8-82.8); PLATELET COUNT 175 10^3/uL (134-434); RDW 16.6 % (11.6-15.6); WHITE BLOOD COUNT 4.2 K/mm3 (4.0-10.0)
[2022-02-13 07:24] LABS: ALBUMIN 2.7 g/dl (3.4-5.0); BLOOD UREA NITROGEN 51.1 mg/dL (7-18); CALCIUM 7.7 mg/dL (8.5-10.1); MAGNESIUM 2.2 mg/dL (1.8-2.4)
[2022-02-13 07:27] LABS: CREATININE 4.9 mg/dL (0.55-1.3); PHOSPHOROUS 3.8 mg/dL (2.5-4.9)
[2022-02-13 07:28] LABS: BILIRUBIN,TOTAL 0.6 mg/dL (0.2-1); TOT PROT 5.5 g/dl (6.4-8.2)
[2022-02-13] MEDS: LEVOTHYROXINE NA 75 MCG TABLET (FP) PO SCH (07:55)
[2022-02-13 08:08] LABS: HEMOGLOBIN 6.8 GM/dL (10.7-15.3)
[2022-02-13] MEDS ORDERED: LEVOTHYROXINE NA 75 MCG TABLET (FP) ONE (09:19)
[2022-02-13] MEDS ORDERED: FUROSEMIDE 40 MG/4 ML INJECTABLE VIAL IVPUSH ONE (10:15)
[2022-02-13] MEDS: AMIODARONE HCL 200 MG TABLET PO SCH (12:13)
[2022-02-13 13:18] VITALS: BMI 31.1
[2022-02-13 18:40] LABS: EPI CELLS 26 /uL (0-25.1); HYALINE CASTS 1 /uL (0-3.1); URINE APPEARANCE CLOUDY; URINE BACTERIA >9,000 /uL (0-1359); URINE BILIRUBIN NEGATIVE (NEGATIVE); URINE COLOR YELLOW; URINE GLUCOSE (UA) NEGATIVE (NEGATIVE); URINE KETONE NEGATIVE (NEGATIVE); URINE LEUK ESTERASE 2+ (NEGATIVE); URINE NITRITE NEGATIVE (NEGATIVE); URINE PROTEIN 1+ (NEGATIVE); URINE RBC 23 /uL (0-23.9); URINE WBC 246 /uL (0-25.8)
[2022-02-13] MEDS: SODIUM CHLORIDE 1,000 ML IV SCH (21:54)
[2022-02-13] MEDS: VANCOMYCIN 250 MG/5 ML ORAL SOLUTION PO SCH (23:40)
[2022-02-14] MEDS: VANCOMYCIN 250 MG/5 ML ORAL SOLUTION PO SCH ×2 (06:10→11:52)
[2022-02-14] MEDS: LEVOTHYROXINE NA 75 MCG TABLET (FP) PO SCH (06:10)
[2022-02-14 07:20] VITALS: TEMP 98.1
[2022-02-14] MEDS: ALLOPURINOL 100 MG TABLET (FP) PO SCH (09:59)
[2022-02-14] MEDS: AMIODARONE HCL 200 MG TABLET PO SCH (09:59)
[2022-02-14] MEDS ORDERED: FAMOTIDINE 20 MG TABLET PO SCH (10:00)
[2022-02-14] MEDS ORDERED: FAMOTIDINE 10 MG TABLET PO SCH (10:00)
[2022-02-14 12:07] VITALS: BP 142/54; PULSE 60; RESP 16
[2022-02-14 12:07] LABS: BASO % 0.3 % (0-2.0); EOS % 0.5 % (0-4.5); HEMATOCRIT 29.7 % (32.4-45.2); LYMPH % 6.6 % (8-40); MCHC 33.7 g/dl (32.0-36.0); MEAN CELL VOLUME 97.7 fl (80-96); MEAN PLT VOLUME 7.5 fl (7.5-11.1); NEUT % 87.6 % (42.8-82.8); PLATELET COUNT 174 10^3/uL (134-434); RBC 3.04 M/mm3 (3.60-5.2); RDW 18.4 % (11.6-15.6); WHITE BLOOD COUNT 6.1 K/mm3 (4.0-10.0)
[2022-02-14 12:19] LABS: CHLORIDE 116 mmol/L (98-107); SODIUM 145 mmol/L (136-145)
[2022-02-14 12:30] LABS: CALCIUM 8.4 mg/dL (8.5-10.1)
[2022-02-14 12:31] LABS: ANION GAP 9 MMOL/L (8-16); BLOOD UREA NITROGEN 41.7 mg/dL (7-18); CO2 20 mmol/L (21-32); GLUCOSE,RANDOM 81 mg/dL (74-106)
[2022-02-14 12:33] LABS: PHOSPHOROUS 2.9 mg/dL (2.5-4.9)
[2022-02-14 12:34] LABS: BILIRUBIN,TOTAL 3.1 mg/dL (0.2-1); CREATININE 3.6 mg/dL (0.55-1.3); SGOT/AST 22 U/L (15-37); SGPT/ALT 44 U/L (13-61)
[2022-02-14 12:35] LABS: ALK PHOS 67 U/L (45-117); TOT PROT 6.3 g/dl (6.4-8.2)
[2022-02-16 19:48] LABS: IRON SERUM 248 ug/dL (50-175)
[2022-02-16 19:50] LABS: TOTAL IRON BINDING CAPACITY 257 ug/dL (250-450)
== END 2022-02-14 13:11 | disposition left against medical advice (07) | DRG 812 ==
LOC: JER 11:52 → JERBED 13:51 → J5S 02-13 10:59
PROVIDERS: ADMIT Family Medicine; ATTEND Family Medicine
DX: D64.9 Anemia, unspecified (principal); N17.9 Acute kidney failure, unspecified; A04.72 Enterocolitis due to Clostridium difficile, not specified as recurrent; I48.91 Unspecified atrial fibrillation; E78.5 Hyperlipidemia, unspecified; E03.9 Hypothyroidism, unspecified; R19.7 Diarrhea, unspecified; M10.9 Gout, unspecified; I12.9 Hypertensive chronic kidney disease with stage 1 through stage 4 chronic kidney disease, or unspecified chronic kidney disease; N18.9 Chronic kidney disease, unspecified; E88.09 Other disorders of plasma-protein metabolism, not elsewhere classified; E83.51 Hypocalcemia; Z53.29 Procedure and treatment not carried out because of patient's decision for other reasons; E86.1 Hypovolemia; N28.89 Other specified disorders of kidney and ureter
CPT/HCPCS: 36415; 36430; 36511; 71250-TC; 74176-TC; 76775-TC; 80053; 80061; 81003; 82570; 82607; 82728; 82746; 82962; 83036; 83540; 83550; 83735; 84100; 84156; 84300; 84443; 84484; 84540; 85025; 86140; 86850; 86900; 86901; 86922; 87045; 87046; 87186; 87205; 87324; 87449; 93005; 93010; 99285-25; C9803-CS; P9016; P9058; U0003; U0005

== ENCOUNTER 2025-02-05 11:53 | Emergency (ER) | payer OTHER ==
[2025-02-05 12:05] VITALS: TEMP 97.7
[2025-02-05 13:45] LABS: MCHC 32.1 g/dl (32.2-35.5); MEAN CELL VOLUME 106.9 fl (79.4-94.8); MEAN PLT VOLUME 8.5 fl (9.4-12.3); RDW 14.7 % (12.4-16.6)
[2025-02-05] MEDS ORDERED: DIPHTH,PERTUSS(ACELL),TET 0.5 ML DISP.SYRIN IM ONE (14:50)
[2025-02-05] MEDS: DIPHTH,PERTUSS(ACELL),TET 0.5 ML DISP.SYRIN IM ONE (14:59)
[2025-02-05 15:32] VITALS: BP 108/60; PULSE 90; RESP 18
== END 2025-02-05 15:32 | disposition home or self-care (01) ==
LOC: JERFT 11:53 → JER 11:53
PROC: 3E0234Z Introduction of Serum, Toxoid and Vaccine into Muscle, Percutaneous Approach (ICD-10-PCS; principal; 2025-02-05)
DX: S81.812A Laceration without foreign body, left lower leg, initial encounter (principal); S70.219A Abrasion, unspecified hip, initial encounter; Z23 Encounter for immunization; W26.8XXA Contact with other sharp object(s), not elsewhere classified, initial encounter
CPT/HCPCS: 36415; 85027; 90715; 99284-25